=== PATIENT | female | born 1960 | race Caucasian/White ===

== ENCOUNTER → 2018-12-01 14:50 | Outpatient (CLI) | payer OTHER, MEDICAID, SELFPAY ==
--- NOTE | 2018-12-01 | DI.RAD.S_ITS ---
PROCEDURE: XR SHOULDER LT MIN 2V INDICATIONS: L SHOULDER PAIN TECHNIQUE: 3 views of the shoulder were acquired. COMPARISON: None. FINDINGS: Bones: No fractures or dislocations but there is moderately severe a.c. joint osteoarthritis. No suspicious bony lesions. Visualized ribs appear intact. Soft tissues: No suspicious soft tissue calcifications. IMPRESSION: Moderately severe a.c. joint osteoarthritis, no recent trauma found. Dictated by: Prabhu Cochran M.D. on 12/01/2018 at 15:53 Approved by: Prabhu Cochran M.D. on 12/01/2018 at 15:54
== END ==
PROVIDERS: PCP Family Medicine; Visit Provider Nurse Practitioner
DX: M25.512 Pain in left shoulder (principal); M19.012 Primary osteoarthritis, left shoulder; G89.29 Other chronic pain
CPT/HCPCS: 73030

== ENCOUNTER 2018-12-01 15:19 | Emergency (ER) | payer OTHER, MEDICAID, SELFPAY ==
[2018-12-01 15:41] VITALS: BP 147/84; PULSE 92; RESP 18; TEMP 37.2; O2SAT 98
[2018-12-01 17:55] VITALS: BP 138/79; PULSE 90; RESP 17; O2SAT 100
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
[2018-12-01] MEDS: SODIUM CHLORIDE 0.9% 1,000 ML 150 ML IV (18:30)
[2018-12-01] MEDS: PANTOPRAZOLE 40 MG VIAL IV (18:30)
[2018-12-01 18:33] LABS: Add Manual Diff / Slide Review NO; Basophils Absolute Auto 0 /uL (0-100); Basophils Percent Auto 0.5 % (0-2); Eosinophils Absolute Auto 0 /uL (0-450); Eosinophils Percent Auto 0.7 % (2-4); Hematocrit 33.3 % (36-46); Hemoglobin 11.3 g/dL (12.0-16.0); Lymphocytes Absolute Auto 2400 /uL (1100-4500); Lymphocytes Percent Auto 35.8 % (25-40); Mean Corpuscular HGB Conc 33.8 % (30-36); Mean Corpuscular Hemoglobin 36.1 PG (26-34); Mean Corpuscular Volume 106.8 fL (80-100); Monocytes Absolute Auto 700 /uL (0-900); Monocytes Percent Auto 10.4 % (3-14); Neutrophils Absolute Auto 3600 /uL (1500-7000); Neutrophils Percent Auto 52.6 % (50-75); Platelet Count 111 X10^3/uL (150-400); Red Blood Cell Count 3.12 X10^6/uL (4.0-5.2); White Blood Cell Count 6.8 X10^3/uL (4.5-11.0)
--- NOTE | 2018-12-01 18:33 | DI.CT.S_ITS ---
PROCEDURE: CT ABDOMEN PELVIS W CON INDICATIONS: abd bloating, vomiting blood. TECHNIQUE: After the administration of intravenous contrast, 5 mm thick sections acquired from the diaphragm to the symphysis. 5 mm coronal and sagittal reformats were acquired. For radiation dose reduction, the following was used: automated exposure control, adjustment of mA and/or kV according to patient size. COMPARISON: [facility], CT, CT PELVIS W CON, 12/05/2015, 21:42. FINDINGS: Image quality: Excellent. ABDOMEN: Lung bases: Lung bases are clear. Heart size is normal. Solid organs: Liver is enlarged and cirrhotic in appearance. Gallbladder is unremarkable. Biliary system is non dilated. Pancreas enhances normally. Spleen is normal in size and enhancement. No adrenal nodules. Kidneys demonstrate normal size and enhancement, without hydronephrosis. Peritoneum and bowel: Bowel loops are nonobstructed. There is an appearance of thickening and pericolonic inflammation surrounding the right colon extending to the proximal transverse colon. The terminal ileum is mildly prominent. The appendix is not clearly identified. Mild perihepatic fluid is present as well as fluid within the right farhad-abdomen and pelvis. Nodes and vessels: No retroperitoneal or mesenteric adenopathy by size criteria. Aorta and inferior vena cava are normal in size. Miscellaneous: No ventral hernias. Bilateral breast implants are present with appearance of partial contains rupture. PELVIS: Genitourinary: Bladder is markedly distended with a Vo catheter. Miscellaneous: No inguinal hernias or adenopathy. Bones: No suspicious bony lesions. No vertebral body compression fractures. IMPRESSION: 1. Perihepatic fluid extending to the right paracolic gutter and pelvis. There is thickening inflammatory change surrounding significant portions of the right colon extending to the transverse colon as well as terminal ileum. The appendix is not definitively identified. Overall appearance is suggestive of colitis secondary to infection or inflammation. If concern exists for appendicitis, further evaluation with oral contrast may be helpful for delineation of bowel loops amidst the inflammatory change. 2. Hepatomegaly with cirrhotic appearance. 3. Markedly bladder with Vo catheter, similar to prior exam. Dictated by: Donna Camarillo M.D. on 12/01/2018 at 19:54 Approved by: Donna Camarillo M.D. on 12/01/2018 at 20:03
[2018-12-01 18:44] LABS: Bilirubin Urine UA NEGATIVE (NEGATIVE); Color Urine UA YELLOW; Glucose Urine UA NEGATIVE (Negative); Ketones Urine UA NEGATIVE (NEGATIVE); Leukocyte Esterase Urine UA TRACE (NEGATIVE); Nitrite Urine UA POSITIVE (Negative); Occult Blood Urine UA TRACE-LYSED (Negative); Protein Urine UA NEGATIVE (Negative); Specific Gravity Urine UA 1.015 (1.000-1.035)
[2018-12-01 18:47] LABS: Alanine Aminotransferase 46 IU/L (9-52); Albumin 2.9 g/dL (3.5-5.0); Albumin Globulin Ratio 0.7 (1.0-2.8); Alkaline Phosphatase 183 U/L (38-126); Aspartate Aminotransferase 65 IU/L (14-36); Bilirubin Total 1.3 mg/dL (0.2-1.3); Blood Urea Nitrogen 12 mg/dL (7-17); Calcium 8.2 mg/dL (8.4-10.2); Carbon Dioxide 20 mmol/L (22-32); Chloride 119 mmol/L (98-107); Estimated Glomerular Filt Rate > 60.0 mL/min (>60); Globulin 3.9 g/dL (1.7-4.1); Glucose 91 mg/dL (80-110); HEMOLYSIS < 15 (0-50); Lipase 332 U/L (23-300); Potassium 3.9 mmol/L (3.4-5.1); Sodium 144 mmol/L (137-145); Total Protein 6.8 g/dL (6.3-8.2)
[2018-12-01 18:53] LABS: Appearance Urine UA Cloudy; Squamous Epithelial Cell Urine 0-1 /HPF (0-5/HPF)
[2018-12-01 18:54] LABS: Amorphous Sediment Urine 2+; Bacteria Urine Many (>30); Culture Indicated Urine Specimen Cultured; RBC Urine 1-5/HPF (0-5/HPF); WBC Urine 30-100/HPF (0-5/HPF)
[2018-12-01 20:39] VITALS: BP 109/58; PULSE 80; RESP 17; O2SAT 100
[2018-12-01] MEDS: MAG HYDROX/ALUMINUM/SIMETH SUS 20 ML, LIDOCAINE VISCOUS 2% 15 ML PO (21:01)
[2018-12-01 21:29] VITALS: BP 115/78; PULSE 93; RESP 15; O2SAT 98
== END 2018-12-01 21:30 | disposition home or self-care (01) ==
PROVIDERS: Emergency Medicine; Emergency Provider Nurse Practitioner; PCP Family Medicine
DX: N39.0 Urinary tract infection, site not specified (principal); K21.9 Gastro-esophageal reflux disease without esophagitis; M25.512 Pain in left shoulder; M19.012 Primary osteoarthritis, left shoulder; G89.29 Other chronic pain
CPT/HCPCS: 36591; 51701; 73030; 74177; 80053; 81001; 83690; 85025; 87077; 87086; 87186; 96361; 96374; 99283; 99285; C9113; Q9967

== ENCOUNTER 2019-05-25 11:10 | Observation (INO) | payer OTHER, MEDICAID, SELFPAY ==
[2019-05-25] VITALS (8 sets, daily range): BP systolic 131–164; BP diastolic 65–85; PULSE 74–98; RESP 17–20; TEMP 36.6–37.4; O2SAT 98–100; BMI 17.8
--- NOTE | 2019-05-25 11:33 | DI.RAD.S_ITS ---
PROCEDURE: XR CHEST 1V INDICATIONS: confusion TECHNIQUE: One view of the chest was acquired. COMPARISON: [facility], , CHEST 2 VIEW, 02/15/2012, 17:34. FINDINGS: Surgical changes and devices: Partially visualized thoracolumbar junction Mathis rods extend inferiorly.. Lungs and pleura: Lungs are clear. No pleural effusions or pneumothorax. Mediastinum: Mediastinal contours appear normal. Heart size is normal. Bones and chest wall: No suspicious bony lesions. Overlying soft tissues appear unremarkable. IMPRESSION: Source of altered mental status is not seen. Dictated by: Prabhu Cochran M.D. on 05/25/2019 at 12:03 Approved by: Prabhu Cochran M.D. on 05/25/2019 at 12:04
[2019-05-25] MEDS: SODIUM CHLORIDE 0.9% 1,000 ML 1000 ML IV (11:44)
--- NOTE | 2019-05-25 11:47 | ED_ITS ---
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 viewed. There is a open skin pressure ulcer on right sacrum area with slightly brownish drainage without bogginess, warm to touch, significant demarcation of redness. Right colonic to proximal to mid transverse colon and involving sigmoid colon wall thickening and suggestive of infectious or inflammatory colitis. Patient denies having diarrhea or abdominal pain. Lactate and procalcitonin were negative. According to patient's son, patient had not had previous hepatic encephalopathy. Patient's signs and symptoms is most likely due to hepatic encephalopathy as evidenced by increased ammonia level today and she was treated with lactulose [address] Peña consulted for observation admission for this and additional treatment with lactulose and to follow up with ammonia level. He kindly accepted patient care. <Dl Blanton, DO - Last Filed: 05/25/19 19:23> Lab Data Labs: Lab Results 05/25/19 05/25/19 05/25/19 Range/Units 11:30 11:30 11:30 WBC 6.6 (4.5-11.0) X10^3/uL RBC 3.69 L (4.0-5.2) X10^6/uL Hgb 12.8 (12.0-16.0) g/dL Hct 37.6 (36-46) % MCV 101.7 H (80-100) fL MCH 34.6 H (26-34) PG MCHC 34.0 (30-36) % RDW 15.5 H (11.6-14.8) % Plt Count 133 L (150-400) X10^3/uL Neut % (Auto) 66.5 (50-75) % Lymph % (Auto) 24.0 L (25-40) % [place] % (Auto) 8.3 (3-14) % Eos % (Auto) 0.9 L (2-4) % Baso % (Auto) 0.3 (0-2) % Neut # (Auto) 4400 (5961-9737) /uL Lymph # (Auto) 1600 (7752-3508) /uL [place] # (Auto) 500 (0-900) /uL Eos # (Auto) 100 (0-450) /uL Baso # (Auto) 0 (0-100) /uL PT 17.0 H (10.1-12.7) SECONDS INR 1.5 H (0.9-1.3) APTT 42 H (26.4-36.2) SECONDS Sodium 140 (137-145) mmol/L Potassium 3.7 (3.4-5.1) mmol/L Chloride 113 H (98-107) mmol/L Carbon Dioxide 19 L (22-32) mmol/L BUN 12 (7-17) mg/dL Creatinine 0.50 L (0.52-1.04) mg/dL Estimated GFR > 60.0 (>60) mL/min BUN/Creatinine Ratio 24.0 H (6-22) Glucose 126 H (80-110) mg/dL Lactate (0.7-2.1) mmol/L Calcium 8.7 (8.4-10.2) mg/dL Total Bilirubin 1.5 H (0.2-1.3) mg/dL Conjugated Bilirubin 0.0 (0.0-0.3) md/dL Unconjugated Bilirubin 0.9 (0.0-1.1) mg/dL AST 44 H (14-36) IU/L ALT 26 (<35) IU/L Alkaline Phosphatase 224 H (38-126) U/L Ammonia (9-30) umol/L Total Protein 7.2 (6.3-8.2) g/dL Albumin 3.4 L (3.5-5.0) g/dL Globulin 3.8 (1.7-4.1) g/dL Albumin/Globulin Ratio 0.9 L (1.0-2.8) Lipase (23-300) U/L Procalcitonin (<0.5) ng/mL Urine Color Urine Appearance Urine pH (4.5-8.0) Ur Specific [place] (1.000-1.035) Urine Protein (Negative) Urine Glucose (UA) (Negative) g/dL Urine Ketones (NEGATIVE) Urine Occult Blood (Negative) Urine Nitrate (Negative) Urine Bilirubin (NEGATIVE) Urine Urobilinogen (0.2) E.U./dL Ur Leukocyte Esterase (NEGATIVE) Urine RBC (0-5/HPF) Urine WBC (0-5/HPF) Ur Squamous Epith Cells (0-5/HPF) Amorphous Sediment Urine Bacteria (None) Urine Mucus (Negative) Ur Culture Indicated? Salicylates < 1.0 (<20) mg/dL U Opiates 300ng/mL cut (Negative) Ur Oxycodone Screen (Negative) Urine Methadone Screen (Negative) Acetaminophen < 10 L (10-30) ug/mL Ur Barbiturates Screen (Negative) U Tricyclic Antidepress (Negative) Ur Phencyclidine Scrn (Negative) Ur Amphetamines Screen (Negative) U Methamphetamines Scrn (Negative) Ur MDMA Scrn (Ecstasy) (Negative) U Benzodiazepines Scrn (Negative) Urine Cocaine Screen (Negative) U Marijuana (THC) Screen (Negative) Ethyl Alcohol < 10 ( - 10) mg/dL 05/25/19 05/25/19 05/25/19 Range/Units 11:30 11:30 11:30 WBC (4.5-11.0) X10^3/uL RBC (4.0-5.2) X10^6/uL Hgb (12.0-16.0) g/dL Hct (36-46) % MCV (80-100) fL MCH (26-34) PG MCHC (30-36) % RDW (11.6-14.8) % Plt Count (150-400) X10^3/uL Neut % (Auto) (50-75) % Lymph % (Auto) (25-40) % [place] % (Auto) (3-14) % Eos % (Auto) (2-4) % Baso % (Auto) (0-2) % Neut # (Auto) (9910-2738) /uL Lymph # (Auto) (8780-8568) /uL [place] # (Auto) (0-900) /uL Eos # (Auto) (0-450) /uL Baso # (Auto) (0-100) /uL PT (10.1-12.7) SECONDS INR (0.9-1.3) APTT (26.4-36.2) SECONDS Sodium (137-145) mmol/L Potassium (3.4-5.1) mmol/L Chloride (98-107) mmol/L Carbon Dioxide (22-32) mmol/L BUN (7-17) mg/dL Creatinine (0.52-1.04) mg/dL Estimated GFR (>60) mL/min BUN/Creatinine Ratio (6-22) Glucose (80-110) mg/dL Lactate 2.1 (0.7-2.1) mmol/L Calcium (8.4-10.2) mg/dL Total Bilirubin (0.2-1.3) mg/dL Conjugated Bilirubin (0.0-0.3) md/dL Unconjugated Bilirubin (0.0-1.1) mg/dL AST (14-36) IU/L ALT (<35) IU/L Alkaline Phosphatase (38-126) U/L Ammonia 119 H (9-30) umol/L Total Protein (6.3-8.2) g/dL Albumin (3.5-5.0) g/dL Globulin (1.7-4.1) g/dL Albumin/Globulin Ratio (1.0-2.8) Lipase (23-300) U/L Procalcitonin < 0.05 (<0.5) ng/mL Urine Color Urine Appearance Urine pH (4.5-8.0) Ur Specific [place] (1.000-1.035) Urine Protein (Negative) Urine Glucose (UA) (Negative) g/dL Urine Ketones (NEGATIVE) Urine Occult Blood (Negative) Urine Nitrate (Negative) Urine Bilirubin (NEGATIVE) Urine Urobilinogen (0.2) E.U./dL Ur Leukocyte Esterase (NEGATIVE) Urine RBC (0-5/HPF) Urine WBC (0-5/HPF) Ur Squamous Epith Cells (0-5/HPF) Amorphous Sediment Urine Bacteria (None) Urine Mucus (Negative) Ur Culture Indicated? Salicylates (<20) mg/dL U Opiates 300ng/mL cut (Negative) Ur Oxycodone Screen (Negative) Urine Methadone Screen (Negative) Acetaminophen (10-30) ug/mL Ur Barbiturates Screen (Negative) U Tricyclic Antidepress (Negative) Ur Phencyclidine Scrn (Negative) Ur Amphetamines Screen (Negative) U Methamphetamines Scrn (Negative) Ur MDMA Scrn (Ecstasy) (Negative) U Benzodiazepines Scrn (Negative) Urine Cocaine Screen (Negative) U Marijuana (THC) Screen (Negative) Ethyl Alcohol ( - 10) mg/dL 05/25/19 05/25/19 05/25/19 Range/Units 11:30 12:00 12:00 WBC (4.5-11.0) X10^3/uL RBC (4.0-5.2) X10^6/uL Hgb (12.0-16.0) g/dL Hct (36-46) % MCV (80-100) fL MCH (26-34) PG MCHC (30-36) % RDW (11.6-14.8) % Plt Count (150-400) X10^3/uL Neut % (Auto) (50-75) % Lymph % (Auto) (25-40) % [place] % (Auto) (3-14) % Eos % (Auto) (2-4) % Baso % (Auto) (0-2) % Neut # (Auto) (1249-5532) /uL Lymph # (Auto) (8662-3498) /uL [place] # (Auto) (0-900) /uL Eos # (Auto) (0-450) /uL Baso # (Auto) (0-100) /uL PT (10.1-12.7) SECONDS INR (0.9-1.3) APTT (26.4-36.2) SECONDS Sodium (137-145) mmol/L Potassium (3.4-5.1) mmol/L Chloride (98-107) mmol/L Carbon Dioxide (22-32) mmol/L BUN (7-17) mg/dL Creatinine (0.52-1.04) mg/dL Estimated GFR (>60) mL/min BUN/Creatinine Ratio (6-22) Glucose (80-110) mg/dL Lactate (0.7-2.1) mmol/L Calcium (8.4-10.2) mg/dL Total Bilirubin (0.2-1.3) mg/dL Conjugated Bilirubin (0.0-0.3) md/dL Unconjugated Bilirubin (0.0-1.1) mg/dL AST (14-36) IU/L ALT (<35) IU/L Alkaline Phosphatase (38-126) U/L Ammonia (9-30) umol/L Total Protein (6.3-8.2) g/dL Albumin (3.5-5.0) g/dL Globulin (1.7-4.1) g/dL Albumin/Globulin Ratio (1.0-2.8) Lipase 130 (23-300) U/L Procalcitonin (<0.5) ng/mL Urine Color Yellow Urine Appearance Sl cloudy Urine pH 5.5 (4.5-8.0) Ur Specific [place] 1.025 (1.000-1.035) Urine Protein Trace H (Negative) Urine Glucose (UA) Negative (Negative) g/dL Urine Ketones Trace H (NEGATIVE) Urine Occult Blood 1+ H (Negative) Urine Nitrate Positive (Negative) Urine Bilirubin Negative (NEGATIVE) Urine Urobilinogen 0.2 (0.2) E.U./dL Ur Leukocyte Esterase Negative (NEGATIVE) Urine RBC 1-5/hpf (0-5/HPF) Urine WBC 5-10/hpf H (0-5/HPF) Ur Squamous Epith Cells 5-10 /hpf H (0-5/HPF) Amorphous Sediment 1+ Urine Bacteria Many (>30) H (None) Urine Mucus 3+ H (Negative) Ur Culture Indicated? Specimen cultured Salicylates (<20) mg/dL U Opiates 300ng/mL cut Negative (Negative) Ur Oxycodone Screen Positive H (Negative) Urine Methadone Screen Negative (Negative) Acetaminophen (10-30) ug/mL Ur Barbiturates Screen Negative (Negative) U Tricyclic Antidepress Negative (Negative) Ur Phencyclidine Scrn Negative (Negative) Ur Amphetamines Screen Negative (Negative) U Methamphetamines Scrn Negative (Negative) Ur MDMA Scrn (Ecstasy) Negative (Negative) U Benzodiazepines Scrn Negative (Negative) Urine Cocaine Screen Negative (Negative) U Marijuana (THC) Screen Negative (Negative) Ethyl Alcohol ( - 10) mg/dL Point of Care Testing Glucose POC 128 Discharge Plan Departure Patient Disposition: Admitted as Observation Clinical Impression: Acute hepatic encephalopathy, Chronic paraplegia, Pressure injury of sacral reg ion, stage 2 Hepatic cirrhosis Qualifiers: Hepatic cirrhosis type: unspecified hepatic cirrhosis Ascites presence: with ascites Qualified Code(s): K74.60 - Unspecified cirrhosis of liver Hepatitis C, chronic Qualifiers: Hepatic coma status: without hepatic coma Qualified Code(s): B18.2 - Chronic viral hepatitis C Discharge Date/Time: 05/25/19 16:37 Admit Date/Time: 05/25/19 14:47 Admit Provider: Keshawn Peña
[2019-05-25 11:52] LABS: Add Manual Diff / Slide Review NO; Basophils Absolute Auto 0 /uL (0-100); Basophils Percent Auto 0.3 % (0-2); Eosinophils Absolute Auto 100 /uL (0-450); Eosinophils Percent Auto 0.9 % (2-4); Hematocrit 37.6 % (36-46); Hemoglobin 12.8 g/dL (12.0-16.0); Lymphocytes Absolute Auto 1600 /uL (1100-4500); Mean Corpuscular Hemoglobin 34.6 PG (26-34); Mean Corpuscular Volume 101.7 fL (80-100); Monocytes Absolute Auto 500 /uL (0-900); Monocytes Percent Auto 8.3 % (3-14); Neutrophils Absolute Auto 4400 /uL (1500-7000); Neutrophils Percent Auto 66.5 % (50-75); Platelet Count 133 X10^3/uL (150-400); Red Blood Cell Count 3.69 X10^6/uL (4.0-5.2); Red Cell Distribution Width 15.5 % (11.6-14.8); White Blood Cell Count 6.6 X10^3/uL (4.5-11.0)
[2019-05-25 12:01] LABS: INR 1.5 (0.9-1.3)
[2019-05-25 12:04] LABS: PTT Partial Thromboplastin Tim 42 SECONDS (26.4-36.2)
[2019-05-25] MEDS: LIDOCAINE 2% (UROJET) 5 ML GEL TOP (12:04)
[2019-05-25 12:05] LABS: Acetaminophen < 10 ug/mL (10-30); Alanine Aminotransferase 26 IU/L (<35); Albumin 3.4 g/dL (3.5-5.0); Albumin Globulin Ratio 0.9 (1.0-2.8); Alkaline Phosphatase 224 U/L (38-126); Aspartate Aminotransferase 44 IU/L (14-36); Bilirubin Total 1.5 mg/dL (0.2-1.3); Bilirubin Unconjugated 0.9 mg/dL (0.0-1.1); Blood Urea Nitrogen 12 mg/dL (7-17); Calcium 8.7 mg/dL (8.4-10.2); Carbon Dioxide 19 mmol/L (22-32); Chloride 113 mmol/L (98-107); Estimated Glomerular Filt Rate > 60.0 mL/min (>60); Ethanol (ETOH) < 10 mg/dL; Globulin 3.8 g/dL (1.7-4.1); Glucose 126 mg/dL (80-110); HEMOLYSIS < 15 (0-50); Potassium 3.7 mmol/L (3.4-5.1); Salicylate < 1.0 mg/dL (<20); Sodium 140 mmol/L (137-145); Total Protein 7.2 g/dL (6.3-8.2)
[2019-05-25 12:06] LABS: Ammonia (NH3) 119 umol/L (9-30)
[2019-05-25 12:07] LABS: Lactate (Lactic Acid) 2.1 mmol/L (0.7-2.1)
--- NOTE | 2019-05-25 12:13 | PC.NURSE ---
+ bladder prolapse noted.
--- NOTE | 2019-05-25 12:15 | DI.CT.S_ITS ---
PROCEDURE: CT ABDOMEN PELVIS W CON INDICATIONS: abdominal distention, confusion TECHNIQUE: After the administration of intravenous contrast, 5 mm thick sections acquired from the diaphragm to the symphysis. 5 mm coronal and sagittal reformats were acquired. For radiation dose reduction, the following was used: automated exposure control, adjustment of mA and/or kV according to patient size. COMPARISON: [facility], CT, CT ABDOMEN PELVIS W CON, 12/01/2018, 19:07. FINDINGS: Image quality: Excellent. ABDOMEN: Lung bases: Lung bases are clear. Heart size is normal. Bilateral breast implants are intact. Solid organs: Decreased liver parenchymal density with lobulated contour is seen concerning for cirrhosis. No discrete hepatic lesion is identified. Gallbladder is is distended with mild wall enhancement. No calcified stone is seen.. Biliary system is non dilated. Pancreas enhances normally. Spleen is normal in size and enhancement. No adrenal nodules. Kidneys demonstrate normal size and enhancement, without hydronephrosis. Peritoneum and bowel: There is no evidence of bowel obstruction. Mild fecal stasis in the colon is seen. Right-sided clonic wall thickening is again seen extending to involve the proximal to midportion of sigmoid colon. There is also suggestion of terminal ileal wall thickening and narrowing of the lumen. Moderate amount of ascites fluid in abdomen or pelvis is seen. No gross peritoneal free air. Sigmoid colon wall thickening is also seen. Nodes and vessels: No retroperitoneal or mesenteric adenopathy by size criteria. Aorta and inferior vena cava are normal in size. Miscellaneous: No ventral hernias. PELVIS: Genitourinary: Pelvic catheter is seen in a decompressed urinary bladder. Miscellaneous: No inguinal hernias or adenopathy. Large posterior decubitus ulcer is seen communicating with inflammatory changes extending to posterior wall of lower rectum and anus. No definite fistulous connection is identified. Bones: No suspicious bony lesions. No vertebral body compression fractures. Fixation hardware in the thoracolumbar junction is seen. IMPRESSION: 1. Wall thickening involving terminal ileum, the right colon extending to proximal to mid transverse colon as well as wall thickening involving sigmoid colon suggestive of infectious or inflammatory colitis. Moderate amount of abdominal and pelvic ascites fluid. No gross free air. 2. Suggestion of decubitus ulceration involving posterior lower back and significant inflammatory changes surrounding lower rectum and anal region, no definite fistulous connection is seen. Clinical correlation is recommended. 3. Cirrhotic appearing liver. Vo catheter in a decompressed urinary bladder. Dictated by: Mikie Mayer M.D. on 05/25/2019 at 13:09 Approved by: Mikie Mayer M.D. on 05/25/2019 at 13:28
--- NOTE | 2019-05-25 12:15 | DI.CT.S_ITS ---
PROCEDURE: CT HEAD/BRAIN WO CON INDICATIONS: confusion TECHNIQUE: Noncontrast 4.5 mm thick angled axial sections acquired from the foramen magnum to the vertex, with coronal and sagittal reformats. For radiation dose reduction, the following was used: automated exposure control, adjustment of mA and/or kV according to patient size. COMPARISON: None. FINDINGS: Image quality: Excellent. CSF spaces: Basal cisterns are patent. No extra-axial fluid collections. The ventricles are symmetric in size and shape. Brain: No intracranial bleeds or masses. There is mild cerebral volume loss for age, with resultant ventricular and sulcal prominence. There are mild periventricular and deep white matter chronic small vessel ischemic changes. Skull and face: Calvarium and visualized facial bones appear intact, without suspicious lesions. Sinuses: Visualized sinuses and mastoids are clear. IMPRESSION: No acute intracranial disease process. Dictated by: Mariposa Aranda MD, PhD on 05/25/2019 at 12:55 Approved by: Mariposa Aranda MD, PhD on 05/25/2019 at 12:57
[2019-05-25 12:19] LABS: Procalcitonin < 0.05 ng/mL (<0.5)
--- NOTE | 2019-05-25 12:21 | PC.NURSE ---
Son states Dr. Goddard is Pt's GI doctor/ [facility].
[2019-05-25 12:30] LABS: Lipase 130 U/L (23-300)
[2019-05-25 12:32] LABS: Ur Creatinine Normal (Normal); Ur Specific Gravity Normal (Normal); Urine Tetrahydrocannabinol Negative (Negative); Urine pH Normal (Normal)
[2019-05-25 12:33] LABS: UR Morphine/Opiate cutoff 300 Negative (Negative); Urine Amphetamines Negative (Negative); Urine Barbiturates Negative (Negative); Urine Benzodiazepines Negative (Negative); Urine Cocaine Negative (Negative); Urine MDMA Negative (Negative); Urine Methadone Negative (Negative); Urine Methamphetamines Negative (Negative); Urine Oxycodone Positive (Negative); Urine Phencyclidine Negative (Negative); Urine Tricyclic Antidepressant Negative (Negative)
[2019-05-25 12:37] LABS: Appearance Urine UA SL CLOUDY; Bilirubin Urine UA NEGATIVE (NEGATIVE); Color Urine UA YELLOW; Glucose Urine UA NEGATIVE (Negative); Ketones Urine UA TRACE (NEGATIVE); Leukocyte Esterase Urine UA NEGATIVE (NEGATIVE); Nitrite Urine UA POSITIVE (Negative); Occult Blood Urine UA 1+ (Negative); Protein Urine UA TRACE (Negative); Specific Gravity Urine UA 1.025 (1.000-1.035); Urobilinogen Urine UA 0.2 E.U./dL (0.2); pH Urine UA 5.5 (4.5-8.0)
[2019-05-25 12:47] LABS: Amorphous Sediment Urine 1+; Bacteria Urine Many (>30); Culture Indicated Urine Specimen Cultured; Mucus Urine 3+ (Negative); RBC Urine 1-5/HPF (0-5/HPF); Squamous Epithelial Cell Urine 5-10 /HPF (0-5/HPF); WBC Urine 5-10/HPF (0-5/HPF)
[2019-05-25] MEDS: LACTULOSE 20 GM/30 ML SOLUTION PO ×2 (15:07→20:44)
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
[2019-05-25] MEDS: GLECAPREVIR PIBRENTASVIR 3 EACH PO (19:52)
[2019-05-25] MEDS: HEPARIN 5,000 UNIT/ML VIAL 5000 UNIT SUBCUT (20:43)
[2019-05-25] MEDS: ACETAMINOPHEN 325 MG TABLET 650 MG PO (20:44)
[2019-05-26 00:30] VITALS: BP 125/63; PULSE 89; RESP 18; TEMP 37.5; O2SAT 98
[2019-05-26 03:25] VITALS: BP 119/62; PULSE 89; RESP 18; TEMP 37.1; O2SAT 98
[2019-05-26] MEDS: BUTALB/APAP/CAFFEINE 50/325/40 TABLET 1 EACH PO (04:08)
--- NOTE | 2019-05-26 04:25 | PC.NURSE ---
Addendum entered by Marquise Holman R.N. 05/26/19 06:42: Patient pulled IV out at 0500 R hand. Stated I don't know how it came out. Seemed confused about how IV was pulled out. Original Note: Patient is AxO4. VSS. 0100 patient had a brief check, and had small amount of urine in brief, bladder scanned and showed 450-500ml. Tee COTO notified of bladder scan. Straight Cath order as needed >400ml. Patient had straight cath done at 0100 w/425 ml output. 0300: patient c/o headache/migraine. Asked for medication that she typically takes for Migraines. Tee COTO notified, order placed for Fiorcet as a one time dose.
[2019-05-26] MEDS: PANTOPRAZOLE 20 MG TABLET PO (06:45)
[2019-05-26 06:50] LABS: Add Manual Diff / Slide Review NO; Basophils Absolute Auto 0 /uL (0-100); Basophils Percent Auto 0.3 % (0-2); Eosinophils Absolute Auto 100 /uL (0-450); Eosinophils Percent Auto 1.1 % (2-4); Hematocrit 34.2 % (36-46); Hemoglobin 11.8 g/dL (12.0-16.0); Lymphocytes Absolute Auto 1900 /uL (1100-4500); Lymphocytes Percent Auto 38.8 % (25-40); Mean Corpuscular HGB Conc 34.4 % (30-36); Mean Corpuscular Hemoglobin 34.8 PG (26-34); Mean Corpuscular Volume 101.2 fL (80-100); Monocytes Absolute Auto 500 /uL (0-900); Monocytes Percent Auto 10.9 % (3-14); Neutrophils Absolute Auto 2400 /uL (1500-7000); Neutrophils Percent Auto 48.9 % (50-75); Platelet Count 109 X10^3/uL (150-400); Red Blood Cell Count 3.38 X10^6/uL (4.0-5.2); Red Cell Distribution Width 15.5 % (11.6-14.8)
[2019-05-26 06:57] LABS: INR 1.5 (0.9-1.3); Prothrombin Time 17.2 SECONDS (10.1-12.7)
[2019-05-26 07:00] LABS: PTT Partial Thromboplastin Tim 42 SECONDS (26.4-36.2)
[2019-05-26 07:04] LABS: Alanine Aminotransferase 24 IU/L (<35); Albumin 2.9 g/dL (3.5-5.0); Albumin Globulin Ratio 0.8 (1.0-2.8); Alkaline Phosphatase 163 U/L (38-126); Aspartate Aminotransferase 40 IU/L (14-36); Bilirubin Total 1.9 mg/dL (0.2-1.3); Bilirubin Unconjugated 1.2 mg/dL (0.0-1.1); Blood Urea Nitrogen 6 mg/dL (7-17); Calcium 8.3 mg/dL (8.4-10.2); Carbon Dioxide 19 mmol/L (22-32); Chloride 111 mmol/L (98-107); Estimated Glomerular Filt Rate > 60.0 mL/min (>60); Globulin 3.6 g/dL (1.7-4.1); Glucose 106 mg/dL (80-110); HEMOLYSIS < 15 (0-50); Magnesium 1.9 mg/dL (1.6-2.3); Potassium 3.5 mmol/L (3.4-5.1); Sodium 138 mmol/L (137-145); Total Protein 6.5 g/dL (6.3-8.2)
[2019-05-26 07:32] LABS: TSH w/ Reflex to FT4 0.74 uIU/mL (0.47-4.68)
[2019-05-26 08:00] VITALS: BP 136/74; PULSE 72; RESP 16; TEMP 36.5; O2SAT 99
[2019-05-26] MEDS: LACTULOSE 20 GM/30 ML SOLUTION PO (09:45)
[2019-05-26] MEDS: HEPARIN 5,000 UNIT/ML VIAL 5000 UNIT SUBCUT (09:45)
[2019-05-26] MEDS: FUROSEMIDE 20 MG TABLET PO (09:45)
[2019-05-26] MEDS: SPIRONOLACTONE 50 MG TABLET PO (09:45)
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
--- NOTE | 2019-05-26 13:10 | PC.NURSE ---
Pt discharged home in personal wheelchair to POV with son and all belongings. IV removed. Discussed s/sx of stroke (sudden numbness, weakness, difficulty speaking, or severe headache) and to call 911 with any onset. Discussed treatment of UTI with new rx of cefpodoxime for 3 days and to clean [place] area thoroughly when straight catheterizing, and to call physician for any continued or increased UTI symptoms. Discussed new rx for lasix and spironolactone for acites fluid removal and lactulose for ammonia levels. Encouraged pt to follow up with pcp to discuss lactulose and concerns regarding vaginal prolapse. Verified by Hyacinth KING
--- NOTE | 2019-05-26 13:46 | CM.DANOTE ---
Addendum entered by Michela Santo LPN 05/26/19 14:01: Length of stay: < 24 hours. Addendum entered by Michela Santo LPN 05/26/19 13:54: Went to room at 1330 with intent to meet with pt and her son. Noted that she had already left for home with her son after RN went over d/c paperwork with them. She was taken out in her w/c to their private vehicle. Dr. Peña has advised pt and her son to follow up on several issues in the outpt setting. His d/c summary at this time is in draft. Original Note: Discharge Planning/Care Management DCP: assessment: case received, EMR reviewed. Discussed in Team Rounds. Pt is a 59 year old female who admitted yesterday late afternoon to care of hospitalist team. Admission status: OBS: confirmed by UR FERNANDO Schaffer. Payer: [facility]/Medicaid PCP: not listed. Dr. Peña states pt sees a GI specialist. Pt is noted to be disabled, paraplegic with self cath done at home. Dx hep C. She was noted to have + drug screen for oxycodone with apparent home medication of same. Pt is cared for by her son. No formal POA in place. Dr. Peña noted pt was eager to get back home. P: was to see pt and her son as soon as caseload need allowed to continue the assessment process. CM Discharge Assessment Start: 05/26/19 13:38 Freq: Status: Active Protocol: Document 05/26/19 13:44 ITV (Rec: 05/26/19 13:45 ITV [id number]) Discharge Planning Assessment Advance Directives? No Advance Directives on File No History Provided By Patient,Family Member Prior Living Arrangements House Household Members children Document 05/26/19 13:45 ITV (Rec: 05/26/19 13:46 ITV [id number]) Discharge Planning Assessment Advance Directives? No Advance Directives on File No History Provided By Medical Record Prior Living Arrangements House Household Members children Independent with ADL's No Is patient alert and oriented? No Review Status In Process
== END 2019-05-26 13:18 | disposition home or self-care (01) ==
LOC: ED 11:24 → AC 14:49
PROVIDERS: Admitting Provider Internal Medicine; Emergency Provider Nurse Practitioner Family; Referring Provider Nurse Practitioner Family; Visit Provider Internal Medicine
DX: G92 Toxic encephalopathy (principal); R41.0 Disorientation, unspecified; G82.20 Paraplegia, unspecified; Z99.3 Dependence on wheelchair; K74.60 Unspecified cirrhosis of liver; Z86.19 Personal history of other infectious and parasitic diseases; N30.00 Acute cystitis without hematuria; R93.3 Abnormal findings on diagnostic imaging of other parts of digestive tract; R18.8 Other ascites
CPT/HCPCS: 36415; 51701; 70450; 71045; 74177; 80048; 80053; 80076; 80305; 80320; 80329; 81001; 82140; 83605; 83690; 83735; 84145; 84443; 85025; 85610; 85730; 87040; 87077; 87086; 87186; 93005; 96360; 96361; 99285; G0378; G0480; J1644; Q9967

== ENCOUNTER 2019-07-27 17:03 | Observation (INO) | payer OTHER, SELFPAY ==
[2019-05-25 17:02] VITALS: BMI 17.8
[2019-07-27 17:11] VITALS: BMI 16.0
[2019-07-27 18:00] VITALS: BP 113/57; PULSE 91; RESP 18; O2SAT 99
--- NOTE | 2019-07-27 18:16 | ED_ITS ---
HPI - General Adult General Chief complaint: Altered Mental Status Stated complaint: cold,confusion,states ammonia build up Time Seen by Provider: 07/27/19 18:04 Source: patient and family Mode of arrival: Wheelchair Limitations: no limitations History of Present Illness HPI narrative: Patient is a 59-year-old female. Recently diagnosed with cirrhosis of the liver. Has been on lactulose in the past but is not currently taking it now. According to patient's family at bedside she is only taking furosemide and spironolactone. Patient is wheelchair-bound. 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 She does self cath at home at baseline. Patient is here with family. Family states that over the past several days they have noticed that she has become more confused. They believe that potentially her ammonia level is elevated. This is happened to her in the past. Patient also states that she is having lower abdominal pain and cannot urinate. Brought in by family for evaluation. Related Data Home Medications Medication Instructions Recorded Confirmed [id number]-[id number] 1 tab PO DAILY PRN 12/01/18 07/27/19 omeprazole 20 mg PO QAM 12/01/18 05/25/19 Mavyret 3 tab PO QPM 05/25/19 05/25/19 Previous Rx's Medication Instructions Recorded furosemide 20 mg PO DAILY 30 Days #30 tab 05/26/19 lactulose 20 gm PO BID 30 Days #1800 ml 05/26/19 spironolactone 50 mg PO DAILY 30 Days #30 tab 05/26/19 Allergies Allergy/AdvReac Type Severity Reaction Status Date / Time No Known Drug Allergies Allergy Verified 07/27/19 17:13 Review of Systems Constitutional Constitutional: Denies fever(s) and Denies headache(s) ENT Ears, Nose, Mouth, and Throat: Denies dizziness and Denies headache(s) Cardiovascular Cardiovascular: Denies chest pain and Denies dyspnea Respiratory Respiratory: Denies dyspnea Gastrointestinal Gastrointestinal: Reports abdominal pain and Denies vomiting Musculoskeletal Comments: No change in baseline musculoskeletal status per family at bedside Integumentary/Breasts Skin/Breast: Denies rash Neurologic Neurologic: Denies abnormal movements, Denies abnormal speech, Reports confusion, Denies dizziness and Denies headache(s) Psychiatric Psychiatric: Denies anxiety and Reports confusion Patient History Medical History Acute hepatic encephalopathy (Acute) Altered mental status (Acute) Hepatic cirrhosis (Acute) Hepatitis C (Acute) Paraplegia (Acute) Self-catheterizes urinary bladder (Acute) Smoker (Acute) Wheelchair bound (Acute) Family History Brother Age: 63 Blind Grandmother Age: 100 Pancreatic cancer Social History household members: children Smoking Status: Current every day smoker alcohol intake: current Smoking Status: Current every day smoker alcohol intake frequency: 0-2 drinks per day Substance Use Type: marijuana Exam Initial Vital Signs Initial Vital Signs: Vital Signs Pulse Rate 91 H 07/27/19 18:00 Respiratory Rate 18 07/27/19 18:00 Blood Pressure 113/57 L 07/27/19 18:00 Pulse Oximetry 99 07/27/19 18:00 Const General: cooperative Limitations: altered mental status HENMT Head: normal to inspection and normocephalic Resp Effort & Inspection: normal respiratory effort Auscultation: clear to auscultation bilaterally Cardio Rate: regular rate Rhythm: regular rhythm GI Inspection: distended (Lower abdomen) Palpation: soft and tender (Lower abdomen) Skin Lesions: no lesions Rashes: no rashes Neuro General: alert and awake Cognition: abnormal cognition Speech: speech normal Extrem General: capillary refill normal Psych Appearance: grossly normal and well kempt Scores GCS [place] coma scale eye opening: Spontaneous [place] coma scale verbal response: Confused [place] coma scale motor response: Obey commands Herm[place] coma scale total score: 14 Course Orders Ordered: ED Orders 07/27/19 18:02 Urine Culture Stat Urine Microscopic Stat 07/27/19 18:11 Urine Microscopic Stat 07/27/19 18:13 Acetaminophen Stat Ammonia (NH3) Stat Complete Blood Count AUTO DIFF Stat Comprehensive Metabolic Panel Stat Ethanol (ETOH) Stat Lipase Stat Partial Thromboplastin Time Stat Prothrombin Time INR Stat 07/27/19 18:38 Lactate (Lactic Acid) Stat Furosemide (Lasix) 20 mg PO DAILY DON Sodium Chloride (Normal Saline 0.45%) 1,000 mls @ 75 mls/hr IV CONT DON Last Admin: 07/27/19 23:01 Dose: 75 mls/hr Documented by: LEANNE Ceftriaxone Sodium/Dextrose (Rocephin) 1 gm in 50 mls @ 100 mls/hr IV Q24H [facility] Ibuprofen (Advil) 600 mg PO Q6HR PRN PRN Reason: Fever/Mild Pain (1-3) Lactulose (Enulose) 20 gm PO QID [facility] Naloxone HCl (Narcan) 0.2 mg IV Q2MIN PRN PRN Reason: Opiate Reversal Non-Formulary Medication (Glecaprevir-Pibrentasvir [Mavyret]) 3 tab PO QPM [facility] Ondansetron HCl (Zofran) 4 mg IV Q8HR PRN PRN Reason: Nausea And Vomiting Pantoprazole Sodium (Protonix) 20 mg PO 0600 [facility] Spironolactone (Aldactone) 50 mg PO DAILY [facility] Discontinued Medications Ceftriaxone Sodium/Dextrose (Rocephin) 1 gm in 50 mls @ 100 mls/hr IV NOW ONE Stop: 07/27/19 20:36 Last Admin: 07/27/19 21:35 Dose: 100 mls/hr Documented by: KINGA Ceftriaxone Sodium/Dextrose (Rocephin) 1 gm in 50 mls @ 100 mls/hr IV Q24H [facility] Ceftriaxone Sodium/Dextrose (Rocephin) 1 gm in 50 mls @ 100 mls/hr IV Q24H [facility] Lactulose (Enulose) 20 gm PO NOW ONE Stop: 07/27/19 20:07 Last Admin: 07/27/19 20:18 Dose: 20 gm Documented by: PINA Vital Signs Vital signs: Vital Signs - 8 hr 07/27/19 18:00 07/27/19 18:30 07/27/19 18:43 Temperature 98.2 F Pulse Rate 91 H 93 H Respiratory Rate 18 18 Blood Pressure [Right Arm] 113/57 L 156/68 H Pulse Oximetry 99 98 07/27/19 20:18 Temperature Pulse Rate 100 H Respiratory Rate Blood Pressure [Right Arm] 123/60 Pulse Oximetry 98 Medical Decision Making Medical Records Medical records reviewed: Yes I reviewed the patient's medical records. Lab Data Lab results reviewed: Yes I reviewed the patient's lab results. Result diagrams: 07/27/19 18:13 07/27/19 18:13 Labs: Lab Results 07/27/19 07/27/19 07/27/19 Range/Units 18:02 18:13 18:13 WBC 5.4 (4.5-11.0) X10^3/uL RBC 3.94 L (4.0-5.2) X10^6/uL Hgb 13.1 (12.0-16.0) g/dL Hct 38.7 (36-46) % MCV 98.1 (80-100) fL MCH 33.3 (26-34) PG MCHC 33.9 (30-36) % RDW 16.1 H (11.6-14.8) % Plt Count 145 L (150-400) X10^3/uL Neut % (Auto) 51.4 (50-75) % Lymph % (Auto) 36.3 (25-40) % [place] % (Auto) 10.5 (3-14) % Eos % (Auto) 0.9 L (2-4) % Baso % (Auto) 0.9 (0-2) % Neut # (Auto) 2800 (3364-2252) /uL Lymph # (Auto) 2000 (7232-0945) /uL [place] # (Auto) 600 (0-900) /uL Eos # (Auto) 100 (0-450) /uL Baso # (Auto) 0 (0-100) /uL PT (10.1-12.7) SECONDS INR (0.9-1.3) APTT (26.4-36.2) SECONDS Sodium (137-145) mmol/L Potassium (3.4-5.1) mmol/L Chloride (98-107) mmol/L Carbon Dioxide (22-32) mmol/L BUN (7-17) mg/dL Creatinine (0.52-1.04) mg/dL Estimated GFR (>60) mL/min BUN/Creatinine Ratio (6-22) Glucose (80-110) mg/dL Lactate (0.7-2.1) mmol/L Calcium (8.4-10.2) mg/dL Total Bilirubin (0.2-1.3) mg/dL AST (14-36) IU/L ALT (<35) IU/L Alkaline Phosphatase (38-126) U/L Ammonia 56 H (9-30) umol/L Total Protein (6.3-8.2) g/dL Albumin (3.5-5.0) g/dL Globulin (1.7-4.1) g/dL Albumin/Globulin Ratio (1.0-2.8) Lipase (23-300) U/L Urine RBC 1-5/hpf (0-5/HPF) Urine WBC 30-100/hpf H (0-5/HPF) Calcium Oxalate Crystal Moderate H Urine Bacteria Many (>30) H (None) Urine Mucus 3+ H (Negative) Ur Culture Indicated? Specimen cultured Acetaminophen (10-30) ug/mL Ethyl Alcohol ( - 10) mg/dL 07/27/19 07/27/19 07/27/19 Range/Units 18:13 18:13 18:13 WBC (4.5-11.0) X10^3/uL RBC (4.0-5.2) X10^6/uL Hgb (12.0-16.0) g/dL Hct (36-46) % MCV (80-100) fL MCH (26-34) PG MCHC (30-36) % RDW (11.6-14.8) % Plt Count (150-400) X10^3/uL Neut % (Auto) (50-75) % Lymph % (Auto) (25-40) % [place] % (Auto) (3-14) % Eos % (Auto) (2-4) % Baso % (Auto) (0-2) % Neut # (Auto) (1916-7396) /uL Lymph # (Auto) (3608-0912) /uL [place] # (Auto) (0-900) /uL Eos # (Auto) (0-450) /uL Baso # (Auto) (0-100) /uL PT 16.2 H (10.1-12.7) SECONDS INR 1.4 H (0.9-1.3) APTT 43 H (26.4-36.2) SECONDS Sodium 140 (137-145) mmol/L Potassium 4.1 (3.4-5.1) mmol/L Chloride 112 H (98-107) mmol/L Carbon Dioxide 20 L (22-32) mmol/L BUN 13 (7-17) mg/dL Creatinine 0.48 L (0.52-1.04) mg/dL Estimated GFR > 60.0 (>60) mL/min BUN/Creatinine Ratio 27.1 H (6-22) Glucose 95 (80-110) mg/dL Lactate (0.7-2.1) mmol/L Calcium 9.5 (8.4-10.2) mg/dL Total Bilirubin 1.3 (0.2-1.3) mg/dL AST 47 H (14-36) IU/L ALT 29 (<35) IU/L Alkaline Phosphatase 190 H (38-126) U/L Ammonia (9-30) umol/L Total Protein 7.6 (6.3-8.2) g/dL Albumin 3.6 (3.5-5.0) g/dL Globulin 4.0 (1.7-4.1) g/dL Albumin/Globulin Ratio 0.9 L (1.0-2.8) Lipase (23-300) U/L Urine RBC (0-5/HPF) Urine WBC (0-5/HPF) Calcium Oxalate Crystal Urine Bacteria (None) Urine Mucus (Negative) Ur Culture Indicated? Acetaminophen < 10 L (10-30) ug/mL Ethyl Alcohol < 10 ( - 10) mg/dL 07/27/19 07/27/19 Range/Units 18:13 18:38 WBC (4.5-11.0) X10^3/uL RBC (4.0-5.2) X10^6/uL Hgb (12.0-16.0) g/dL Hct (36-46) % MCV (80-100) fL MCH (26-34) PG MCHC (30-36) % RDW (11.6-14.8) % Plt Count (150-400) X10^3/uL Neut % (Auto) (50-75) % Lymph % (Auto) (25-40) % [place] % (Auto) (3-14) % Eos % (Auto) (2-4) % Baso % (Auto) (0-2) % Neut # (Auto) (0693-2615) /uL Lymph # (Auto) (0968-5037) /uL [place] # (Auto) (0-900) /uL Eos # (Auto) (0-450) /uL Baso # (Auto) (0-100) /uL PT (10.1-12.7) SECONDS INR (0.9-1.3) APTT (26.4-36.2) SECONDS Sodium (137-145) mmol/L Potassium (3.4-5.1) mmol/L Chloride (98-107) mmol/L Carbon Dioxide (22-32) mmol/L BUN (7-17) mg/dL Creatinine (0.52-1.04) mg/dL Estimated GFR (>60) mL/min BUN/Creatinine Ratio (6-22) Glucose (80-110) mg/dL Lactate 1.3 (0.7-2.1) mmol/L Calcium (8.4-10.2) mg/dL Total Bilirubin (0.2-1.3) mg/dL AST (14-36) IU/L ALT (<35) IU/L Alkaline Phosphatase (38-126) U/L Ammonia (9-30) umol/L Total Protein (6.3-8.2) g/dL Albumin (3.5-5.0) g/dL Globulin (1.7-4.1) g/dL Albumin/Globulin Ratio (1.0-2.8) Lipase 146 (23-300) U/L Urine RBC (0-5/HPF) Urine WBC (0-5/HPF) Calcium Oxalate Crystal Urine Bacteria (None) Urine Mucus (Negative) Ur Culture Indicated? Acetaminophen (10-30) ug/mL Ethyl Alcohol ( - 10) mg/dL Point of Care Testing Glucose POC 93 Urine Dip Bedside Urine Glucose 100 mg/dl Bedside Urine Bilirubin + 1 Bedside Urine Ketone - Negative Urine Specific [place] 1.025 Bedside Urine Occult Blood - Negative Bedside Urine pH 6.0 Bedside Urine Protein + 30 Bedside Urine Urobilinogen - Negative Bedside Urine Nitrite - Negative Bedside Urine Leukocytes + 70 Esterase Point of care testing: Point of Care Testing Glucose POC 93 Urine Dip Bedside Urine Glucose 100 mg/dl Bedside Urine Bilirubin + 1 Bedside Urine Ketone - Negative Urine Specific [place] 1.025 Bedside Urine Occult Blood - Negative Bedside Urine pH 6.0 Bedside Urine Protein + 30 Bedside Urine Urobilinogen - Negative Bedside Urine Nitrite - Negative Bedside Urine Leukocytes + 70 Esterase MDM Narrative Medical decision making narrative: Patient bladder scan upon arrival which showed greater than 500 cc of urine. A Vo was placed with only minimal return. It was then flushed and subsequently returned approximately 1200 cc of urine. Urinalysis is somewhat concerning for urinary tract infection. Patient states she has had multiple urinary tract infections in the past. Unsure if this is a colonization versus infection however given her confusion today will treated as an infection. Was given Rocephin IV. Patient also has a elevated ammonia level. After discussion with the family member at bedside it does appear that she has been more confused in worsening over the past couple days. This could potentially be related to her elevated ammonia were potentially the urinary tract infection. Patient is tolerating oral intake. Oral lactulose was ordered. Patient was confused about the year and the president however did know that she was in the hospital. Family member states she is normally alert and oriented without having any confusion. Patient did tell me that she self caths for urine at home. She states that she is at out of catheters. Family member at bedside stated that she has plenty of catheters at home. When asked the patient if she is cathing herself multiple times today she did admit that she was unsure if she was doing on a frequent basis. This potentially was the reason for her urinary retention. I do suspect that potentially the elevated ammonia level was leading to her becoming more confused which was leading to hurt not remembering the self catheterization as much as she should which led to the urinary retention could potentially be causing a urinary tract infection. I feel that the patient should be admitted to the hospital for further evaluation and treatment. I did discuss the case with LETI Walters the hospitalist who will accept for further evaluation and treatment. Discharge Plan Departure Patient Disposition: Admitted As Inpatient Clinical Impression: Acute hepatic encephalopathy, Acute urinary retention Hepatic cirrhosis Qualifiers: Hepatic cirrhosis type: unspecified hepatic cirrhosis Ascites presence: without ascites Qualified Code(s): K74.60 - Unspecified cirrhosis of liver Altered mental status Qualifiers: Altered mental status type: unspecified Qualified Code(s): R41.82 - Altered mental status, unspecified Urinary tract infection Qualifiers: Urinary tract infection type: acute cystitis Hematuria presence: without hematuria Qualified Code(s): N30.00 - Acute cystitis without hematuria Discharge Date/Time: 07/27/19 21:15 Admit Date/Time: 07/27/19 20:32 Admit Provider: Hailey Walters
[2019-07-27 18:21] LABS: Add Manual Diff / Slide Review NO; Basophils Absolute Auto 0 /uL (0-100); Basophils Percent Auto 0.9 % (0-2); Eosinophils Absolute Auto 100 /uL (0-450); Eosinophils Percent Auto 0.9 % (2-4); Hematocrit 38.7 % (36-46); Hemoglobin 13.1 g/dL (12.0-16.0); Lymphocytes Absolute Auto 2000 /uL (1100-4500); Lymphocytes Percent Auto 36.3 % (25-40); Mean Corpuscular HGB Conc 33.9 % (30-36); Mean Corpuscular Hemoglobin 33.3 PG (26-34); Mean Corpuscular Volume 98.1 fL (80-100); Monocytes Absolute Auto 600 /uL (0-900); Monocytes Percent Auto 10.5 % (3-14); Neutrophils Absolute Auto 2800 /uL (1500-7000); Neutrophils Percent Auto 51.4 % (50-75); Platelet Count 145 X10^3/uL (150-400); Red Blood Cell Count 3.94 X10^6/uL (4.0-5.2); Red Cell Distribution Width 16.1 % (11.6-14.8); White Blood Cell Count 5.4 X10^3/uL (4.5-11.0)
[2019-07-27 18:30] VITALS: BP 156/68; PULSE 93; RESP 18; O2SAT 98
[2019-07-27 18:30] LABS: INR 1.4 (0.9-1.3); Prothrombin Time 16.2 SECONDS (10.1-12.7)
[2019-07-27 18:32] LABS: Ammonia (NH3) 56 umol/L (9-30)
[2019-07-27 18:33] LABS: Alanine Aminotransferase 29 IU/L (<35); Albumin 3.6 g/dL (3.5-5.0); Albumin Globulin Ratio 0.9 (1.0-2.8); Alkaline Phosphatase 190 U/L (38-126); Aspartate Aminotransferase 47 IU/L (14-36); BUN Creatinine Ratio 27.1 (6-22); Bilirubin Total 1.3 mg/dL (0.2-1.3); Blood Urea Nitrogen 13 mg/dL (7-17); Calcium 9.5 mg/dL (8.4-10.2); Carbon Dioxide 20 mmol/L (22-32); Chloride 112 mmol/L (98-107); Estimated Glomerular Filt Rate > 60.0 mL/min (>60); Glucose 95 mg/dL (80-110); HEMOLYSIS < 15 (0-50); PTT Partial Thromboplastin Tim 43 SECONDS (26.4-36.2); Potassium 4.1 mmol/L (3.4-5.1); Sodium 140 mmol/L (137-145); Total Protein 7.6 g/dL (6.3-8.2)
[2019-07-27 18:35] LABS: Calcium Oxalate Crystals Urine Moderate; RBC Urine 1-5/HPF (0-5/HPF); WBC Urine 30-100/HPF (0-5/HPF)
[2019-07-27 18:36] LABS: Bacteria Urine Many (>30); Culture Indicated Urine Specimen Cultured; Mucus Urine 3+ (Negative)
[2019-07-27 18:41] LABS: Acetaminophen < 10 ug/mL (10-30); Ethanol (ETOH) < 10 mg/dL; Lipase 146 U/L (23-300)
[2019-07-27 18:43] VITALS: TEMP 36.8
[2019-07-27 18:56] LABS: Lactate (Lactic Acid) 1.3 mmol/L (0.7-2.1)
--- NOTE | 2019-07-27 19:07 | PC.NURSE ---
Catheter flushed, now draining freely.
[2019-07-27 20:18] VITALS: BP 123/60; PULSE 100; O2SAT 98
[2019-07-27] MEDS: LACTULOSE 20 GM/30 ML SOLUTION PO (20:18)
[2019-07-27 21:20] VITALS: BP 119/76; PULSE 97; RESP 18; TEMP 36.6; O2SAT 99
[2019-07-27] MEDS: CEFTRIAXONE 1 GM/50 ML FROZ.PIGGY IV (21:35)
[2019-07-27 22:29] VITALS: BMI 16.0
--- NOTE | 2019-07-27 22:38 | P.HP_ITS ---
History of Present Illness History of Present Illness Date Patient Seen: 07/27/19 Time Patient Seen: 21:30 Chief complaint: cold,confusion,states ammonia build up Narrative: Marisol Thompson is a 59-year-old female with a history hepatitis C and hepatic cirrhosis, paraplegia, status self catheterization of her urinary bladder presented today with altered mental state. Son is in the room with her to provide some history. Patient does not really provide history only answers questions. When asked if she had been taking her lactulose she states that she has been however her son states that she forgets to take her lactulose and has enough lactulose at home that was prescribed for her since April. He states that she has been quite weak. Patient also states that she self catheterizes but is unable to tell me how often she does this. Patient denies fevers sweats or chills, shortness of breath, chest pain, abdominal pain, dysuria, diarrhea or constipation. She states she has a bowel movement about 1-2 times a day. She sees a centrifugal separator in [place] and states that they told her she did need to take lactulose. Patient presents is afebrile, elevated transaminases and her ammonia was 56 on admission. She did also have significant bacteria and crystals in her urine with negative acetaminophen or alcohol on board. Patient History Medical History (Updated 07/27/19 @ 22:39 by CHICA Mcwilliams) Acute hepatic encephalopathy (Acute) Altered mental status (Acute) Hepatic cirrhosis (Acute) Hepatitis C (Acute) Paraplegia (Acute) Self-catheterizes urinary bladder (Acute) Smoker (Acute) Wheelchair bound (Acute) Surgical History Status post colonoscopy Status post eye surgery Status post hysterectomy Family & Social History Family History Brother Age: 63 Blind Grandmother Age: 100 Pancreatic cancer Social History: household members children Safety & Behavioral: Feels Safe in Current Yes Environment Been Physically Hurt or No Threatened By a Person Tobacco & Substance use: Smoking Status Current every day smoker alcohol intake frequency 0-2 drinks per day, she denies consumption to me Substance Use Type marijuana Meds Home Medications and Allergies Home Medications Medication Instructions Recorded Confirmed Type [id number]-[id number] 1 tab PO DAILY PRN 12/01/18 07/27/19 History omeprazole 20 mg PO QAM 12/01/18 05/25/19 History Mavyret 3 tab PO QPM 05/25/19 05/25/19 History furosemide 20 mg PO DAILY 30 Days #30 tab 05/26/19 07/27/19 Rx lactulose 20 gm PO BID 30 Days #1800 ml 05/26/19 Rx spironolactone 50 mg PO DAILY 30 Days #30 tab 05/26/19 07/27/19 Rx Allergies Allergy/AdvReac Type Severity Reaction Status Date / Time No Known Drug Allergies Allergy Verified 07/27/19 17:13 Review of Systems Review of Systems ROS: Yes All systems reviewed with the patient and are negative except as otherwise documented Exam Vital Signs (past 8 hours): - 07/27/19 18:00 07/27/19 18:30 07/27/19 18:43 Temperature 98.2 F Pulse Rate 91 H 93 H Respiratory Rate 18 18 Blood Pressure Blood Pressure [Right Arm] 113/57 L 156/68 H Pulse Oximetry 99 98 07/27/19 20:18 07/27/19 21:20 Temperature 98 F Pulse Rate 100 H 97 H Respiratory Rate 18 Blood Pressure 119/76 Blood Pressure [Right Arm] 123/60 Pulse Oximetry 98 99 Oxygen Delivery Method Room Air Oxygen Flow Rate 0 Narrative Exam Narrative: Gen: Alert, oriented, ill-appearing 59 y.o. female, a bit lethargic HEENT: normocephalic, atraumatic, conjunctiva clear, sclera non-icteric, oral mucosa pink and moist Neck: supple, full ROM, no JVD Resp: Lungs CTA, non-labored breathing CV: RRR, no murmur or rubs Abd: soft, non-tender, normoactive BTs Skin: Active wound on lower right lateral leg not draining, indurated approximately 6 cm diameter. 3 bilateral buttock and sacral wounds that appear to be healing. Neuro: Alert and oriented X 2-3, appears to be mildly impaired Extremities: moves upper extremities, legs are contracted at knees, is parape legic Psyche: lethargic Objective Labs Result Diagrams: 07/27/19 18:13 07/27/19 18:13 Labs: Laboratory Results - last 24 hr 07/27/19 07/27/19 07/27/19 18:02 18:13 18:13 WBC 5.4 RBC 3.94 L Hgb 13.1 Hct 38.7 MCV 98.1 MCH 33.3 MCHC 33.9 RDW 16.1 H Plt Count 145 L Neut % (Auto) 51.4 Lymph % (Auto) 36.3 [place] % (Auto) 10.5 Eos % (Auto) 0.9 L Baso % (Auto) 0.9 Neut # (Auto) 2800 Lymph # (Auto) 2000 [place] # (Auto) 600 Eos # (Auto) 100 Baso # (Auto) 0 PT INR APTT Sodium Potassium Chloride Carbon Dioxide BUN Creatinine Estimated GFR BUN/Creatinine Ratio Glucose Lactate Calcium Total Bilirubin AST ALT Alkaline Phosphatase Ammonia 56 H Total Protein Albumin Globulin Albumin/Globulin Ratio Lipase Urine RBC 1-5/hpf Urine WBC 30-100/hpf H Calcium Oxalate Crystal Moderate H Urine Bacteria Many (>30) H Urine Mucus 3+ H Ur Culture Indicated? Specimen cultured Acetaminophen Ethyl Alcohol 07/27/19 07/27/19 07/27/19 18:13 18:13 18:13 WBC RBC Hgb Hct MCV MCH MCHC RDW Plt Count Neut % (Auto) Lymph % (Auto) [place] % (Auto) Eos % (Auto) Baso % (Auto) Neut # (Auto) Lymph # (Auto) [place] # (Auto) Eos # (Auto) Baso # (Auto) PT 16.2 H INR 1.4 H APTT 43 H Sodium 140 Potassium 4.1 Chloride 112 H Carbon Dioxide 20 L BUN 13 Creatinine 0.48 L Estimated GFR > 60.0 BUN/Creatinine Ratio 27.1 H Glucose 95 Lactate Calcium 9.5 Total Bilirubin 1.3 AST 47 H ALT 29 Alkaline Phosphatase 190 H Ammonia Total Protein 7.6 Albumin 3.6 Globulin 4.0 Albumin/Globulin Ratio 0.9 L Lipase Urine RBC Urine WBC Calcium Oxalate Crystal Urine Bacteria Urine Mucus Ur Culture Indicated? Acetaminophen < 10 L Ethyl Alcohol < 10 07/27/19 07/27/19 18:13 18:38 WBC RBC Hgb Hct MCV MCH MCHC RDW Plt Count Neut % (Auto) Lymph % (Auto) [place] % (Auto) Eos % (Auto) Baso % (Auto) Neut # (Auto) Lymph # (Auto) [place] # (Auto) Eos # (Auto) Baso # (Auto) PT INR APTT Sodium Potassium Chloride Carbon Dioxide BUN Creatinine Estimated GFR BUN/Creatinine Ratio Glucose Lactate 1.3 Calcium Total Bilirubin AST ALT Alkaline Phosphatase Ammonia Total Protein Albumin Globulin Albumin/Globulin Ratio Lipase 146 Urine RBC Urine WBC Calcium Oxalate Crystal Urine Bacteria Urine Mucus Ur Culture Indicated? Acetaminophen Ethyl Alcohol Assessment & Plan Assessment & Plan narrative: Marisol Thompson is admitted for hepatic encephalopathy and a catheter associated urinary tract infection. Toxic metabolic encephalopathy, acute, present on admission - likely hepatic encephalopathy based on initial lab findings including elevated ammonia and imaging suggesting cirrhosis. Other possibiilties include medication (urine drug screen + for opiates) -Ammonia was elevated at 56 -she will ordered for lactulose 20 g p.o. q.i.d., titrate so that she has 3-5 bowel movements/day -follow daily liver enzymes and ammonia level Catheter associated urinary tract infection -patient unable to provide a history of how often she self catheterizes. -UA indicated large amounts of bacteria, oxalate crystals, cultures pending -UA culture performed in May of this year grew out E coli and was sensitive to ceftriaxone -she is started on IV ceftriaxone 1 g daily Hep C cirrhosis, chronic, active -continue home Mavyret, this will need to brought from home -CT findings in May indicated with ascites on imaging, will repeat History of recent GI bleeding - s/p endoscopy at [facility] which showed duodenal erosions. -continue home omeprazole History of paraplegia with sacral and right buttock pressure wounds -Wound care consult for right lower leg -buttock and sacral wounds appear to be healing or healed but require daily monitoring. Consults: Wound care consult and involvement is appreciated. Patient is placed into an inpatient bed. Stay is likely to exceed 2 midnights. FEN: NS at 75 ml/hour, regular diet, C/MP in the am. VTE prophylaxis: heparin 5000 units subQ daily Dispo: probable discharge to home Code Status: as discussed with patient
[2019-07-27] MEDS: SODIUM CHLORIDE 0.45% 1,000 ML 75 ML IV (23:01)
--- NOTE | 2019-07-27 23:03 | PC.ADMIT ---
Pt to AC from ER. Transferred via stretcher, slider board to bed. Pt is wheelchair bound. Reports 9/10 headache. Drowsy/intermittently confused. Had difficulty remembering meds. Two Rx bottles in night pharmacy. Belongings placed in safe as well. IV fluids started per order. Pt oriented to room/call light use. Will need reinforcement. [id number] Admission Note: The patient,Marisol Thompson,59 y/o, was given written information regarding hospital policies, unit procedures and contact persons. Patient's smoking status: Current every day smoker. Vital Signs - 8 hr 07/27/19 18:00 07/27/19 18:30 07/27/19 18:43 Temperature 98.2 F Pulse Rate 91 H 93 H Respiratory Rate 18 18 Blood Pressure Blood Pressure [Right Arm] 113/57 L 156/68 H Pulse Oximetry 99 98 07/27/19 20:18 07/27/19 21:20 Temperature 98 F Pulse Rate 100 H 97 H Respiratory Rate 18 Blood Pressure 119/76 Blood Pressure [Right Arm] 123/60 Pulse Oximetry 98 99
[2019-07-28 01:18] VITALS: BP 133/97; PULSE 98; RESP 17; TEMP 37.2; O2SAT 99
[2019-07-28] MEDS: BUTALB/APAP/CAFFEINE 50/325/40 TABLET 1 EACH PO (02:18)
[2019-07-28 05:16] LABS: RBC Urine None Seen (0-5/HPF)
[2019-07-28 05:39] LABS: Bacteria Urine Many (>30); WBC Urine 0-1/HPF (0-5/HPF)
[2019-07-28 05:40] LABS: Calcium Oxalate Crystals Urine Moderate; Culture Indicated Urine Specimen Cultured
[2019-07-28 05:41] LABS: Add Manual Diff / Slide Review NO; Basophils Absolute Auto 0 /uL (0-100); Basophils Percent Auto 0.8 % (0-2); Eosinophils Absolute Auto 100 /uL (0-450); Eosinophils Percent Auto 0.9 % (2-4); Hemoglobin 11.6 g/dL (12.0-16.0); Lymphocytes Absolute Auto 3100 /uL (1100-4500); Lymphocytes Percent Auto 50.5 % (25-40); Mean Corpuscular Hemoglobin 32.6 PG (26-34); Mean Corpuscular Volume 98.7 fL (80-100); Monocytes Absolute Auto 800 /uL (0-900); Monocytes Percent Auto 13.3 % (3-14); Neutrophils Absolute Auto 2100 /uL (1500-7000); Neutrophils Percent Auto 34.5 % (50-75); Platelet Count 142 X10^3/uL (150-400); Red Blood Cell Count 3.55 X10^6/uL (4.0-5.2); Red Cell Distribution Width 15.5 % (11.6-14.8); White Blood Cell Count 6.2 X10^3/uL (4.5-11.0)
[2019-07-28 05:46] LABS: Alanine Aminotransferase 26 IU/L (<35); Albumin 3.1 g/dL (3.5-5.0); Albumin Globulin Ratio 0.9 (1.0-2.8); Alkaline Phosphatase 133 U/L (38-126); Aspartate Aminotransferase 41 IU/L (14-36); Bilirubin Total 1.1 mg/dL (0.2-1.3); Blood Urea Nitrogen 13 mg/dL (7-17); Calcium 8.7 mg/dL (8.4-10.2); Carbon Dioxide 21 mmol/L (22-32); Chloride 111 mmol/L (98-107); Estimated Glomerular Filt Rate > 60.0 mL/min (>60); Globulin 3.5 g/dL (1.7-4.1); Glucose 80 mg/dL (80-110); HEMOLYSIS < 15 (0-50); Potassium 3.7 mmol/L (3.4-5.1); Sodium 138 mmol/L (137-145); Total Protein 6.6 g/dL (6.3-8.2)
[2019-07-28] MEDS: PANTOPRAZOLE 20 MG TABLET PO (06:06)
--- NOTE | 2019-07-28 06:47 | PC.NURSE ---
Patient is still confused on this shift, but was able to answer questions and is AxOx3. Patient has had large ammts. of sediment in urine on this shift and was having low output from colon catheter. Flushed with sterile saline at 0500, and then patient had 365cc out.
--- NOTE | 2019-07-28 08:00 | DI.CT.S_ITS ---
PROCEDURE: CT ABDOMEN PELVIS WO CON INDICATIONS: Liver cirrhosis TECHNIQUE: Noncontrast 5 mm thick sections acquired from the diaphragms to the symphysis. 5 mm coronal and sagittal reformats were then performed. For radiation dose reduction, the following was used: automated exposure control, adjustment of mA and/or kV according to patient size. COMPARISON: [facility], CT, CT ABDOMEN PELVIS W CON, 12/01/2018, 19:07. [facility], CT, CT ABDOMEN PELVIS W CON, 05/25/2019, 12:14. FINDINGS: Image quality: There is streak artifact associated with the metallic hardware. ABDOMEN: Lung bases: Mild emphysematous changes can be seen at the lung bases. Heart size is normal. Mammoplasty implants are incidentally noted. Solid organs: Liver demonstrates a nodular appearance, which is consistent with the given history. To the limits this noncontrast CT, no focal liver masses are seen. Gallbladder demonstrates no significant CT abnormality. Pancreas is normal in contours. Spleen is normal in size. No adrenal nodules. Kidneys are normal in size, without hydronephrosis or nephrolithiasis. Peritoneum and bowel: Unenhanced bowel loops demonstrate normal wall thickness and caliber. No free fluid or air. A colonic anastomotic staple line can be seen. Nodes and vessels: No retroperitoneal or mesenteric adenopathy by size criteria. Aorta and inferior vena cava are normal in caliber. Atherosclerotic calcification is noted. Miscellaneous: No ventral hernias. PELVIS: Genitourinary: A Vo catheter is seen. Miscellaneous: No inguinal hernias or adenopathy. Posterior perineal inflammatory changes are seen. Bones: Lower thoracic spine fixation hardware is seen, with associated streak artifact. No suspicious bony lesions. Mild anterior wedge deformity can be seen involving the T12 level. IMPRESSION: Cirrhotic liver, without focal masses the noncontrast CT. Focal inflammatory change is seen involving the posterior peritoneum. This is similar to the prior examination. A decubitus ulcer is suspected. Incidental note is made of: Mammoplasty implants Emphysematous change Lower thoracic fixation hardware T12 anterior wedge deformity Colonic anastomotic staple line Vo catheter Dictated by: Neptali Sher M.D. on 07/28/2019 at 8:09 Approved by: Neptali Sher M.D. on 07/28/2019 at 8:14
[2019-07-28 09:00] VITALS: BP 130/83; PULSE 96; RESP 18; TEMP 37.2; O2SAT 98
[2019-07-28] MEDS: FUROSEMIDE 20 MG TABLET PO (09:42)
[2019-07-28] MEDS: LACTULOSE 20 GM/30 ML SOLUTION PO (09:43)
[2019-07-28] MEDS: SPIRONOLACTONE 50 MG TABLET PO (09:49)
[2019-07-28 11:33] VITALS: BMI 16.0
--- NOTE | 2019-07-28 11:43 | DIET.PN ---
Addendum entered by July Price 07/28/19 14:45: spoke c pt and pts son before d/c regarding nutrition reccs. Pt reports she has had a lot of diarrhea lately and has been trying not to eat after dinner, both likely contributing to PCM. Supplied pt coupons for Ensure. Original Note: Dietary Progress Note Assessment: 59y paraplegic F admitted for confusion, elevated ammonia secondary to cirrhosis, and UTI referred to nutrition as high risk for malnutrition and skin breakdown. Pt reports no wt loss but [facility] records indicate 12% wt loss in 2 mo (severe) c associated BMI of 16.0 (severe). Pt and son report to physician pt forgets to take medications. Pt was sleeping when this RD visited, will attempt interview this afternoon if pt less confused or son present to get food intake hx. HT: 172.7cm WT: 47.6kg UBW: 54kg (per [facility] records on 05/26/2019) BMI: 16.0 severe for age Labs: alk phos 133 H, ammonia 56 H MNA: 8 malnourished Renato: 13 high risk for skin breakdown Nutrition Diagnosis: Acute on Chronic PCM r/t advancement of liver dz (cirrhosis) and difficulty c self management of dz complicated by paraplegia aeb pt has 12% unintentional wt loss in 2 mo (severe), BMI 16.0 (severe), pt reports forgetting to take lactulose c admit ammonia 56 H. Interventions: 1. Recc low sodium diet 2. Recc considering Tunica 3 and zinc supps per cirrhosis MNT. Tunica 3 may reduce inflammatory processes and cirrhosis associated c high zinc losses and high risk for zinc deficiency which may complicate wound healing and reduce immune fxn. 3. Recc implementing substantial bedtime snack of 700kcal and 25g PRO to reduce nightly catabolism as liver unable to store enough glycogen to support overnight fast. Consider an Ensure Enlive or full-fat yogurt c half sandwich. Diet Order: General EER: 1500kcal, 62g PRO (1.3g/kg per malnutrition), 1.5 L fluids Monitoring/Evaluations:
--- NOTE | 2019-07-28 12:47 | CM.DANOTE ---
Addendum entered by LIBAN Nova 07/28/19 14:49: ADD: No return call from [place], therefore SW called [facility] and confirmed they can accept [employer] insurance and faxed referral along with signed F2F, MD orders, and d/c summary. DG confirmed PCP Dr. Krishan Cali in [place] via bedside with pt and she confirms that she is very agreeable to d/c home today and son is on his way to provide transport. Plan: Patient to d/c home via son POV today and [facility] to open pt to service. LIBAN Nova Addendum entered by LIBAN Nova 07/28/19 13:10: ADD: Per MD, pt medically stable to d/c home later today and agreeable with HH and signed the F2F. BF Original Note: Patient is a 59 year old female who was admitted on 07/27/19 for Confusion, Ammonia build up. Pt has [employer] [place] and [facility] for insurance and her PCP is not listed. EMR was reviewed. Per , pt with a hx of Hep C and is paraplegic and w/c bound at baseline and admitted for Hepatic encephalopathy and UTI. Wound Care Consult ordered for sacral pressure wound. Pt currently on IV-Abx and somewhat confused and MD feels pt likely can d/c home with oral medications tonight or tomorrow pending her progress. DG called pt's son Warren and explained role and he confirms that he lives in [place] with the pt and he is her primary caregiver. Pt is mostly independent with ADL's but he provides transport and accompanies pt to her appointments. He denies any other services in place and does not think pt has any hx of HH or SNF and states she is quite stubborn and needs extra encouragement to follow through with some recommendations that she doesn't want to do. Son states his preference is for pt to return home when stable and he can provide transport at d/c and he is requesting HH RN/PT/[facility] [employer] since pt was below her baseline. Pt has not completed any DPOA pwk at this time but SW encouraged son to talk with pt about this for future needs. DG provided HH Choice List via phone and he has no preference so [facility] Vendor Calendar and faxed clinicals and left ms requesting review and to confirm they are contracted with [facility]. Plan: SW to follow for [facility] review and call back to confirm they are contracted with [facility] towards plan of d/c home with son when stable. LIBAN Nova Discharge Planning/Care Management CM Discharge Assessment Start: 07/28/19 12:45 Freq: Status: Active Protocol: Document 07/28/19 12:45 BF (Rec: 07/28/19 12:47 BF [id number]) Discharge Planning Assessment Assigned Curing Pickling Packer LIBAN Shah DPOA/Assigned Designee Name none Advance Directives? No Advance Directives on File No History Provided By Patient,Family Member,Medical Record Has Patient been admitted in last 30 No days? Prior Living Arrangements House Household Members children Type of transporation used prior to Relies on Others admit Independent with ADL's Yes: mostly Is patient alert and oriented? Yes: currently confused Needs Assistance With Home Chores / Shopping Caregiver for Another No DME Already Rented / Owned Bath Bench,Wheelchair Patient/Family Preference Home with Home Health Barriers to Discharge No Discharge Plan Home with Home Health Community Services Physical Therapy,Home Health Aid,Home Health Nurse Transportation Arrangement Son Warren states he can provide transport at d/c Referrals Initiated Home Health Additional Comment [facility] based on Vendor Calendar Medicare Choice List Provided Yes SNF/HH Preference [facility] based on Vendor Calendar Review Status In Process Please Provide Date Initial DC 07/28/19 Assessment Was Performed Next Review Type Continued Stay Review
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
--- NOTE | 2019-07-28 14:54 | PC.NURSE ---
Discharge: Pt feels ready to d/c home. D/c instructions reviewed. Remains sl confused at times but is less sleepy this afternoon. Discussed importance of taking her lactulose, it is not for constipation but for her liver and she and her son state understanding. Reviewed rest of packet. Questions answered. D/c home via auto w/son.
--- NOTE | 2019-08-08 13:55 | PC.NURSE ---
Late entry: Rocephin stopped 07/27/2019 2205 NS stopped 07/28/2019 1400
== END 2019-07-28 14:45 | disposition home health service (06) | DRG 279 ==
LOC: ED 20:08 → AC 07-28 08:14
PROVIDERS: Emergency Medicine; Admitting Provider Nurse Practitioner Family; Emergency Provider Emergency Medicine; Referring Provider Emergency Medicine; Visit Provider Nurse Practitioner Family
DX: G92 Toxic encephalopathy (principal); R41.82 Altered mental status, unspecified; N30.00 Acute cystitis without hematuria; K74.69 Other cirrhosis of liver; B19.20 Unspecified viral hepatitis C without hepatic coma; E46 Unspecified protein-calorie malnutrition; R33.9 Retention of urine, unspecified; T83.518A Infection and inflammatory reaction due to other urinary catheter, initial encounter; K72.00 Acute and subacute hepatic failure without coma; L89.319 Pressure ulcer of right buttock, unspecified stage; L89.159 Pressure ulcer of sacral region, unspecified stage; L89.329 Pressure ulcer of left buttock, unspecified stage; G82.20 Paraplegia, unspecified; L89.899 Pressure ulcer of other site, unspecified stage; K26.9 Duodenal ulcer, unspecified as acute or chronic, without hemorrhage or perforation; F17.210 Nicotine dependence, cigarettes, uncomplicated; Z68.1 Body mass index [BMI] 19.9 or less, adult
CPT/HCPCS: 36415; 51701; 51798; 74176; 80053; 80320; 80329; 81003; 81015; 82140; 82962; 83605; 83690; 85025; 85610; 85730; 87077; 87086; 87186; 96361; 96365; 99285; G0378; G0480; J7050

== ENCOUNTER 2019-07-29 11:15 | Emergency (ER) | payer OTHER, MEDICAID, SELFPAY ==
[2019-07-29 11:23] VITALS: BP 117/59; PULSE 86; RESP 18; TEMP 36.9; O2SAT 97
--- NOTE | 2019-07-29 12:11 | ED_ITS ---
HPI - Dental/Oral <CHICA Prasad - Last Filed: 07/29/19 12:22> General Chief complaint: Dental/Oral Stated complaint: Bad toothache Time Seen by Provider: 07/29/19 11:28 Source: patient Mode of arrival: Wheelchair Limitations: physical limitation History of Present Illness HPI Narrative: This is a 59-year-old female, smoker, who presents to ED with right lower tooth pain. Patient has history of hepatitis-C, chronic liver disease, GI bleed, paraplegic from spinal cord injury, frequent UTI. Patient was hospitalized last few days and discharged to home yesterday and states she is currently taking cefpodoxime for UTI which she has 2 more doses to complete. Patient had taken Fioricet for headache this morning which is not effective managing her pain. Patient states she is not able to take Vicodin, ibuprofen but is able to take Percocet for pain. Patient denies fever, chills, nausea or vomiting or purulent discharge from her tooth. Patient states she has history of periodontal disease and gingivitis. Patient reports has been having toothaches in the past and is usually from left lower tooth but today she feels pain in the right side. Patient does not have a dentist currently but is working on to set up a dentist. Related Data Home Medications Medication Instructions Recorded Confirmed [id number] 1 tab PO DAILY PRN 12/01/18 07/27/19 omeprazole 20 mg PO QAM 12/01/18 05/25/19 Mavyret 3 tab PO QPM 05/25/19 05/25/19 Previous Rx's Medication Instructions Recorded furosemide 20 mg PO DAILY 30 Days #30 tab 05/26/19 lactulose 20 gm PO BID 30 Days #1800 ml 05/26/19 spironolactone 50 mg PO DAILY 30 Days #30 tab 05/26/19 cefpodoxime 200 mg PO BID 2 Days #4 tab 07/28/19 amoxicillin-pot clavulanate 1 tab PO BID 7 Days #14 tab 07/29/19 [Augmentin] chlorhexidine gluconate [Paroex 15 ml BUCCAL BID #473 ml 07/29/19 Oral Rinse] tramadol 50 - 100 mg PO Q12H PRN #10 tab 07/29/19 Allergies Allergy/AdvReac Type Severity Reaction Status Date / Time No Known Drug Allergies Allergy Verified 07/27/19 17:13 Review of Systems <CHICA Prasad - Last Filed: 07/29/19 12:22> Review of Systems Narrative: General: Denies fever, chills, fatigue, malaise, sweats. HEENT: See HPI Respiratory: Denies dyspnea, cough, wheezing, hemoptysis, sputum. Cardiovascular: Denies chest pain, palpitations, orthopnea, edema. Gastrointestinal: Denies nausea, vomiting, abdominal pain, diarrhea, constipation, melena. : Denies dysuria, frequency, incontinence, hematuria, urinary retention. Neurologic: Denies weakness, headache, numbness, change in speech, confusion, seizures, incoordination. Psychiatric: No concerning psychosocial issues. Patient History <CHICA Prasad - Last Filed: 07/29/19 12:22> Medical History Acute hepatic encephalopathy (Acute) Altered mental status (Acute) Hepatic cirrhosis (Acute) Hepatitis C (Acute) Paraplegia (Acute) Self-catheterizes urinary bladder (Acute) Smoker (Acute) Wheelchair bound (Acute) Surgical History Status post colonoscopy Status post eye surgery Status post hysterectomy Family History Brother Age: 63 Blind Grandmother Age: 100 Pancreatic cancer Social History household members: children Smoking Status: Current every day smoker alcohol intake: current Smoking Status: Current every day smoker alcohol intake frequency: 0-2 drinks per day Substance Use Type: marijuana Exam <CHICA Prasad - Last Filed: 07/29/19 12:22> Narrative Exam Narrative: General appearance: well developed, thin appearing, in no acute distress. Head: normocephalic, atraumatic, no scalp lesions, non-tender. ENT: Hearing grossly intact. Nose without bleeding, purulent discharge. Facial sinuses nontender to palpate. Mucous membrane moist, no mucosal lesion. Throat without erythema, tonsillar hypertrophy or exudate. Uvula in midline, airway patent. Neck/Thyroid: neck supple, full range of motion, no visible masses or meningeal signs. No JVD, non-tender without lymphadenopathy. Skin: no suspicious rashes, lesions over visible areas. Warm and dry and appropriate color for ethnicity. Heart: no clubbing, no cyanosis, no edema. Lungs: Breathing even and unlabored. No stridor. No accessory muscles used. Able to speak in full sentences. Chest: normal shape and expansion. Abdomen: non-obese, non-distended. Neurologic: alert and oriented. Cognitive exam, [employer] and PNS grossly intact on informal exam. Psych: good eye contact, normal affect. Initial Vital Signs Initial Vital Signs: Vital Signs Temperature 98.5 F 07/29/19 11:23 Pulse Rate 86 07/29/19 11:23 Respiratory Rate 18 07/29/19 11:23 Blood Pressure 117/59 L 07/29/19 11:23 Pulse Oximetry 97 07/29/19 11:23 HENMT Teeth and gingiva: abnormal tooth or associated gingiva, caries (47, 46, 45 (right lower three teeth) and 37 (left lower tooth)), gingiva abnormal and poor dentition <Jama Melton MD - Last Filed: 08/01/19 07:46> Initial Vital Signs Initial Vital Signs: Vital Signs Temperature 98.5 F 07/29/19 11:23 Pulse Rate 86 07/29/19 11:23 Respiratory Rate 18 07/29/19 11:23 Blood Pressure 117/59 L 07/29/19 11:23 Pulse Oximetry 97 07/29/19 11:23 Scores <CHICA Prasad - Last Filed: 07/29/19 12:22> GCS [place] coma scale eye opening: Spontaneous Herminia coma scale verbal response: Orientated Herminia coma scale motor response: Obey commands Herminia coma scale total score: 15 Course <CHICA Prasad - Last Filed: 07/29/19 12:22> Vital Signs Vital signs: Vital Signs - 8 hr 07/29/19 11:23 Temperature 98.5 F Pulse Rate 86 Respiratory Rate 18 Blood Pressure 117/59 L Pulse Oximetry 97 <Jama Melton MD - Last Filed: 08/01/19 07:46> Vital Signs Vital signs: Vital Signs - 8 hr 07/29/19 11:23 Temperature 98.5 F Pulse Rate 86 Respiratory Rate 18 Blood Pressure 117/59 L Pulse Oximetry 97 MDM - Dental/Oral <Garrett WhitakerCHICA - Last Filed: 07/29/19 12:22> Differential Diagnosis Differential diagnosis: Likely gingival abscess, dental caries, toothache and dental abscess Medical Records Attestation: I reviewed the patient's medical records. [facility] Narrative Medical decision making narrative: This is a 59-year-old female who presents to ED with dental pain on right lower to without fever, chills, nausea or vomiting. Patient has history of periodontal disease and gingivitis but does not have dentist set up at this time. Patient has history of hepatitis C and hepatic cirrhosis, GI bleed. Patient was discharged to home from [facility] yesterday with altered mental status and urinary tract infection. Patient had taken Fioricet that she has for headache this morning with minimal improvement in discomfort. Given patient's history of chronic liver disease and GI bleed, patient is not suggested to take [id number] Tylenol and or Motrin products. Patient is requesting Percocet but advised to take tramadol which has less interaction with her chronic disease for pain management. Patient has started on Augmentin b.i.d. dose for 7 days for dental infection and chlorhexidine mouth rinses for gingivitis. Patient advised to follow-up with the dentist and return precautions were discussed with patient. Critical Care Time <Garrett ArmstrongNeilCHICA Barba - Last Filed: 07/29/19 12:22> Critical Care Time Critical Care Time: No Discharge Plan Departure Patient Disposition: Home Clinical Impression: Dental caries, Toothache Discharge Date/Time: 07/29/19 12:42 Instructions: DI for Tooth Decay, DI for Dental Pain Activity Restrictions/Additional Instructions: You have been diagnosed with [dental caries and pain. History of gingivitis and periodontal disease.]. What to do: *Take your medications as directed. Please take Augmentin 1 tab every 12 hours for next 7 days for dental infection and rinse her mouth with chlorhexidine gluconate twice a day. Tramadol medication has been ordered for pain management. Please take half tab to 1 tab as needed every 12 hours for severe pain. I believe Tylenol products and Motrin products interferes with your medical conditions such as hepatitis C and chronic liver disease, GI bleed. Tramadol, Augmentin, chlorhexidine gluconate rinses have been transmitted to [facility] in [place]. *Follow up with your primary care provider in 2-3 days and dentist, call for an appointment. You can contact [facility] and dental school as well if you do not have dental insurance. Let them know you were seen in the ED and that we asked you to be seen in follow up. *Return to ED if you have any new, worsening, or concerning symptoms, such as [fever, chills, chest pain, breathing difficulty, unable to tolerate fluids, increasing pain/redness/swelling to face or any acute concerns]. Prescriptions: New amoxicillin-pot clavulanate [Augmentin] 875-125 mg tablet 1 tab PO BID 7 Days Qty: 14 RF: 0 chlorhexidine gluconate [Paroex Oral Rinse] 0.12 % mouthwash 15 ml BUCCAL BID Qty: 473 RF: 0 tramadol 100 mg tablet 50 - 100 mg PO Q12H PRN (Reason: pain) Qty: 10 RF: 0 No Action [id number]-nwzanbvabbifj-[id number] 50-325-40 mg tablet 1 tab PO DAILY PRN (Reason: pain) RF: 0 omeprazole 20 mg capsule,delayed release(DR/EC) 20 mg PO QAM RF: 0 Mavyret 100-40 mg tablet 3 tab PO QPM RF: 0 furosemide 20 mg Tablet 20 mg PO DAILY 30 Days Qty: 30 RF: 0 spironolactone 50 mg Tablet 50 mg PO DAILY 30 Days Qty: 30 RF: 0 lactulose 20 gram/30 mL Solution 20 gm PO BID 30 Days Qty: 1800 RF: 0 cefpodoxime 200 mg tablet 200 mg PO BID 2 Days Qty: 4 RF: 0 Referrals: Frances Savage FNP-C [Non-Staff] -
== END 2019-07-29 12:42 | disposition home or self-care (01) ==
PROVIDERS: Emergency Provider Nurse Practitioner Family
DX: K08.89 Other specified disorders of teeth and supporting structures (principal); K02.9 Dental caries, unspecified
CPT/HCPCS: 99281

== ENCOUNTER → 2019-11-01 14:52 | Outpatient (CLI) | payer OTHER, MEDICAID, SELFPAY | PROVIDERS: PCP Nurse Practitioner; Referring Provider Nurse Practitioner; Visit Provider Family Medicine | DX: L08.9 Local infection of the skin and subcutaneous tissue, unspecified (principal); M16.0 Bilateral primary osteoarthritis of hip; M85.88 Other specified disorders of bone density and structure, other site; L89.154 Pressure ulcer of sacral region, stage 4 | CPT/HCPCS: 11043; 11046; 36415; 72170; 72220; 80053; 84134; 85025; 85651; 86140; 87070; 87075; 87077; 87186; 87205; 99203; 99213 ==

== ENCOUNTER → 2019-11-01 15:42 | Outpatient (CLI) | payer OTHER, MEDICAID, SELFPAY ==
--- NOTE | 2019-11-01 | DI.RAD.S_ITS ---
PROCEDURE: XR SACRUM COCCYX MIN 2V INDICATIONS: PRESSURE INJURY/OSTEOMYELITIS TECHNIQUE: 3 views of the sacrum and coccyx acquired. COMPARISON: [facility], CR, XR PELVIS 1-2V, 11/01/2019, 15:46. FINDINGS: Bones: No fractures or dislocations. No suspicious bony lesions. Diffuse osteopenia . Suboptimal evaluation due to difficulty with patient positioning. Soft tissues: Visualized bowel gas pattern is normal. No suspicious soft tissue densities. IMPRESSION: No focal osseous destruction to suggest advanced osteomyelitis. If there is persistent clinical concern, continued short interval radiographic followup or contrast enhanced MRI could be performed to assess for early infection. Dictated by: Derrek Walters M.D. on 11/01/2019 at 16:35 Approved by: Derrek Walters M.D. on 11/01/2019 at 16:37
--- NOTE | 2019-11-01 | DI.RAD.S_ITS ---
PROCEDURE: XR PELVIS 1-2V INDICATIONS: PRESSURE INJURY/OSTEOMYELITIS TECHNIQUE: Single view(s) of the pelvis acquired. COMPARISON: [facility], CT, CT ABDOMEN PELVIS WO CON, 07/28/2019, 8:14. FINDINGS: Bones: No fracture. Diffuse osteopenia. Mild bilateral hip joint degeneration. Soft tissues: Visualized bowel gas pattern is normal. No suspicious soft tissue calcifications. IMPRESSION: No focal osseous destruction to suggest advanced osteomyelitis. If there is persistent clinical concern, continued short interval radiographic followup or contrast enhanced MRI could be performed to assess for early infection. Diffuse osteopenia. Dictated by: Derrek Walters M.D. on 11/01/2019 at 16:32 Approved by: Derrek Walters M.D. on 11/01/2019 at 16:35
[2019-11-01 16:53] LABS: Add Manual Diff / Slide Review NO; Basophils Absolute Auto 0 /uL (0-100); Basophils Percent Auto 0.6 % (0-2); Eosinophils Absolute Auto 0 /uL (0-450); Eosinophils Percent Auto 0.7 % (2-4); Hematocrit 29.4 % (36-46); Hemoglobin 9.4 g/dL (12.0-16.0); Lymphocytes Absolute Auto 1900 /uL (1100-4500); Mean Corpuscular HGB Conc 32.1 % (30-36); Mean Corpuscular Hemoglobin 28.8 PG (26-34); Mean Corpuscular Volume 89.9 fL (80-100); Monocytes Absolute Auto 800 /uL (0-900); Monocytes Percent Auto 12.2 % (3-14); Neutrophils Absolute Auto 4100 /uL (1500-7000); Neutrophils Percent Auto 59.5 % (50-75); Platelet Count 252 X10^3/uL (150-400); Red Blood Cell Count 3.27 X10^6/uL (4.0-5.2); Red Cell Distribution Width 16.1 % (11.6-14.8); White Blood Cell Count 6.9 X10^3/uL (4.5-11.0)
[2019-11-01 17:14] LABS: Alanine Aminotransferase 18 IU/L (<35); Albumin 3.3 g/dL (3.5-5.0); Alkaline Phosphatase 113 U/L (38-126); Aspartate Aminotransferase 27 IU/L (14-36); BUN Creatinine Ratio 26.5 (6-22); Bilirubin Total 0.9 mg/dL (0.2-1.3); Blood Urea Nitrogen 13 mg/dL (7-17); Calcium 8.9 mg/dL (8.4-10.2); Carbon Dioxide 20 mmol/L (22-32); Chloride 109 mmol/L (98-107); Estimated Glomerular Filt Rate > 60.0 mL/min (>60); Globulin 3.2 g/dL (1.7-4.1); Glucose 81 mg/dL (80-110); HEMOLYSIS < 15 (0-50); Potassium 4.1 mmol/L (3.4-5.1); Sodium 136 mmol/L (137-145); Total Protein 6.5 g/dL (6.3-8.2)
[2019-11-01 17:19] LABS: Prealbumin 9.4 mg/dL (17.6-36.0)
[2019-11-01 17:30] LABS: Erythrocyte Sedimentation Rate 33 MM/HR (0-20)
== END ==
PROVIDERS: PCP Nurse Practitioner; Referring Provider Family Medicine; Visit Provider Family Medicine
DX: L89.154 Pressure ulcer of sacral region, stage 4 (principal); L08.9 Local infection of the skin and subcutaneous tissue, unspecified; M16.0 Bilateral primary osteoarthritis of hip; M85.88 Other specified disorders of bone density and structure, other site
CPT/HCPCS: 36415; 72170; 72220; 80053; 84134; 85025; 85651; 86140

== ENCOUNTER → 2019-11-15 13:53 | Outpatient (CLI) | payer OTHER, MEDICAID, SELFPAY | PROVIDERS: PCP Nurse Practitioner; Referring Provider Nurse Practitioner; Visit Provider Family Medicine | DX: L89.154 Pressure ulcer of sacral region, stage 4 (principal); L08.9 Local infection of the skin and subcutaneous tissue, unspecified; R77.0 Abnormality of albumin | CPT/HCPCS: 99213; 99214 ==

== ENCOUNTER 2019-11-15 14:10 | Inpatient (IN) | payer MEDICAID, SELFPAY ==
[2019-11-15] VITALS (8 sets, daily range): BP systolic 97–156; BP diastolic 40–72; PULSE 78–94; RESP 15–22; TEMP 36.8–37.9; O2SAT 97–99; BMI 16.7
--- NOTE | 2019-11-15 14:50 | DI.CT.S_ITS ---
PROCEDURE: CT PELVIS W CON INDICATIONS: sacral ulcer TECHNIQUE: After the administration of intravenous contrast, 5 mm thick sections acquired from the iliac crests to the symphysis. 5 mm coronal and sagittal reformats were acquired. For radiation dose reduction, the following was used: automated exposure control, adjustment of mA and/or kV according to patient size. COMPARISON:. [facility], CT, CT ABDOMEN PELVIS W CON, 05/25/2019, 12:14. [facility], CT, CT ABDOMEN PELVIS WO CON, 07/28/2019, 8:14Of cystitis . [facility], CR, XR PELVIS 1-2V, 11/01/2019, 15:46. FINDINGS: Image quality: Excellent. Large sacral ulcer is seen in the posterior subcutaneous soft tissues. This extends to the cortex of the sacrum/coccyx however no focal osseous destruction identified. There is associated soft tissue gas, cellulitis and swelling. No discrete rim enhancing abscess identified. Right pelvic free fluid. There is mural thickening of the bladder. Diffuse osteopenia. Lower lumbar spondylosis and bilateral hip joint degeneration. IMPRESSION: Large deep ulcerative wound overlying the sacrum/coccyx. No focal osseous destruction to suggest advanced osteomyelitis. If there is persistent clinical concern, continued short interval radiographic followup or contrast enhanced MRI could be performed to assess for early infection. Prominent mural thickening of the bladder suggestive of cystitis. Please correlate clinically and with urinalysis data. Right pelvic free fluid , non-specific finding. Dictated by: Derrek Walters M.D. on 11/15/2019 at 15:53 Approved by: Derrek Walters M.D. on 11/15/2019 at 15:58
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
[2019-11-15] MEDS: HYDROMORPHONE 1 MG INJ IV (15:08)
[2019-11-15] MEDS: SODIUM CHLORIDE 0.9% 1,000 ML 250 ML IV (15:09)
[2019-11-15 15:13] LABS: Add Manual Diff / Slide Review NO; Basophils Absolute Auto 0 /uL (0-100); Basophils Percent Auto 0.3 % (0-2); Eosinophils Absolute Auto 0 /uL (0-450); Eosinophils Percent Auto 0.5 % (2-4); Hematocrit 28.8 % (36-46); Hemoglobin 9.3 g/dL (12.0-16.0); Lymphocytes Absolute Auto 1500 /uL (1100-4500); Lymphocytes Percent Auto 16.9 % (25-40); Mean Corpuscular HGB Conc 32.2 % (30-36); Monocytes Absolute Auto 1000 /uL (0-900); Monocytes Percent Auto 11.8 % (3-14); Neutrophils Absolute Auto 6300 /uL (1500-7000); Neutrophils Percent Auto 70.5 % (50-75); Platelet Count 371 X10^3/uL (150-400); Red Blood Cell Count 3.42 X10^6/uL (4.0-5.2); Red Cell Distribution Width 17.6 % (11.6-14.8); White Blood Cell Count 8.9 X10^3/uL (4.5-11.0)
[2019-11-15 15:18] LABS: INR 2.3 (0.9-1.3); Prothrombin Time 26.2 SECONDS (10.1-12.7)
[2019-11-15 15:22] LABS: Lactate (Lactic Acid) 1.7 mmol/L (0.7-2.1)
[2019-11-15 15:23] LABS: Alanine Aminotransferase 21 IU/L (<35); Albumin 3.2 g/dL (3.5-5.0); Albumin Globulin Ratio 0.9 (1.0-2.8); Alkaline Phosphatase 123 U/L (38-126); Aspartate Aminotransferase 35 IU/L (14-36); BUN Creatinine Ratio 19.1 (6-22); Bilirubin Total 0.9 mg/dL (0.2-1.3); Blood Urea Nitrogen 9 mg/dL (7-17); Calcium 8.1 mg/dL (8.4-10.2); Carbon Dioxide 20 mmol/L (22-32); Chloride 107 mmol/L (98-107); Estimated Glomerular Filt Rate > 60.0 mL/min (>60); Globulin 3.5 g/dL (1.7-4.1); Glucose 100 mg/dL (80-110); HEMOLYSIS < 15 (0-50); Potassium 3.7 mmol/L (3.4-5.1); Sodium 134 mmol/L (137-145); Total Protein 6.7 g/dL (6.3-8.2)
[2019-11-15 15:26] LABS: C-Reactive Protein Quant 2.9 mg/dL (<1.0)
[2019-11-15 15:37] LABS: Procalcitonin 0.06 ng/mL (<0.5)
[2019-11-15 16:31] LABS: Ammonia (NH3) < 9 umol/L (9-30)
[2019-11-15] MEDS: KETOROLAC 60 MG/2 ML VIAL 15 MG IV (17:31)
[2019-11-15 18:11] LABS: Bacteria Urine None Seen; RBC Urine None Seen (0-5/HPF)
[2019-11-15 18:13] LABS: Appearance Urine UA CLEAR; Bilirubin Urine UA NEGATIVE (NEGATIVE); Color Urine UA YELLOW; Glucose Urine UA NEGATIVE (Negative); Ketones Urine UA NEGATIVE (NEGATIVE); Leukocyte Esterase Urine UA NEGATIVE (NEGATIVE); Nitrite Urine UA NEGATIVE (Negative); Occult Blood Urine UA TRACE-LYSED (Negative); Protein Urine UA NEGATIVE (Negative); Specific Gravity Urine UA <=1.005 (1.000-1.035); Urobilinogen Urine UA 0.2 E.U./dL (0.2)
[2019-11-15 18:19] LABS: Culture Indicated Urine Specimen Cultured; WBC Urine 5-10/HPF (0-5/HPF)
[2019-11-15 18:48] LABS: COVID19 -Nasal RAPID Negative (Negative)
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
[2019-11-15] MEDS: SODIUM CHLORIDE 0.9% 1,000 ML 100 ML IV (21:04)
--- NOTE | 2019-11-15 23:22 | PC.NURSE ---
Evening Shift Note No output this shift, bladder scan with 250cc in bladder. Vo flushed with 20cc NS and immediate return if 400cc. Vo continues to drain. July urine with mucus.
[2019-11-15] MEDS: TRAMADOL 50 MG TABLET PO (23:49)
[2019-11-16] VITALS (8 sets, daily range): BP systolic 95–110; BP diastolic 53–71; PULSE 71–82; RESP 16–18; TEMP 36.4–38.1; O2SAT 94–98
[2019-11-16 05:52] LABS: Add Manual Diff / Slide Review NO; Basophils Absolute Auto 0 /uL (0-100); Basophils Percent Auto 0.4 % (0-2); Eosinophils Absolute Auto 100 /uL (0-450); Eosinophils Percent Auto 1.1 % (2-4); Hematocrit 23.3 % (36-46); Hemoglobin 7.4 g/dL (12.0-16.0); Lymphocytes Absolute Auto 2000 /uL (1100-4500); Mean Corpuscular HGB Conc 31.7 % (30-36); Mean Corpuscular Hemoglobin 26.8 PG (26-34); Mean Corpuscular Volume 84.3 fL (80-100); Monocytes Absolute Auto 600 /uL (0-900); Monocytes Percent Auto 10.1 % (3-14); Neutrophils Absolute Auto 3300 /uL (1500-7000); Neutrophils Percent Auto 55.4 % (50-75); Platelet Count 290 X10^3/uL (150-400); Red Blood Cell Count 2.76 X10^6/uL (4.0-5.2); Red Cell Distribution Width 17.7 % (11.6-14.8)
[2019-11-16 06:01] LABS: Alanine Aminotransferase 16 IU/L (<35); Albumin 2.2 g/dL (3.5-5.0); Albumin Globulin Ratio 0.8 (1.0-2.8); Alkaline Phosphatase 77 U/L (38-126); Aspartate Aminotransferase 27 IU/L (14-36); Bilirubin Total 0.8 mg/dL (0.2-1.3); Blood Urea Nitrogen 8 mg/dL (7-17); Calcium 7.2 mg/dL (8.4-10.2); Carbon Dioxide 17 mmol/L (22-32); Chloride 112 mmol/L (98-107); Estimated Glomerular Filt Rate > 60.0 mL/min (>60); Globulin 2.9 g/dL (1.7-4.1); Glucose 88 mg/dL (80-110); HEMOLYSIS < 15 (0-50); Magnesium 1.8 mg/dL (1.6-2.3); Sodium 133 mmol/L (137-145); Total Protein 5.1 g/dL (6.3-8.2)
[2019-11-16] MEDS: SODIUM CHLORIDE 0.9% 1,000 ML 100 ML IV (06:50)
[2019-11-16] MEDS: PANTOPRAZOLE 40 MG TABLET PO (06:50)
--- NOTE | 2019-11-16 07:23 | PM.CN ---
History of Present Illness Consult details Date Patient Seen: 11/16/19 Time Patient Seen: 07:23 Chief complaint: wound on her back, sent by wound care Narrative: 59-year-old female seen in consultation for a sacral decubitus ulcer. She is wheelchair-bound secondary to paralysis has a sacral decubitus ulcer for the past 1-[address] Alex Paul of wound care. He sent her to the emergency room yesterday for progression of the ulcer and associated infection that was not responding to local debridement and oral antibiotics. Meds Home Medications and Allergies Home Medications Medication Instructions Recorded Confirmed Type efyayugfdh-auglfasycmezz-[id number] 1 tab PO DAILY PRN 12/01/18 11/15/19 History omeprazole 20 mg PO QAM 12/01/18 11/15/19 History Mavyret 3 tab PO QPM 05/25/19 05/25/19 History chlorhexidine gluconate [Paroex 15 ml BUCCAL BID #473 ml 07/29/19 11/15/19 Rx Oral Rinse] tramadol 50 - 100 mg PO Q12H PRN #10 tab 07/29/19 11/15/19 Rx furosemide 20 mg PO DAILY 11/15/19 11/15/19 History levofloxacin 500 mg PO DAILY 11/15/19 11/15/19 History spironolactone 50 mg PO DAILY 11/15/19 11/15/19 History Allergies Allergy/AdvReac Type Severity Reaction Status Date / Time No Known Drug Allergies Allergy Verified 11/15/19 14:17 Review of Systems Review of Systems Narrative: A 10 point review of systems is negative except as noted in the HPI Exam Vital Signs (past 8 hours): - 11/15/19 23:51 11/15/19 23:55 11/16/19 06:02 Temperature 100.3 F H 97.9 F Pulse Rate 79 71 Respiratory Rate 16 16 Blood Pressure 97/46 L 108/56 L Pulse Oximetry 97 97 96 Oxygen Delivery Method Room Air Oxygen Flow Rate 0 Narrative Exam Narrative: General-no acute distress, thin woman HEENT-moist mucous membranes, no scleral icterus Chest- non labored respirations, clear to auscultation bilaterally Cardiac-regular rate no peripheral edema Abdomen-soft, nontender, non distended Back-sacral decubitus ulcer. Approximately 4 cm in maximal diameter, sacrum is exposed. Necrotic tissue at the base of the wound and associated purulence. Malodordous. Extremities-warm, well perfused Neurological-alert and oriented Objective Labs Result Diagrams: 11/16/19 05:30 11/16/19 05:30 Labs: Laboratory Results - last 24 hr 11/15/19 11/15/19 11/15/19 14:55 14:55 14:55 WBC 8.9 RBC 3.42 L Hgb 9.3 L Hct 28.8 L MCV 84.0 MCH 27.0 MCHC 32.2 RDW 17.6 H Plt Count 371 Neut % (Auto) 70.5 Lymph % (Auto) 16.9 L [place] % (Auto) 11.8 Eos % (Auto) 0.5 L Baso % (Auto) 0.3 Neut # (Auto) 6300 Lymph # (Auto) 1500 [place] # (Auto) 1000 H Eos # (Auto) 0 Baso # (Auto) 0 PT 26.2 H INR 2.3 H Sodium Potassium Chloride Carbon Dioxide BUN Creatinine Estimated GFR BUN/Creatinine Ratio Glucose Lactate Calcium Magnesium Total Bilirubin AST ALT Alkaline Phosphatase Ammonia C-Reactive Protein Total Protein Albumin Globulin Albumin/Globulin Ratio Procalcitonin 0.06 Urine Color Urine Appearance Urine pH Ur Specific [place] Urine Protein Urine Glucose (UA) Urine Ketones Urine Occult Blood Urine Nitrate Urine Bilirubin Urine Urobilinogen Ur Leukocyte Esterase Urine RBC Urine WBC Urine Bacteria Ur Culture Indicated? COVID-19 PCR 11/15/19 11/15/19 11/15/19 14:55 14:55 14:55 WBC RBC Hgb Hct MCV MCH MCHC RDW Plt Count Neut % (Auto) Lymph % (Auto) [place] % (Auto) Eos % (Auto) Baso % (Auto) Neut # (Auto) Lymph # (Auto) [place] # (Auto) Eos # (Auto) Baso # (Auto) PT INR Sodium 134 L Potassium 3.7 Chloride 107 Carbon Dioxide 20 L BUN 9 Creatinine 0.47 L Estimated GFR > 60.0 BUN/Creatinine Ratio 19.1 Glucose 100 Lactate 1.7 Calcium 8.1 L Magnesium Total Bilirubin 0.9 AST 35 ALT 21 Alkaline Phosphatase 123 Ammonia C-Reactive Protein 2.9 H Total Protein 6.7 Albumin 3.2 L Globulin 3.5 Albumin/Globulin Ratio 0.9 L Procalcitonin Urine Color Urine Appearance Urine pH Ur Specific [place] Urine Protein Urine Glucose (UA) Urine Ketones Urine Occult Blood Urine Nitrate Urine Bilirubin Urine Urobilinogen Ur Leukocyte Esterase Urine RBC Urine WBC Urine Bacteria Ur Culture Indicated? COVID-19 PCR 11/15/19 11/15/19 11/15/19 16:09 17:15 17:32 WBC RBC Hgb Hct MCV MCH MCHC RDW Plt Count Neut % (Auto) Lymph % (Auto) [place] % (Auto) Eos % (Auto) Baso % (Auto) Neut # (Auto) Lymph # (Auto) [place] # (Auto) Eos # (Auto) Baso # (Auto) PT INR Sodium Potassium Chloride Carbon Dioxide BUN Creatinine Estimated GFR BUN/Creatinine Ratio Glucose Lactate Calcium Magnesium Total Bilirubin AST ALT Alkaline Phosphatase Ammonia < 9 L C-Reactive Protein Total Protein Albumin Globulin Albumin/Globulin Ratio Procalcitonin Urine Color Yellow Urine Appearance Clear Urine pH 6.0 Ur Specific [place] <=1.005 Urine Protein Negative Urine Glucose (UA) Negative Urine Ketones Negative Urine Occult Blood Trace-lysed Urine Nitrate Negative Urine Bilirubin Negative Urine Urobilinogen 0.2 Ur Leukocyte Esterase Negative Urine RBC None seen Urine WBC 5-10/hpf H Urine Bacteria None seen Ur Culture Indicated? Specimen cultured COVID-19 PCR Negative 11/16/19 11/16/19 05:30 05:30 WBC 6.0 RBC 2.76 L Hgb 7.4 L Hct 23.3 L MCV 84.3 MCH 26.8 MCHC 31.7 RDW 17.7 H Plt Count 290 Neut % (Auto) 55.4 Lymph % (Auto) 33.0 [place] % (Auto) 10.1 Eos % (Auto) 1.1 L Baso % (Auto) 0.4 Neut # (Auto) 3300 Lymph # (Auto) 2000 [place] # (Auto) 600 Eos # (Auto) 100 Baso # (Auto) 0 PT INR Sodium 133 L Potassium 4.0 Chloride 112 H Carbon Dioxide 17 L BUN 8 Creatinine 0.47 L Estimated GFR > 60.0 BUN/Creatinine Ratio 17.0 Glucose 88 Lactate Calcium 7.2 L Magnesium 1.8 Total Bilirubin 0.8 AST 27 ALT 16 Alkaline Phosphatase 77 Ammonia C-Reactive Protein Total Protein 5.1 L Albumin 2.2 L Globulin 2.9 Albumin/Globulin Ratio 0.8 L Procalcitonin Urine Color Urine Appearance Urine pH Ur Specific [place] Urine Protein Urine Glucose (UA) Urine Ketones Urine Occult Blood Urine Nitrate Urine Bilirubin Urine Urobilinogen Ur Leukocyte Esterase Urine RBC Urine WBC Urine Bacteria Ur Culture Indicated? 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 The ulcer would benefit from surgical debridement but given that she has exposed bone she has osteomyelitis by definitiom and this is extremely unlikely to heal with local measures. Consideration should be given to transfer of the patient to a tertiary care center for further care as she may benefit from more invasive measures such as a tissue flap procedure. She has been tentively placed on OR schedule for today for sacral debridement.
--- NOTE | 2019-11-16 10:57 | PC.NURSE ---
Addendum entered by Margie Estrada R.N. 11/16/19 14:42: Pt did not end up having 1314 documented dose of Chlorhexidine Gluconate. Unable to undo documentation as was given by another RN. Pt stated she will take her night time dose. Addendum entered by Margie Estrada R.N. 11/16/19 13:13: Pt now may eat, no procedure at this time. Pt aware of possible pending transfer to another facility. Pt now having water and eating lunch. IVF stopped per order. Pt was previously talking with her son Warren prior to this RN entering room. No further voiced concerns. Addendum entered by Margie Estrada R.N. 11/16/19 12:27: Pt reports 9/10 pain all over and more so to sacral area. PRN IV Dilaudid 1mg given at 1215 with good effect. sacral dressing saturated with serous, purulent drainage. Dressing removed, area cleansed with NS. Wound packed with 1 4X4 moist gauze and allevyn dressing applied. Mouth swabs X2 givne to pt for comfort. Original Note: Day Shift- Pt's is sleeping most of morning intermittently. NPO for procedure around 1300. IVF infusing well to right AC PIV. Bed alarm on, phone and call light within reach. Calf SCD's on BLE as ordered. Urinary catheter in place draining yellow urine with small amount of mucous present in tubing and bag. Pt's son and caregiver Warren called at 1055 for status update. Warren's phone number is [phone]. Pt sleeping at this time, this RN will let pt know Warren has called.
[2019-11-16] MEDS: HYDROMORPHONE 1 MG INJ IV ×3 (12:14→21:25)
[2019-11-16] MEDS: DOCUSATE 100 MG CAPSULE PO ×2 (13:14→20:19)
[2019-11-16] MEDS: CHLORHEXIDINE GLUCONATE 473 ML MOUTHWASH 15 ML PO ×2 (13:14→21:25)
--- NOTE | 2019-11-16 14:43 | PM.PN.1 ---
Subjective Subjective Date Patient Seen: 11/16/19 Time Patient Seen: 14:43 Interval history: Pt admitted during the night for nonhealing sacra decub. C/o pain and tenderness. Says she is incontinent of urine and stool and usually takes a bath after she has a BM or urinates. Exam Vital Signs (past 8 hours): - 11/16/19 08:25 11/16/19 08:30 11/16/19 11:57 Temperature 97.7 F 97.5 F L Pulse Rate 79 79 Respiratory Rate 18 16 Blood Pressure 96/56 L 95/53 L Pulse Oximetry 96 96 94 Oxygen Delivery Method Room Air Oxygen Flow Rate 0 Narrative Exam Narrative: GENERAL: Alert, oriented, tearful. Appears stated age. Answers questions promptly and appropriately. Vital signs noted. HENT: Normocephalic, atraumatic. Hearing intact. EYES: Conjunctiva pink, sclera white, no periorbital swelling. CARDIOVASCULAR: Regular rate. No pedal edema. RESPIRATORY: Non-tachypneic, breathing comfortably on room air. GASTROINTESTINAL: Abdomen soft and non-distended Sacral area: Deep chronic wound approximately 4 cm x 4 cm with exposed sacrum with fibrinous exudate and slough overlying the bone SKIN: Warm, dry, soft, appropriate color for ethnicity. No other lesions, rashes, or wounds. NEURO: Alert and Oriented X 3. Bilateral lower extremity paralysis, no other obvious neurologic deficit PSYCH: Tearful affect and depressed mood Objective Imaging CT scan - abdomen: Radiologist's impression: [address] [address] [address] Scan Report Signed Patient: Marisol Thompson [facility]#: [id number] : 9Acct:[id number] Age/Sex: 59 / FDate of Service: 11/15/19 Loc: ED Accession Number: [id number] Procedure: CT pelvis w con Ordering Provider: Ken Rasmussen MD PROCEDURE: CT PELVIS W CON INDICATIONS: sacral ulcer TECHNIQUE: After the administration of intravenous contrast, 5 mm thick sections acquired from the iliac crests to the symphysis. 5 mm coronal and sagittal reformats were acquired. For radiation dose reduction, the following was used: automated exposure control, adjustment of mA and/or kV according to patient size. COMPARISON:. [facility], CT, CT ABDOMEN PELVIS W CON, 05/25/2019, 12:14. [facility], CT, CT ABDOMEN PELVIS WO CON, 07/28/2019, 8:14Of cystitis . [facility], CR, XR PELVIS 1-2V, 11/01/2019, 15:46. FINDINGS: Image quality: Excellent. Large sacral ulcer is seen in the posterior subcutaneous soft tissues. This extends to the cortex of the sacrum/coccyx however no focal osseous destruction identified. There is associated soft tissue gas, cellulitis and swelling. No discrete rim enhancing abscess identified. Right pelvic free fluid. There is mural thickening of the bladder. Diffuse osteopenia. Lower lumbar spondylosis and bilateral hip joint degeneration. IMPRESSION: Large deep ulcerative wound overlying the sacrum/coccyx. No focal osseous destruction to suggest advanced osteomyelitis. If there is persistent clinical concern, continued short interval radiographic followup or contrast enhanced MRI could be performed to assess for early infection. Prominent mural thickening of the bladder suggestive of cystitis. Please correlate clinically and with urinalysis data. Right pelvic free fluid , non-specific finding. Dictated by: Derrek Walters M.D. on 11/15/2019 at 15:53 Approved by: Derrek Walters M.D. on 11/15/2019 at 15:58 Labs Result Diagrams: 11/16/19 05:30 11/16/19 05:30 Labs: Laboratory Results - last 24 hr 11/15/19 11/15/19 11/15/19 14:55 14:55 14:55 WBC 8.9 RBC 3.42 L Hgb 9.3 L Hct 28.8 L MCV 84.0 MCH 27.0 MCHC 32.2 RDW 17.6 H Plt Count 371 Neut % (Auto) 70.5 Lymph % (Auto) 16.9 L [place] % (Auto) 11.8 Eos % (Auto) 0.5 L Baso % (Auto) 0.3 Neut # (Auto) 6300 Lymph # (Auto) 1500 [place] # (Auto) 1000 H Eos # (Auto) 0 Baso # (Auto) 0 PT 26.2 H INR 2.3 H Sodium Potassium Chloride Carbon Dioxide BUN Creatinine Estimated GFR BUN/Creatinine Ratio Glucose Lactate Calcium Magnesium Total Bilirubin AST ALT Alkaline Phosphatase Ammonia C-Reactive Protein Total Protein Albumin Globulin Albumin/Globulin Ratio Procalcitonin 0.06 Urine Color Urine Appearance Urine pH Ur Specific [place] Urine Protein Urine Glucose (UA) Urine Ketones Urine Occult Blood Urine Nitrate Urine Bilirubin Urine Urobilinogen Ur Leukocyte Esterase Urine RBC Urine WBC Urine Bacteria Ur Culture Indicated? COVID-19 PCR 11/15/19 11/15/19 11/15/19 14:55 14:55 14:55 WBC RBC Hgb Hct MCV MCH MCHC RDW Plt Count Neut % (Auto) Lymph % (Auto) [place] % (Auto) Eos % (Auto) Baso % (Auto) Neut # (Auto) Lymph # (Auto) [place] # (Auto) Eos # (Auto) Baso # (Auto) PT INR Sodium 134 L Potassium 3.7 Chloride 107 Carbon Dioxide 20 L BUN 9 Creatinine 0.47 L Estimated GFR > 60.0 BUN/Creatinine Ratio 19.1 Glucose 100 Lactate 1.7 Calcium 8.1 L Magnesium Total Bilirubin 0.9 AST 35 ALT 21 Alkaline Phosphatase 123 Ammonia C-Reactive Protein 2.9 H Total Protein 6.7 Albumin 3.2 L Globulin 3.5 Albumin/Globulin Ratio 0.9 L Procalcitonin Urine Color Urine Appearance Urine pH Ur Specific [place] Urine Protein Urine Glucose (UA) Urine Ketones Urine Occult Blood Urine Nitrate Urine Bilirubin Urine Urobilinogen Ur Leukocyte Esterase Urine RBC Urine WBC Urine Bacteria Ur Culture Indicated? COVID-19 PCR 11/15/19 11/15/19 11/15/19 16:09 17:15 17:32 WBC RBC Hgb Hct MCV MCH MCHC RDW Plt Count Neut % (Auto) Lymph % (Auto) [place] % (Auto) Eos % (Auto) Baso % (Auto) Neut # (Auto) Lymph # (Auto) [place] # (Auto) Eos # (Auto) Baso # (Auto) PT INR Sodium Potassium Chloride Carbon Dioxide BUN Creatinine Estimated GFR BUN/Creatinine Ratio Glucose Lactate Calcium Magnesium Total Bilirubin AST ALT Alkaline Phosphatase Ammonia < 9 L C-Reactive Protein Total Protein Albumin Globulin Albumin/Globulin Ratio Procalcitonin Urine Color Yellow Urine Appearance Clear Urine pH 6.0 Ur Specific [place] <=1.005 Urine Protein Negative Urine Glucose (UA) Negative Urine Ketones Negative Urine Occult Blood Trace-lysed Urine Nitrate Negative Urine Bilirubin Negative Urine Urobilinogen 0.2 Ur Leukocyte Esterase Negative Urine RBC None seen Urine WBC 5-10/hpf H Urine Bacteria None seen Ur Culture Indicated? Specimen cultured COVID-19 PCR Negative 11/16/19 11/16/19 05:30 05:30 WBC 6.0 RBC 2.76 L Hgb 7.4 L Hct 23.3 L MCV 84.3 MCH 26.8 MCHC 31.7 RDW 17.7 H Plt Count 290 Neut % (Auto) 55.4 Lymph % (Auto) 33.0 [place] % (Auto) 10.1 Eos % (Auto) 1.1 L Baso % (Auto) 0.4 Neut # (Auto) 3300 Lymph # (Auto) 2000 [place] # (Auto) 600 Eos # (Auto) 100 Baso # (Auto) 0 PT INR Sodium 133 L Potassium 4.0 Chloride 112 H Carbon Dioxide 17 L BUN 8 Creatinine 0.47 L Estimated GFR > 60.0 BUN/Creatinine Ratio 17.0 Glucose 88 Lactate Calcium 7.2 L Magnesium 1.8 Total Bilirubin 0.8 AST 27 ALT 16 Alkaline Phosphatase 77 Ammonia C-Reactive Protein Total Protein 5.1 L Albumin 2.2 L Globulin 2.9 Albumin/Globulin Ratio 0.8 L Procalcitonin Urine Color Urine Appearance Urine pH Ur Specific [place] Urine Protein Urine Glucose (UA) Urine Ketones Urine Occult Blood Urine Nitrate Urine Bilirubin Urine Urobilinogen Ur Leukocyte Esterase Urine RBC Urine WBC Urine Bacteria Ur Culture Indicated? COVID-19 PCR Assessment & Plan Assessment and plan (1) Sacral decubitus ulcer, stage IV: Status: Acute (2) S/P fusion of thoracic spine: Problem details: Mathis rods and thoracic fixation following T12 fracture Status: Acute (3) Chronic paraplegia: Status: Acute (4) Incontinence of feces: Status: Acute (5) Incontinence of urine: Status: Acute Assessment & Plan narrative: This is a 59-year-old woman who is a paraplegic with chronic incontinence of urine and stool, and a chronic sacral decubitus ulcer which is now stage IV. There are notes from about 6 months ago that it was a stage II at that point. She has exposed sacrum, and due to the fact that she has failed outpatient management with good wound care, there is a high likelihood that she has osteomyelitis, poor nutrition, or other factors at play that must be optimized. The wound is not foul smelling and she is not septic. I do not see any surrounding cellulitis, necrotizing soft tissue infection, or abscess. A would consider a full evaluation for osteomyelitis including an MRI or possibly a bone biopsy. She was scheduled for the OR today to clean up the wound, but after discussing her case with Dr. Miranda, we decided to postpone that. I do not think that cleaning out the wound is going to ultimately make a difference in her ability to heal from this. She needs to have nutritional optimization, full evaluation to rule out osteomyelitis, and referral to a tertiary center where she can receive consultation and treatment from Plastic surgery and Orthopedic surgery (ease if indicated) in order to do a rotation flap or skin graft on the wound. If if needed to rule out infection or osteomyelitis I can take her to the operating room and do biopsy the wound tissue for culture or bone biopsy. Plan: Recommend transfer to a tertiary center for evaluation and treatment by plastic surgery/orthopedic surgery of deep sacral wound which has failed outpatient management If unable to transfer, I am happy to continue to follow the patient. If she does stay I would recommend we get an MRI to rule out osteomyelitis. I am available for wound debridement and biopsy as needed. Optimize nutrition COVID-19 COVID-19 status: Negative Result date/Date tested (Pos, Neg/Pending): 11/15/19 Time Spent With Patient Time with patient: 25 - 35 minutes Quality VTE Deep Vein Thrombosis/Pulmonary Embolism Present on Admission: No
--- NOTE | 2019-11-16 15:23 | PM.PN.1 ---
Subjective Subjective Date Patient Seen: 11/16/19 Interval history: Patient is 59-year-old female with paraplegia, chronic hep C with undetectable viral load post treatment, chronic sacral wound, who was sent over from wound care due to non healing sacral wound. Appreciate surgical consult by Dr. Mays who feels patient would benefit from transfer to tertiary care center where she can have plastic surgery consult as she will likely need a bigger intervention with skin flap in order for this to heal properly. There is no indication of significant cellulitis and patient otherwise stable. On CT there is no evidence of osteomyelitis although would probably need MRI and bone biopsy to definitively rule out. She does have elevated INR with coagulopathy presumably due to cirrhosis. We are working on transfer to tertiary care hospital. Exam Vital Signs (past 8 hours): - 11/16/19 08:25 11/16/19 08:30 11/16/19 11:57 Temperature 97.7 F 97.5 F L Pulse Rate 79 79 Respiratory Rate 18 16 Blood Pressure 96/56 L 95/53 L Pulse Oximetry 96 96 94 Oxygen Delivery Method Room Air Oxygen Flow Rate 0 Objective Labs Result Diagrams: 11/16/19 05:30 11/16/19 05:30 Labs: Laboratory Results - last 24 hr 11/15/19 11/15/19 11/15/19 14:55 14:55 14:55 WBC RBC Hgb Hct MCV MCH MCHC RDW Plt Count Neut % (Auto) Lymph % (Auto) [place] % (Auto) Eos % (Auto) Baso % (Auto) Neut # (Auto) Lymph # (Auto) [place] # (Auto) Eos # (Auto) Baso # (Auto) Sodium 134 L Potassium 3.7 Chloride 107 Carbon Dioxide 20 L BUN 9 Creatinine 0.47 L Estimated GFR > 60.0 BUN/Creatinine Ratio 19.1 Glucose 100 Calcium 8.1 L Magnesium Total Bilirubin 0.9 AST 35 ALT 21 Alkaline Phosphatase 123 Ammonia C-Reactive Protein 2.9 H Total Protein 6.7 Albumin 3.2 L Globulin 3.5 Albumin/Globulin Ratio 0.9 L Procalcitonin 0.06 Urine Color Urine Appearance Urine pH Ur Specific [place] Urine Protein Urine Glucose (UA) Urine Ketones Urine Occult Blood Urine Nitrate Urine Bilirubin Urine Urobilinogen Ur Leukocyte Esterase Urine RBC Urine WBC Urine Bacteria Ur Culture Indicated? COVID-19 PCR 11/15/19 11/15/19 11/15/19 16:09 17:15 17:32 WBC RBC Hgb Hct MCV MCH MCHC RDW Plt Count Neut % (Auto) Lymph % (Auto) [place] % (Auto) Eos % (Auto) Baso % (Auto) Neut # (Auto) Lymph # (Auto) [place] # (Auto) Eos # (Auto) Baso # (Auto) Sodium Potassium Chloride Carbon Dioxide BUN Creatinine Estimated GFR BUN/Creatinine Ratio Glucose Calcium Magnesium Total Bilirubin AST ALT Alkaline Phosphatase Ammonia < 9 L C-Reactive Protein Total Protein Albumin Globulin Albumin/Globulin Ratio Procalcitonin Urine Color Yellow Urine Appearance Clear Urine pH 6.0 Ur Specific [place] <=1.005 Urine Protein Negative Urine Glucose (UA) Negative Urine Ketones Negative Urine Occult Blood Trace-lysed Urine Nitrate Negative Urine Bilirubin Negative Urine Urobilinogen 0.2 Ur Leukocyte Esterase Negative Urine RBC None seen Urine WBC 5-10/hpf H Urine Bacteria None seen Ur Culture Indicated? Specimen cultured COVID-19 PCR Negative 11/16/19 11/16/19 05:30 05:30 WBC 6.0 RBC 2.76 L Hgb 7.4 L Hct 23.3 L MCV 84.3 MCH 26.8 MCHC 31.7 RDW 17.7 H Plt Count 290 Neut % (Auto) 55.4 Lymph % (Auto) 33.0 [place] % (Auto) 10.1 Eos % (Auto) 1.1 L Baso % (Auto) 0.4 Neut # (Auto) 3300 Lymph # (Auto) 2000 [place] # (Auto) 600 Eos # (Auto) 100 Baso # (Auto) 0 Sodium 133 L Potassium 4.0 Chloride 112 H Carbon Dioxide 17 L BUN 8 Creatinine 0.47 L Estimated GFR > 60.0 BUN/Creatinine Ratio 17.0 Glucose 88 Calcium 7.2 L Magnesium 1.8 Total Bilirubin 0.8 AST 27 ALT 16 Alkaline Phosphatase 77 Ammonia C-Reactive Protein Total Protein 5.1 L Albumin 2.2 L Globulin 2.9 Albumin/Globulin Ratio 0.8 L Procalcitonin Urine Color Urine Appearance Urine pH Ur Specific [place] Urine Protein Urine Glucose (UA) Urine Ketones Urine Occult Blood Urine Nitrate Urine Bilirubin Urine Urobilinogen Ur Leukocyte Esterase Urine RBC Urine WBC Urine Bacteria Ur Culture Indicated? COVID-19 PCR Quality VTE Deep Vein Thrombosis/Pulmonary Embolism Present on Admission: No
--- NOTE | 2019-11-16 15:57 | CM.DPNOTE ---
Addendum entered by LIBAN Mar 11/17/19 13:36: Tuesday11.17.19- According to Dr Bellamy, still anticipating transfer Original Note: DCP Note Patient discussed in multidisciplinary rounds. Patient is a 59 yo female, resident of [place]. Patient is paraplegic, presents w/ non healing sacral wound likely will require extensive surgery to include skin flap. According to chart review, patient assessed when she was admitted in July 2019; lives w/ son who is primary cg. Patient mostly indp w/ ADLs. son provides transportation. h/o felipa Miranda attempting trsnf to higher level of care for further consultation on non healing wound, likely will require skin flap JW
[2019-11-16] MEDS: SODIUM CHLORIDE 0.9% FLUSH 10 ML IV (20:19)
[2019-11-17] VITALS (15 sets, daily range): BP systolic 90–132; BP diastolic 47–70; PULSE 73–94; RESP 16–18; TEMP 36.3–38.7; O2SAT 94–98
[2019-11-17] MEDS: SODIUM CHLORIDE 0.9% FLUSH 10 ML IV ×3 (01:48→14:48)
[2019-11-17] MEDS: HYDROMORPHONE 1 MG INJ IV ×6 (01:48→21:43)
--- NOTE | 2019-11-17 03:07 | PC.NURSE ---
Pt. C/O bladder distention, states I think my bladder is full, it's very uncomfortable. Irrigated catheter with 30 cc of normal saline, noted 900 cc of avery urine with mucus sediment. Patient reported that's feel a lot better & it help my pain better. Will cont. POC & monitor.
[2019-11-17] MEDS: ACETAMINOPHEN 325 MG TABLET 650 MG PO ×2 (03:57→23:42)
--- NOTE | 2019-11-17 04:09 | PC.NURSE ---
CHICA Walters notified with the elevated temp. of 101.6. Blood cultures, labs & urine culture ordered. Vo cath. clamped & urine was collected sent to the lab. 650 mg. PO Tylenol admin. after BC & lab was drawn. Will cont. POC & monitor.
[2019-11-17 04:13] LABS: Add Manual Diff / Slide Review NO; Basophils Absolute Auto 100 /uL (0-100); Basophils Percent Auto 1.6 % (0-2); Eosinophils Absolute Auto 100 /uL (0-450); Eosinophils Percent Auto 0.8 % (2-4); Hematocrit 23.4 % (36-46); Hemoglobin 7.4 g/dL (12.0-16.0); Lymphocytes Absolute Auto 2100 /uL (1100-4500); Lymphocytes Percent Auto 31.1 % (25-40); Mean Corpuscular HGB Conc 31.7 % (30-36); Mean Corpuscular Hemoglobin 26.4 PG (26-34); Mean Corpuscular Volume 83.2 fL (80-100); Monocytes Absolute Auto 700 /uL (0-900); Monocytes Percent Auto 10.4 % (3-14); Neutrophils Absolute Auto 3900 /uL (1500-7000); Neutrophils Percent Auto 56.1 % (50-75); Platelet Count 295 X10^3/uL (150-400); Red Blood Cell Count 2.82 X10^6/uL (4.0-5.2); Red Cell Distribution Width 18.2 % (11.6-14.8); White Blood Cell Count 6.9 X10^3/uL (4.5-11.0)
[2019-11-17 04:19] LABS: Lactate (Lactic Acid) 1.4 mmol/L (0.7-2.1)
[2019-11-17 04:33] LABS: BUN Creatinine Ratio 15.6 (6-22); Blood Urea Nitrogen 7 mg/dL (7-17); Calcium 7.3 mg/dL (8.4-10.2); Carbon Dioxide 16 mmol/L (22-32); Chloride 107 mmol/L (98-107); Estimated Glomerular Filt Rate > 60.0 mL/min (>60); Glucose 93 mg/dL (80-110); HEMOLYSIS < 15 (0-50); Potassium 3.9 mmol/L (3.4-5.1); Sodium 129 mmol/L (137-145)
[2019-11-17 04:38] LABS: Procalcitonin < 0.05 ng/mL (<0.5)
[2019-11-17] MEDS: SODIUM CHLORIDE 0.9% 1,000 ML 84 ML IV ×2 (05:44→16:32)
[2019-11-17] MEDS: PANTOPRAZOLE 40 MG TABLET PO (06:18)
[2019-11-17 07:34] LABS: Adenovirus Not Detected (Not Detect); Bordetella pertussis Not Detected (Not Detect); Chlamydophila pneumoniae Not Detected (Not Detect); Coronavirus 229E Not Detected (Not Detect); Coronavirus HKU1 Not Detected (Not Detect); Coronavirus NL 63 Not Detected (Not Detect); Coronavirus OC43 Not Detected (Not Detect); Human Metapneumovirus Not Detected (Not Detect); Human Rhinovirus/Enterovirus Not Detected (Not Detect); Influenza A Not Detected (Not Detect); Influenza B Not Detected (Not Detect); Mycoplasma pneumoniae Not Detected (Not Detect); Parainfluenza Virus 1 Not Detected (Not Detect); Parainfluenza Virus 2 Not Detected (Not Detect); Parainfluenza Virus 3 Not Detected (Not Detect); Parainfluenza Virus 4 Not Detected (Not Detect); Respiratory Syncytial Virus Not Detected (Not Detect)
[2019-11-17 07:50] LABS: COVID19 -Nasal RAPID Negative (Negative)
--- NOTE | 2019-11-17 11:47 | P.PN_ITS ---
Subjective Subjective Date Patient Seen: 11/17/19 Time Patient Seen: 11:48 Interval history: No acute events overnight. Temp of 101.6 over night. Pt denies feeling ill or feverish. C/o severe pain in her sacral area. Exam Vital Signs (past 8 hours): - 11/17/19 03:57 11/17/19 04:34 11/17/19 04:55 Temperature 101.6 F H 101.5 F H 100.8 F H Pulse Rate Respiratory Rate Blood Pressure Pulse Oximetry 11/17/19 05:38 11/17/19 05:55 11/17/19 08:00 Temperature 100.8 F H 99.7 F H 97.9 F Pulse Rate 73 Respiratory Rate 18 Blood Pressure 90/47 L Pulse Oximetry 96 Oxygen Delivery Method Room Air Oxygen Flow Rate 0 Narrative Exam Narrative: GENERAL: Alert, oriented, tearful. Appears stated age. Answers questions promptly and appropriately. Vital signs noted. HENT: Normocephalic, atraumatic. Hearing intact. EYES: Conjunctiva pink, sclera white, no periorbital swelling. CARDIOVASCULAR: Regular rate. No pedal edema. RESPIRATORY: Non-tachypneic, breathing comfortably on room air. GASTROINTESTINAL: Abdomen soft and non-distended Sacral area: Deep chronic wound approximately 4 cm x 4 cm with exposed sacrum with fibrinous exudate and slough overlying the bone SKIN: Warm, dry, soft, appropriate color for ethnicity. No other lesions, rashes, or wounds. NEURO: Alert and Oriented X 3. Bilateral lower extremity paralysis, no other obvious neurologic deficit PSYCH: Tearful affect and depressed mood Objective Labs Result Diagrams: 11/17/19 03:50 11/17/19 03:50 Labs: Laboratory Results - last 24 hr 11/17/19 11/17/19 11/17/19 03:50 03:50 03:50 WBC 6.9 RBC 2.82 L Hgb 7.4 L Hct 23.4 L MCV 83.2 MCH 26.4 MCHC 31.7 RDW 18.2 H Plt Count 295 Neut % (Auto) 56.1 Lymph % (Auto) 31.1 [place] % (Auto) 10.4 Eos % (Auto) 0.8 L Baso % (Auto) 1.6 Neut # (Auto) 3900 Lymph # (Auto) 2100 [place] # (Auto) 700 Eos # (Auto) 100 Baso # (Auto) 100 Sodium Potassium Chloride Carbon Dioxide BUN Creatinine Estimated GFR BUN/Creatinine Ratio Glucose Lactate 1.4 Calcium Procalcitonin < 0.05 Chlamy pneumoniae PCR Adenovirus (PCR) B.parapertussis DNA PCR Coronavirus OC43 (PCR) Coronavirus HKU1 (PCR) Coronavirus 229E (PCR) COVID-19 PCR Coronavirus NL63 (PCR) Human Metapneumovir PCR Influenza A (RT-PCR) Influenza Type A (PCR) Influenza B (RT-PCR) Influenza Type B (PCR) M. pneumoniae (PCR) Parainfluenza 1 (PCR) Parainfluenza 2 (PCR) Parainfluenza 3 (PCR) Parainfluenza 4 (PCR) RSV (PCR) Entero/Rhino (PCR) 11/17/19 11/17/19 11/17/19 03:50 06:00 06:00 WBC RBC Hgb Hct MCV MCH MCHC RDW Plt Count Neut % (Auto) Lymph % (Auto) [place] % (Auto) Eos % (Auto) Baso % (Auto) Neut # (Auto) Lymph # (Auto) [place] # (Auto) Eos # (Auto) Baso # (Auto) Sodium 129 L Potassium 3.9 Chloride 107 Carbon Dioxide 16 L BUN 7 Creatinine 0.45 L Estimated GFR > 60.0 BUN/Creatinine Ratio 15.6 Glucose 93 Lactate Calcium 7.3 L Procalcitonin Chlamy pneumoniae PCR Adenovirus (PCR) B.parapertussis DNA PCR Coronavirus OC43 (PCR) Coronavirus HKU1 (PCR) Coronavirus 229E (PCR) COVID-19 PCR Negative Coronavirus NL63 (PCR) Human Metapneumovir PCR Influenza A (RT-PCR) Cancelled Influenza Type A (PCR) Influenza B (RT-PCR) Cancelled Influenza Type B (PCR) M. pneumoniae (PCR) Parainfluenza 1 (PCR) Parainfluenza 2 (PCR) Parainfluenza 3 (PCR) Parainfluenza 4 (PCR) RSV (PCR) Entero/Rhino (PCR) 11/17/19 06:00 WBC RBC Hgb Hct MCV MCH MCHC RDW Plt Count Neut % (Auto) Lymph % (Auto) [place] % (Auto) Eos % (Auto) Baso % (Auto) Neut # (Auto) Lymph # (Auto) [place] # (Auto) Eos # (Auto) Baso # (Auto) Sodium Potassium Chloride Carbon Dioxide BUN Creatinine Estimated GFR BUN/Creatinine Ratio Glucose Lactate Calcium Procalcitonin Chlamy pneumoniae PCR Not detected Adenovirus (PCR) Not detected B.parapertussis DNA PCR Not detected Coronavirus OC43 (PCR) Not detected Coronavirus HKU1 (PCR) Not detected Coronavirus 229E (PCR) Not detected COVID-19 PCR Coronavirus NL63 (PCR) Not detected Human Metapneumovir PCR Not detected Influenza A (RT-PCR) Influenza Type A (PCR) Not detected Influenza B (RT-PCR) Influenza Type B (PCR) Not detected M. pneumoniae (PCR) Not detected Parainfluenza 1 (PCR) Not detected Parainfluenza 2 (PCR) Not detected Parainfluenza 3 (PCR) Not detected Parainfluenza 4 (PCR) Not detected RSV (PCR) Not detected Entero/Rhino (PCR) Not detected Assessment & Plan Assessment and plan (1) Sacral decubitus ulcer, stage IV: Status: Acute (2) S/P fusion of thoracic spine: Problem details: Mathis rods and thoracic fixation following T12 fracture Status: Acute (3) Chronic paraplegia: Status: Acute (4) Incontinence of feces: Status: Acute (5) Incontinence of urine: Status: Acute Assessment & Plan narrative: This is a 59-year-old woman who is a paraplegic with chronic incontinence of urine and stool, and a chronic sacral decubitus ulcer which is now stage IV. There are notes from about 6 months ago that it was a stage II at that point. She has exposed sacrum, and due to the fact that she has failed outpatient management with good wound care, there is a high likelihood that she has osteomyelitis, poor nutrition, or other factors at play that must be optimized. The wound is not foul smelling and she is not septic. I do not see any surrounding cellulitis, necrotizing soft tissue infection, or abscess. I would consider a full evaluation for osteomyelitis including an MRI or possibly a bone biopsy. She needs to have nutritional optimization, full evaluation to rule out osteomyelitis, and referral to a tertiary center where she can receive consultation and treatment from a multidisciplinary team including Plastic surgery and Orthopedic surgery (if indicated due to finding of osteo), rehab, and PT. This wound is unlikely to heel in the setting of osteo or without a rotation flap or skin graft on the wound. Plan: Recommend transfer to a tertiary center for evaluation and treatment by multidisciplinary team with plastic surgery/orthopedic surgery of deep sacral wound which has failed outpatient management If unable to transfer, I am happy to continue to follow the patient. If she does stay I would recommend we get an MRI to rule out osteomyelitis. I am available for wound debridement and biopsy as needed. Optimize nutrition COVID-19 COVID-19 status: Negative Result date/Date tested (Pos, Neg/Pending): 11/15/19 Time Spent With Patient Time with patient: 25 - 35 minutes Quality VTE Deep Vein Thrombosis/Pulmonary Embolism Present on Admission: No
--- NOTE | 2019-11-17 16:09 | DI.MRI.S_ITS ---
PROCEDURE: MR PELIS WO/W CON INDICATIONS: Sacral soft tissue wound, clinical concern for sacral osteomyelitis TECHNIQUE: Noncontrast coronal T1 spin echo and STIR, sagittal T1 spin echo with fat saturation and STIR, axial T1 spin echo and T2 fast spin echo with fat saturation. After the administration of contrast, axial/sagittal/coronal T1 spin echo with fat saturation through the pelvis. COMPARISON: [facility], CR, XR SACRUM COCCYX MIN 2V, 11/01/2019, 15:46. [facility], CR, XR PELVIS 1-2V, 11/01/2019, 15:46. [facility], CT, CT PELVIS W CON, 11/15/2019, 15:17. FINDINGS: Image quality: This examination is limited by involuntary motion artifact. Bones: There is abnormal signal and abnormal enhancement seen involving the distal sacrum beginning at the S4 level through the coccyx. This is best seen on series 14, image 28. Chronic deformities are seen of the femoral necks and hips. Soft tissues: A deep wound is again seen overlying the distal sacrum/coccyx posteriorly. Generalized inflammatory changes are seen throughout the pelvis posteriorly, including the proximal thighs, yet most prominently posterior and anterior to the sacrum. Generalized enhancement can be seen involving the soft tissues overlying the sacrum. No drainable abscess is seen. There is free fluid seen within the pelvis. A Vo catheter is seen. However, the urinary bladder is moderately distended. IMPRESSION: Abnormal signal and enhancement can be seen involving the distal sacrum and the coccyx. These imaging findings are highly concerning for osteomyelitis. Overlying the distal sacrum, there is a deep soft tissue wound, with surrounding edema and enhancement, as previously demonstrated. No loculated, drainable abscess can be seen. Free fluid is again seen within the pelvis. A Vo catheter is seen, yet the urinary bladder is moderately distended. Please correlate with function of this catheter. Dictated by: Neptali Sher M.D. on 11/18/2019 at 10:06 Approved by: Neptali Sher M.D. on 11/18/2019 at 10:14
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
[2019-11-17] MEDS: OXYCODONE 5 MG/5 ML ORAL SOLUTION PO ×2 (16:32→20:21)
[2019-11-17] MEDS: PIPERACILLIN-TAZO 3.375 GM/50 ML FROZ.PIGGY IV ×2 (16:32→22:55)
[2019-11-17] MEDS: MORPHINE ER 15 MG TABLET PO (20:22)
[2019-11-17] MEDS: DOCUSATE 100 MG CAPSULE PO (20:22)
[2019-11-17] MEDS: CHLORHEXIDINE GLUCONATE 473 ML MOUTHWASH 15 ML PO (20:22)
--- NOTE | 2019-11-17 23:51 | PC.NURSE ---
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
[2019-11-18] VITALS (7 sets, daily range): BP systolic 103–105; BP diastolic 52–64; PULSE 69–78; RESP 16–17; TEMP 36.5–37.2; O2SAT 93–95
[2019-11-18] MEDS: HYDROMORPHONE 1 MG INJ IV ×4 (02:12→17:13)
--- NOTE | 2019-11-18 02:23 | PC.NURSE ---
Noted colon catheter only put out 75 cc since 2329. Irrigated her colon catheter with 30 cc of normal saline. Flushed easily & it drained approximately 300 cc after irrigated. Will monitor.
[2019-11-18] MEDS: PIPERACILLIN-TAZO 3.375 GM/50 ML FROZ.PIGGY IV ×4 (05:17→22:13)
[2019-11-18] MEDS: OXYCODONE 5 MG/5 ML ORAL SOLUTION PO ×3 (05:25→18:37)
[2019-11-18] MEDS: PANTOPRAZOLE 40 MG TABLET PO (06:49)
[2019-11-18] MEDS: SODIUM CHLORIDE 0.9% 1,000 ML 84 ML IV (07:00)
[2019-11-18] MEDS: MORPHINE ER 15 MG TABLET PO ×2 (08:44→21:38)
[2019-11-18] MEDS: SPIRONOLACTONE 25 MG TABLET 50 MG PO (11:08)
[2019-11-18] MEDS: SODIUM CHLORIDE 0.9% FLUSH 10 ML IV ×2 (17:13→21:38)
--- NOTE | 2019-11-18 18:11 | P.PN_ITS ---
Subjective Subjective Date Patient Seen: 11/18/19 Interval history: Patient is a 59-year-old female with a previous stage II sacral decubitus ulcer treated with levofloxacin for infection who failed outpatient treatment. Patient presented to the hospital with a huge stage for sacral decubitus ulcer. Since admission she has developed fever. She was started on IV antibiotics today. MRI study today suggested osteomyelitis of the sacrum. Patient continues to have significant pain. Pain medications have been adjusted accordingly. Exam Vital Signs (past 8 hours): - 11/18/19 15:54 11/18/19 17:32 Temperature 99.0 F Pulse Rate 78 Respiratory Rate 17 Blood Pressure 103/52 L Pulse Oximetry 95 93 Oxygen Delivery Method Room Air Oxygen Flow Rate 0 Narrative Exam Narrative: Ill-appearing female lying in bed uncomfortable Lungs: Clear to auscultation Cardiac exam: Regular rate and rhythm normal S1-S2 Abdomen: Soft and nontender Sacrum: Large 5 x 5 cm decubitus ulcer which goes to the bone. There is serous drainage, denuded tissue noted as well. Objective Labs Result Diagrams: 11/17/19 03:50 11/17/19 03:50 Assessment & Plan Assessment & Plan narrative: 59 y/o female admitted with a stage 4 decubitus ulcer likely infected that failed outpatient treatment -developed fever and now on IV Zosyn -significant pain noted, patient started on MS Contin 15 b.i.d. plus oxycodone plus Dilaudid for breakthrough pain -MRI suggests osteomyelitis of the sacral - MRI findings as follows: Abnormal signal and enhancement can be seen involving the distal sacrum and the coccyx. These imaging findings are highly concerning for osteomyelitis. Overlying the distal sacrum, there is a deep soft tissue wound, with surrounding edema and enhancement, as previously demonstrated. No loculated, drainable abscess can be seen.Free fluid is again seen within the pelvis. Hyponatremia -serum sodium 129 -continue IV hydration -will continue to monitor -spironolactone and lasix on hold Anemia -suspect anemia of chronic disease -IV iron -transfuse for hemoglobin less than 8 History of GI bleed -continue PPI -no evidence of bleeding now Hep C -resolved after Harvoni treatment Anticipate transfer to [facility] on Tuesday Discussed with probable revert on Tuesday. They anticipate plastic surgery available on Tuesday. They will review the case in the patient to determine whether she is appropriate for transfer. Will continue IV antibiotics and dressing changes until arrangements can be made to transfer for definitive surgical treated of her sacral decubitus ulcer and osteomyelitis. Quality VTE Deep Vein Thrombosis/Pulmonary Embolism Present on Admission: No
--- NOTE | 2019-11-18 19:00 | PC.NURSE ---
Addendum entered by Vicenta Chapman R.N. 11/18/19 22:08: Wet-to-dry drsg change done, as old drsg was saturated & leaking yellow serous drainage onto linen. Site cleaned with NS, allowed to air dry, one 4x4 soaked in NS was packed into wound bed, covered with dry gauze & allevyn gentle border. Pt repositioned for comfort. Colon with 240 ml total output, which is only slightly more than what was in the bag post-irrigation earlier this evening. I irrigated colon with 50 ml NS at cath hub, flushes easily, when urine started flowing into tubing I saw one moderately-sized mucous clump go through tubing. Urine output 700 ml cloudy yellow urine, 940 ml total since 1500. Original Note: Evening notes: Marisol reported increased pain to coccyx and wound site, oxycodone oral solution given. Little to nothing in colon catheter, scant amt of urine observed in tubing close to Y port. Colon irrigated with 40 ml sterile saline, after repositioning tubing & irrigating colon at hub, urine is now flowing into tubing and collection bag w/approx 200 ml output including the 40 ml flush. Will continue to assess need for further irrigation. Pt denies feeling like her bladder is full. VS are stable, IV now SL'd as IV antibiotic is complete. Pt repositioned to her left side, now repositioned on her right side for comfort.
[2019-11-18 19:30] LABS: HEMOLYSIS < 15 (0-50); Iron 14 ug/dL (37-170)
[2019-11-18 19:41] LABS: Percent Iron Saturation 5 % (15-50); Total Iron Binding Capacity 301 ug/dL (265-497); Transferrin 233 mg/dL (206-381)
[2019-11-18] MEDS: DOCUSATE 100 MG CAPSULE PO (21:38)
[2019-11-19] VITALS (7 sets, daily range): BP systolic 92–101; BP diastolic 43–56; PULSE 72–78; RESP 16–18; TEMP 36.7–37.4; O2SAT 90–96
--- NOTE | 2019-11-19 00:08 | PC.NURSE ---
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
[2019-11-19] MEDS: HYDROMORPHONE 1 MG INJ IV ×5 (00:28→16:53)
--- NOTE | 2019-11-19 02:38 | PC.NURSE ---
Addendum entered by Dennys Wallace R.N. 11/19/19 06:31: Again attempted to flush Vo. Tubing flushes easily, draw-back of syringe shows small amount of mucous, UOP of light yellow urine into Vo bag. Pt states she is not uncomfortable. Addendum entered by Dennys Wallace R.N. 11/19/19 05:39: Recheck of Vo shows increase in UOP. Recheck again at 0500, scant increase in UOP. Flushed w/60mL sterile saline, urine observed to be flowing into bag - bladder scan shows 140mL in bladder. Pt states that she does not feel she's distended, but, sometimes I can't tell. Original Note: Pt's urinary catheter draining light yellow urine. Flushed w/30mL sterile saline, no output. Will reevaluate in 1 hour after checking output. Pt is able to change positions somewhat independently. Requested pt ask for help to change from side to side. Bed tilt is being used to aid position changes.
[2019-11-19] MEDS: PIPERACILLIN-TAZO 3.375 GM/50 ML FROZ.PIGGY IV ×3 (04:42→16:34)
[2019-11-19] MEDS: PANTOPRAZOLE 40 MG TABLET PO (05:48)
[2019-11-19 06:05] LABS: Add Manual Diff / Slide Review NO; Basophils Absolute Auto 0 /uL (0-100); Basophils Percent Auto 0.5 % (0-2); Eosinophils Absolute Auto 100 /uL (0-450); Eosinophils Percent Auto 2.2 % (2-4); Hematocrit 23.7 % (36-46); Hemoglobin 7.5 g/dL (12.0-16.0); Lymphocytes Absolute Auto 1800 /uL (1100-4500); Lymphocytes Percent Auto 29.4 % (25-40); Mean Corpuscular HGB Conc 31.5 % (30-36); Mean Corpuscular Hemoglobin 26.1 PG (26-34); Mean Corpuscular Volume 82.9 fL (80-100); Monocytes Absolute Auto 700 /uL (0-900); Monocytes Percent Auto 10.7 % (3-14); Neutrophils Absolute Auto 3600 /uL (1500-7000); Neutrophils Percent Auto 57.2 % (50-75); Platelet Count 292 X10^3/uL (150-400); Red Blood Cell Count 2.86 X10^6/uL (4.0-5.2); Red Cell Distribution Width 17.6 % (11.6-14.8); White Blood Cell Count 6.3 X10^3/uL (4.5-11.0)
[2019-11-19 06:11] LABS: BUN Creatinine Ratio 12.8 (6-22); Blood Urea Nitrogen 6 mg/dL (7-17); Calcium 7.2 mg/dL (8.4-10.2); Carbon Dioxide 20 mmol/L (22-32); Chloride 105 mmol/L (98-107); Estimated Glomerular Filt Rate > 60.0 mL/min (>60); Glucose 90 mg/dL (80-110); HEMOLYSIS < 15 (0-50); Potassium 3.6 mmol/L (3.4-5.1); Sodium 130 mmol/L (137-145)
[2019-11-19] MEDS: OXYCODONE 5 MG/5 ML ORAL SOLUTION PO ×2 (07:08→11:58)
[2019-11-19] MEDS: SPIRONOLACTONE 25 MG TABLET 50 MG PO (09:11)
[2019-11-19] MEDS: MORPHINE ER 15 MG TABLET PO (09:11)
[2019-11-19] MEDS: SODIUM CHLORIDE 0.9% FLUSH 10 ML IV ×2 (09:11→14:14)
[2019-11-19] MEDS: DOCUSATE 100 MG CAPSULE PO (09:11)
[2019-11-19] MEDS: ENOXAPARIN 40 MG/0.4 ML SYRINGE SUBCUT (11:44)
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
--- NOTE | 2019-11-19 12:36 | PC.NURSE ---
SPOKE WITH BOJORQUEZ RN IN WOUND CARE TO CLARIFY CORRECT DRESSING RECOMMENDED FOR USE OF SACRAL ULCER UNTIL TRANSFERRED. PER RECOMMENDATIONS CLEANSED WOUND WITH NORMAL SALINE, PACKED WITH AQUACELAG, AND COVERED IN MIRAPLEX ABSORBANT DRESSING SECURED WITH HYPOFIX TAPE. PATIENT TOLERATED WELL.
[2019-11-19] MEDS: IRON SUCROSE 200 MG in SODIUM CHLORIDE 0.9% 100 ML 220 ML IV (12:46)
--- NOTE | 2019-11-19 16:23 | PC.NURSE ---
Addendum entered by Theresa Dorman R.N. 11/19/19 18:16: Report called [facility] here @ 1710 Pt transferred as per orders w/o incidence. Pt D/C in stable condition. Original Note: Pt resting at this time. Denies discomfort at this time. Lungs clear/diminished bases SpO2 96% RA HL LFA intact/patent. Vo cath patent clear yellow urine. Awaiting bed at [facility] for bed. Call light w/in reach, bed alarm on for pt safety.
[2019-11-19 22:42] LABS: Magnesium 1.8 mg/dL (1.6-2.3)
== END 2019-11-19 17:15 | disposition short-term general hospital (02) | DRG 539 ==
LOC: ED 14:37 → AC 17:39
PROVIDERS: Internal Medicine; Nurse Practitioner Family; Admitting Provider Internal Medicine; Emergency Provider Emergency Medicine; PCP Nurse Practitioner; Referring Provider Emergency Medicine; Visit Provider Internal Medicine
DX: M46.28 Osteomyelitis of vertebra, sacral and sacrococcygeal region (principal); L89.154 Pressure ulcer of sacral region, stage 4; G82.20 Paraplegia, unspecified; E46 Unspecified protein-calorie malnutrition; E87.1 Hypo-osmolality and hyponatremia; Z68.1 Body mass index [BMI] 19.9 or less, adult; K74.69 Other cirrhosis of liver; Z99.3 Dependence on wheelchair; D63.8 Anemia in other chronic diseases classified elsewhere; B18.2 Chronic viral hepatitis C; F17.210 Nicotine dependence, cigarettes, uncomplicated; Z11.59 Encounter for screening for other viral diseases; N39.498 Other specified urinary incontinence; R77.0 Abnormality of albumin
CPT/HCPCS: 36415; 51701; 72193; 72197; 80048; 80053; 81001; 82140; 83540; 83550; 83605; 83735; 84145; 85025; 85610; 86140; 87040; 87070; 87075; 87086; 87205; 87633; 87635; 96361; 96375; 99213; 99284; 99291; A9579; J1170; J1650; J1756; J1885; J2543; Q9967

== ENCOUNTER → 2020-01-10 14:53 | Outpatient (CLI) | payer MEDICAID, SELFPAY ==
[2019-11-15 18:43] VITALS: BMI 16.7
[2020-01-10 16:30] LABS: Add Manual Diff / Slide Review NO; Alanine Aminotransferase 24 IU/L (<35); Albumin 3.7 g/dL (3.5-5.0); Alkaline Phosphatase 123 U/L (38-126); Aspartate Aminotransferase 37 IU/L (14-36); BUN Creatinine Ratio 23.4 (6-22); Basophils Absolute Auto 0 /uL (0-100); Basophils Percent Auto 0.5 % (0-2); Bilirubin Total 0.6 mg/dL (0.2-1.3); Blood Urea Nitrogen 11 mg/dL (7-17); C-Reactive Protein Quant 1.3 mg/dL (<1.0); Calcium 8.8 mg/dL (8.4-10.2); Carbon Dioxide 23 mmol/L (22-32); Chloride 105 mmol/L (98-107); Eosinophils Absolute Auto 0 /uL (0-450); Eosinophils Percent Auto 0.6 % (2-4); Estimated Glomerular Filt Rate > 60.0 mL/min (>60); Globulin 3.6 g/dL (1.7-4.1); Glucose 93 mg/dL (80-110); HEMOLYSIS < 15 (0-50); Hematocrit 38.2 % (36-46); Hemoglobin 12.7 g/dL (12.0-16.0); Lymphocytes Absolute Auto 1600 /uL (1100-4500); Mean Corpuscular HGB Conc 33.2 % (30-36); Mean Corpuscular Volume 87.4 fL (80-100); Monocytes Absolute Auto 500 /uL (0-900); Monocytes Percent Auto 6.8 % (3-14); Neutrophils Absolute Auto 5100 /uL (1500-7000); Neutrophils Percent Auto 70.1 % (50-75); Platelet Count 247 X10^3/uL (150-400); Potassium 4.4 mmol/L (3.4-5.1); Red Blood Cell Count 4.37 X10^6/uL (4.0-5.2); Red Cell Distribution Width 20.6 % (11.6-14.8); Sodium 135 mmol/L (137-145); Total Protein 7.3 g/dL (6.3-8.2); White Blood Cell Count 7.3 X10^3/uL (4.5-11.0)
[2020-01-10 16:35] LABS: Prealbumin 10.5 mg/dL (17.6-36.0)
[2020-01-10 16:40] LABS: Erythrocyte Sedimentation Rate 14 MM/HR (0-20)
[2020-01-10 17:23] LABS: Anisocytosis 1+; Poikilocytosis 1+
== END ==
PROVIDERS: PCP Nurse Practitioner; Referring Provider Family Medicine; Visit Provider Family Medicine
DX: E43 Unspecified severe protein-calorie malnutrition (principal); L89.154 Pressure ulcer of sacral region, stage 4
CPT/HCPCS: 36415; 80053; 84134; 85025; 85651; 86140

== ENCOUNTER → 2020-01-10 15:42 | Outpatient (CLI) | payer OTHER, MEDICAID, SELFPAY ==
[2019-11-15 18:43] VITALS: BMI 16.7
== END ==
PROVIDERS: PCP Nurse Practitioner; Referring Provider Nurse Practitioner; Visit Provider Family Medicine
DX: L89.154 Pressure ulcer of sacral region, stage 4 (principal); E43 Unspecified severe protein-calorie malnutrition
CPT/HCPCS: 36415; 80053; 84134; 85025; 85651; 86140; 99213; 99214

== ENCOUNTER 2020-01-18 15:10 | Emergency (ER) | payer OTHER, MEDICAID, SELFPAY ==
[2019-11-15 18:43] VITALS: BMI 16.7
[2020-01-18] VITALS (28 sets, daily range): BP systolic 89–137; BP diastolic 50–76; PULSE 91–121; RESP 11–50; TEMP 36.1–36.5; O2SAT 89–100
--- NOTE | 2020-01-18 15:37 | ED_ITS ---
HPI - Weakness <Niki Wong DO - Last Filed: 01/20/20 07:14> General Chief complaint: Weakness Stated complaint: Weakness Time Seen by Provider: 01/18/20 15:29 Source: EMS Mode of arrival: EMS Limitations: altered mental status History of Present Illness HPI Narrative: Patient is 59-year-old paraplegic with chronic she was admitted in November for acute infection. She presents today with 3 days of declining mentation decreased oral intake abdominal pain and nausea without vomiting she seems confused and pale. She overall is a poor historian unable to give much if any history. Patient was admitted back in November for infected sacral wound. She was actually transferred to [facility] for plastic surgery evaluation. It was thought that she may need a diverting colostomy and a wound flap for her osteomyelitis of her sacrum. However I spoke with the son who states that no surgery was done and she was only treated with IV antibiotics. Son states that yesterday she had progressive decline. She has a chronic indwelling Vo catheter he says it frequently has mucus and needs to be flushed. Related Data Home Medications Medication Instructions Recorded Confirmed [id number] 1 tab PO DAILY PRN 12/01/18 11/15/19 omeprazole 20 mg PO QAM 12/01/18 11/15/19 Mavyret 3 tab PO QPM 05/25/19 11/16/19 furosemide 20 mg PO DAILY 11/15/19 11/15/19 levofloxacin 500 mg PO DAILY 11/15/19 11/15/19 spironolactone 50 mg PO DAILY 11/15/19 11/15/19 Previous Rx's Medication Instructions Recorded chlorhexidine gluconate [Paroex 15 ml BUCCAL BID #473 ml 07/29/19 Oral Rinse] tramadol 50 - 100 mg PO Q12H PRN #10 tab 07/29/19 Allergies Allergy/AdvReac Type Severity Reaction Status Date / Time No Known Drug Allergies Allergy Verified 01/18/20 15:22 <Serenity Smalls MD - Last Filed: 01/19/20 02:06> History of Present Illness HPI Narrative: Additional records are obtained from [facility]. 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 She eventually grew out E coli and Klebsiella resistant to ampicillin. She was seen by infectious disease and started on broad-spectrum antibiotics that were then consolidated to ceftriaxone 2 g IV daily and was discharged with no systemic signs of infection. She did have wound care andTACS consulted. She underwent bedside debridement by Wound Care those chances to heal wound are unlikely per TACS pharmacy consultant and no surgical interventions were felt to be warranted. Because of poor healing potential palliative care was consulted and had several discussions with the patient. 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 HCV has been treated. Diuretics were held due to hypotension and increased ascites. Review of Systems <Niki Wong DO - Last Filed: 01/20/20 07:14> Review of Systems ROS Unobtainable: Unobtainable due to mental condition Patient History <Niki Wong DO - Last Filed: 01/20/20 07:14> Medical History Acute hepatic encephalopathy (Acute) Altered mental status (Acute) Hepatic cirrhosis (Acute) Hepatitis C (Acute) Paraplegia (Acute) Self-catheterizes urinary bladder (Acute) Smoker (Acute) Wheelchair bound (Acute) Surgical History S/P fusion of thoracic spine (Acute) Status post colonoscopy Status post eye surgery Status post hysterectomy Family History Brother Age: 64 Blind Grandmother Age: 101 Pancreatic cancer Social History household members: children Smoking Status: Current every day smoker alcohol intake: current Smoking Status: Current every day smoker alcohol intake frequency: holidays/special occasions only Substance Use Type: marijuana Exam <DO Neil Willams Last Filed: 01/20/20 07:14> Initial Vital Signs Initial Vital Signs: Vital Signs Temperature 97.7 F 01/18/20 15:18 Pulse Rate 121 H 01/18/20 15:18 Respiratory Rate 20 01/18/20 15:18 Blood Pressure 108/54 L 10/16/20 15:18 Pulse Oximetry 100 01/18/20 15:18 Gen.: Week chronically ill female HEENT: Head is atraumatic alert Neck: Neck is supple Lungs: Clear bilaterally no wheezes rales or rhonchi Cardiac: Tachycardic regular Abdomen: Soft nontender nondistended RCTAL: Black loose stool guaiac positive Extremities: No gross bony deformities peripheral pulses intact Neurologic: Alert responsive voice can follow some commands SKIN: Large sacral ulcer which actually appears well. The tissue itself is pink there is no surrounding erythema no foul smell no gross drainage appears chronic. <STACIA CaceresBC - Last Filed: 01/18/20 19:28> Initial Vital Signs Initial Vital Signs: Vital Signs Temperature 97.7 F 01/18/20 15:18 Pulse Rate 121 H 01/18/20 15:18 Respiratory Rate 20 01/18/20 15:18 Blood Pressure 108/54 L 01/18/20 15:18 Pulse Oximetry 100 01/18/20 15:18 <Serenity Smalls MD - Last Filed: 01/19/20 02:06> Initial Vital Signs Initial Vital Signs: Vital Signs Temperature 97.7 F 01/18/20 15:18 Pulse Rate 121 H 01/18/20 15:18 Respiratory Rate 20 01/18/20 15:18 Blood Pressure 108/54 L 01/18/20 15:18 Pulse Oximetry 100 01/18/20 15:18 Course <Niki Wong DO - Last Filed: 01/20/20 07:14> Orders Ordered: Discontinued Medications Sodium Chloride (Normal Saline 0.9%) 1,000 mls @ 1,000 mls/hr IV BOLUS ONE Stop: 01/18/20 16:37 Last Infusion: 01/18/20 17:34 Dose: 0 mls/hr Documented by: Admin: 01/18/20 15:54 Dose: 1,000 mls/hr Documented by: JAD Lactated Ringer's (Lactated Ringers) 1,496.85 mls @ 498.95 mls/hr 30 ml/kg infuse over 3 hr (1496.85 ml) IV NOW ONE Stop: 01/18/20 19:22 Last Infusion: 01/18/20 20:11 Dose: 0 mls/hr Documented by: Infusion: 01/18/20 20:10 Dose: 498.95 mls/hr Documented by: Admin: 01/18/20 17:25 Dose: 498.95 mls/hr Documented by: KIANNA Piperacillin/Tazobactam/Dextrose (Zosyn) 3.375 gm in 50 mls @ 100 mls/hr IV NOW ONE Stop: 01/18/20 16:54 Last Infusion: 01/18/20 20:48 Dose: 0 mls/hr Documented by: Admin: 01/18/20 20:06 Dose: 100 mls/hr Documented by: KIANNA Vancomycin HCl/Dextrose (Vancomycin) 750 mg in 150 mls @ 150 mls/hr IV NOW ONE Stop: 01/18/20 17:25 Last Infusion: 01/18/20 19:05 Dose: 0 mls/hr Documented by: Admin: 01/18/20 17:27 Dose: 150 mls/hr Documented by: KIANNA Pantoprazole Sodium 80 mg/ (Sodium Chloride) 100 mls @ 10 mls/hr IV CONT DON Last Infusion: 01/19/20 01:31 Dose: 0 mg/hr, 0 mls/hr Documented by: Admin: 01/18/20 21:18 Dose: 8 mg/hr, 10 mls/hr Documented by: KIANNA Lactated Ringer's (Lactated Ringers) 500 mls @ 1,000 mls/hr IV BOLUS ONE Stop: 01/18/20 22:21 Last Infusion: 01/18/20 22:30 Dose: 0 mls/hr Documented by: Admin: 01/18/20 22:00 Dose: 1,000 mls/hr Documented by: KGMANPREET Lactated Ringer's (Lactated Ringers) 1,000 mls @ 150 mls/hr IV CONT DON Last Infusion: 01/19/20 01:32 Dose: 0 mls/hr Documented by: Admin: 01/18/20 23:27 Dose: 150 mls/hr Documented by: BEAR Piperacillin/Tazobactam/Dextrose (Zosyn) 3.375 gm in 50 mls @ 100 mls/hr IV Q6H DON Octreotide Acetate 500 mcg/ (Sodium Chloride) 101 mls @ 5.05 mls/hr IV CONT DON; Protocol Last Infusion: 01/19/20 01:32 Dose: 0 mcg/hr, 0 mls/hr Documented by: Admin: 01/18/20 23:24 Dose: 25 mcg/hr, 5.05 mls/hr Documented by: BEAR Octreotide Acetate (Sandostatin) 50 mcg IV NOW ONE Stop: 01/18/20 22:30 Last Admin: 01/18/20 23:32 Dose: 50 mcg Documented by: BEAR Pantoprazole Sodium (Protonix) 40 mg IV NOW ONE Stop: 01/18/20 16:31 Last Admin: 01/18/20 17:23 Dose: 40 mg Documented by: KIANNA Pantoprazole Sodium (Protonix) 40 mg IV NOW ONE Stop: 01/18/20 21:00 Last Admin: 01/18/20 21:52 Dose: 40 mg Documented by: BEAR Vital Signs Vital signs: Vital Signs - 8 hr 01/18/20 18:00 01/18/20 18:30 01/18/20 19:00 Temperature Pulse Rate 105 H 105 H 103 H Respiratory Rate 25 H 26 H 26 H Blood Pressure 134/76 117/63 103/66 Pulse Oximetry 100 100 89 L 01/18/20 19:30 01/18/20 20:00 01/18/20 20:30 Temperature Pulse Rate 109 H 106 H 104 H Respiratory Rate 31 H 29 H Blood Pressure 105/58 L 107/59 L 89/52 L Pulse Oximetry 100 100 98 01/18/20 20:34 01/18/20 21:00 01/18/20 21:30 Temperature Pulse Rate 111 H 110 H 117 H Respiratory Rate 31 H Blood Pressure 93/50 L 104/62 107/57 L Pulse Oximetry 100 100 100 01/18/20 22:00 01/18/20 22:22 01/18/20 22:24 Temperature 97.5 F L Pulse Rate 119 H 118 H 115 H Respiratory Rate 32 H 34 H 18 Blood Pressure 97/52 L 97/52 L Pulse Oximetry 100 91 01/18/20 22:30 01/18/20 22:40 01/18/20 23:00 Temperature 97.7 F 97 F L Pulse Rate 115 H 115 H 108 H Respiratory Rate 33 H 25 H 27 H Blood Pressure 96/56 L 96/56 L 100/61 Pulse Oximetry 99 100 01/18/20 23:01 01/18/20 23:15 01/18/20 23:45 Temperature Pulse Rate 110 H 102 H 91 H Respiratory Rate 19 27 H 36 H Blood Pressure 100/61 102/62 114/72 Pulse Oximetry 100 100 100 01/19/20 00:00 01/19/20 00:15 01/19/20 00:17 Temperature Pulse Rate 85 81 81 Respiratory Rate 27 H 25 H 22 Blood Pressure 103/58 L 84/53 L 85/52 L Pulse Oximetry 100 99 100 01/19/20 00:30 01/19/20 00:35 01/19/20 00:46 Temperature 97.7 F Pulse Rate 91 H 93 H Respiratory Rate 22 55 H Blood Pressure 92/52 L 106/57 L Pulse Oximetry 100 100 01/19/20 01:00 01/19/20 01:07 01/19/20 01:17 Temperature 98 F Pulse Rate 92 H 88 85 Respiratory Rate 48 H 29 H 25 H Blood Pressure 121/101 H 108/51 L Pulse Oximetry 100 100 01/19/20 01:19 Temperature Pulse Rate 87 Respiratory Rate 33 H Blood Pressure 108/51 L Pulse Oximetry 100 <SLY Caceres-BC - Last Filed: 01/18/20 19:28> Orders Ordered: Discontinued Medications Sodium Chloride (Normal Saline 0.9%) 1,000 mls @ 1,000 mls/hr IV BOLUS ONE Stop: 01/18/20 16:37 Last Infusion: 01/18/20 17:34 Dose: 0 mls/hr Documented by: Admin: 01/18/20 15:54 Dose: 1,000 mls/hr Documented by: JAD Lactated Ringer's (Lactated Ringers) 1,496.85 mls @ 498.95 mls/hr 30 ml/kg infuse over 3 hr (1496.85 ml) IV NOW ONE Stop: 01/18/20 19:22 Last Infusion: 01/18/20 20:11 Dose: 0 mls/hr Documented by: Infusion: 01/18/20 20:10 Dose: 498.95 mls/hr Documented by: Admin: 01/18/20 17:25 Dose: 498.95 mls/hr Documented by: KIANNA Piperacillin/Tazobactam/Dextrose (Zosyn) 3.375 gm in 50 mls @ 100 mls/hr IV NOW ONE Stop: 01/18/20 16:54 Last Infusion: 01/18/20 20:48 Dose: 0 mls/hr Documented by: Admin: 01/18/20 20:06 Dose: 100 mls/hr Documented by: KIANNA Vancomycin HCl/Dextrose (Vancomycin) 750 mg in 150 mls @ 150 mls/hr IV NOW ONE Stop: 01/18/20 17:25 Last Infusion: 01/18/20 19:05 Dose: 0 mls/hr Documented by: Admin: 01/18/20 17:27 Dose: 150 mls/hr Documented by: KIANNA Pantoprazole Sodium 80 mg/ (Sodium Chloride) 100 mls @ 10 mls/hr IV CONT DON Last Infusion: 01/19/20 01:31 Dose: 0 mg/hr, 0 mls/hr Documented by: Admin: 01/18/20 21:18 Dose: 8 mg/hr, 10 mls/hr Documented by: KIANNA Lactated Ringer's (Lactated Ringers) 500 mls @ 1,000 mls/hr IV BOLUS ONE Stop: 01/18/20 22:21 Last Infusion: 01/18/20 22:30 Dose: 0 mls/hr Documented by: Admin: 01/18/20 22:00 Dose: 1,000 mls/hr Documented by: KGMANPREET Lactated Ringer's (Lactated Ringers) 1,000 mls @ 150 mls/hr IV CONT DON Last Infusion: 01/19/20 01:32 Dose: 0 mls/hr Documented by: Admin: 01/18/20 23:27 Dose: 150 mls/hr Documented by: KGMANPREET Piperacillin/Tazobactam/Dextrose (Zosyn) 3.375 gm in 50 mls @ 100 mls/hr IV Q6H DON Octreotide Acetate 500 mcg/ (Sodium Chloride) 101 mls @ 5.05 mls/hr IV CONT DON; Protocol Last Infusion: 10/17/20 01:32 Dose: 0 mcg/hr, 0 mls/hr Documented by: Admin: 01/18/20 23:24 Dose: 25 mcg/hr, 5.05 mls/hr Documented by: BEAR Octreotide Acetate (Sandostatin) 50 mcg IV NOW ONE Stop: 01/18/20 22:30 Last Admin: 01/18/20 23:32 Dose: 50 mcg Documented by: BEAR Pantoprazole Sodium (Protonix) 40 mg IV NOW ONE Stop: 01/18/20 16:31 Last Admin: 01/18/20 17:23 Dose: 40 mg Documented by: KIANNA Pantoprazole Sodium (Protonix) 40 mg IV NOW ONE Stop: 01/18/20 21:00 Last Admin: 01/18/20 21:52 Dose: 40 mg Documented by: BEAR Vital Signs Vital signs: Vital Signs - 8 hr 01/18/20 18:00 01/18/20 18:30 01/18/20 19:00 Temperature Pulse Rate 105 H 105 H 103 H Respiratory Rate 25 H 26 H 26 H Blood Pressure 134/76 117/63 103/66 Pulse Oximetry 100 100 89 L 01/18/20 19:30 01/18/20 20:00 01/18/20 20:30 Temperature Pulse Rate 109 H 106 H 104 H Respiratory Rate 31 H 29 H Blood Pressure 105/58 L 107/59 L 89/52 L Pulse Oximetry 100 100 98 01/18/20 20:34 01/18/20 21:00 01/18/20 21:30 Temperature Pulse Rate 111 H 110 H 117 H Respiratory Rate 31 H Blood Pressure 93/50 L 104/62 107/57 L Pulse Oximetry 100 100 100 01/18/20 22:00 01/18/20 22:22 01/18/20 22:24 Temperature 97.5 F L Pulse Rate 119 H 118 H 115 H Respiratory Rate 32 H 34 H 18 Blood Pressure 97/52 L 97/52 L Pulse Oximetry 100 91 01/18/20 22:30 01/18/20 22:40 01/18/20 23:00 Temperature 97.7 F 97 F L Pulse Rate 115 H 115 H 108 H Respiratory Rate 33 H 25 H 27 H Blood Pressure 96/56 L 96/56 L 100/61 Pulse Oximetry 99 100 01/18/20 23:01 01/18/20 23:15 01/18/20 23:45 Temperature Pulse Rate 110 H 102 H 91 H Respiratory Rate 19 27 H 36 H Blood Pressure 100/61 102/62 114/72 Pulse Oximetry 100 100 100 01/19/20 00:00 01/19/20 00:15 01/19/20 00:17 Temperature Pulse Rate 85 81 81 Respiratory Rate 27 H 25 H 22 Blood Pressure 103/58 L 84/53 L 85/52 L Pulse Oximetry 100 99 100 01/19/20 00:30 01/19/20 00:35 01/19/20 00:46 Temperature 97.7 F Pulse Rate 91 H 93 H Respiratory Rate 22 55 H Blood Pressure 92/52 L 106/57 L Pulse Oximetry 100 100 01/19/20 01:00 01/19/20 01:07 01/19/20 01:17 Temperature 98 F Pulse Rate 92 H 88 85 Respiratory Rate 48 H 29 H 25 H Blood Pressure 121/101 H 108/51 L Pulse Oximetry 100 100 01/19/20 01:19 Temperature Pulse Rate 87 Respiratory Rate 33 H Blood Pressure 108/51 L Pulse Oximetry 100 <Serenity Smalls MD - Last Filed: 01/19/20 02:06> Course Course Narrative: Care is accepted from Dr. Wong Patient presents with altered mental status, criteria for sepsis, black stool is guaiac positive (no prior history of GI bleeding), and a chronic sacral decubitus ulcer. Initial concerning labs included a lactate at 6 and H&H is 9.1 and 28. She was given Zosyn and vancomycin as well as a 30 per kilos fluid bolus and lactic acid was beginning to trend down. Source for sepsis is unclear and this time however it does not appear to be pulmonary morning urinary and is presumed to be single wound again. The CT scan of the pelvis suggests is no significant progression of that wound and it is complicated findings. At 9:00 p.m. she is re-evaluated with blood pressure dropping to 93/50. She is independently examined. She has had another episode of large guaiac-positive stool and continues to be altered. Pulses 111 she remains afebrile and oxygen saturations on room air are in the 100% range. Current IV access is a single antecubital line on the left side. Have spoken with our admitting hospitalist service who believes that she needs to be at a larger facility where plastics and surgery can be involved for the sacral wound care. [facility] apparently does not have plastics and does not feel that a transfer to their facility is appropriate. Have spoken with the [facility] will need a hospitalist admission with GI consulting and surgery/plastics consulting. At this time she does need expanded IV access central line will be placed and she will be transfused 1 unit of packed red cells and FFP as she is bleeding and her protime is elevated (not anticoagulated) and now becoming hypotensive. Lactic acid was repeated and pending. May need pressors and central line access will be appropriate if that is required as well. Will continue LR fluid resuscitation In trying to find an accepting bed, [facility] has declined as they do not have surgical/plastics capacity to care for her. [facility] has had the same. Have been speaking with the transfer center at the [facility] and right now the [facility] and [facility] have no bed capacity. Other transfer center is checking with [facility] but it to has been quite full. Phone call to [facility] and they indicate that they do not have surgical/plastics capacity to help. Call to [facility] is made [facility] doesn't haVe capacity and doesn't have a bed avialable. May need to consider admit here for management of her GI bleed with treatment for sepsis with IV antibiotics with anticipation of transfer to larger facility with capacity when beds are available. Still waiting for [facility] transfer to return call, will discuss this option Central line is placed, continue fluid resuscitation, antibiotics, will talk with surgery regarding holding her here given no other bed availablity/capacity. BP up to 107/57 currently. 1027pm discharge notes from [facility] are reviewed. Certainly better understanding of why she was discharged home why they have declined taking her back. Given the history of hepatitis C with cirrhosis and ascites noted on that discharge summary will add octreotide to her current drips for her presumed upper GI bleed. 1107 discussed discharge summary from [facility] and recommendation to consider hospice care with the patient's son. He does very much agree with a DNR status however feels that she has not been fully evaluated and does not trust the care provided at [facility] Apparently they had a consultation with wound care clinic here at [facility] and there were plans to have a wound VAC placed on Tuesday and very optimistic about overall goal improvement and truly healing. 1150 case is reviewed with ASTON Veliz who says she will help with management of the GI bleed if admitted to [facility]. Then talked with Dr. Richardson, reviewed findings and concerns and she excepted care to their ICU. At this point waiting for a bed to arrange for transport. 1155pm [facility] transfer [place] calls back [place] could possibly have a bed but with [facility] excepting will not pursue at this time. 1153pm patient remains altered, blood pressure is up slightly and heart rate down slightly after the 1st unit of blood and FFP given additional lactates and H&H currently pending. Will update her son on findings, care and plan. 1214 most recent lactate is 4.2. This is drawn prior to the packed red cells, 500 cc of LR bolus and fresh frozen plasma. At this point her heart rate is from the 110 range down to 85 and blood pressure is 114/72. 1218 again dropping pressure (85/52). Will transfuse another L of packed cells, recheck h/h prior to starting pressors. 0100 transport here to take her to [facility] ICU for continued care Orders Ordered: Discontinued Medications Sodium Chloride (Normal Saline 0.9%) 1,000 mls @ 1,000 mls/hr IV BOLUS ONE Stop: 01/18/20 16:37 Last Infusion: 01/18/20 17:34 Dose: 0 mls/hr Documented by: Admin: 01/18/20 15:54 Dose: 1,000 mls/hr Documented by: JAD Lactated Ringer's (Lactated Ringers) 1,496.85 mls @ 498.95 mls/hr 30 ml/kg infuse over 3 hr (1496.85 ml) IV NOW ONE Stop: 01/18/20 19:22 Last Infusion: 01/18/20 20:11 Dose: 0 mls/hr Documented by: Infusion: 01/18/20 20:10 Dose: 498.95 mls/hr Documented by: Admin: 01/18/20 17:25 Dose: 498.95 mls/hr Documented by: KIANNA Piperacillin/Tazobactam/Dextrose (Zosyn) 3.375 gm in 50 mls @ 100 mls/hr IV NOW ONE Stop: 01/18/20 16:54 Last Infusion: 01/18/20 20:48 Dose: 0 mls/hr Documented by: Admin: 01/18/20 20:06 Dose: 100 mls/hr Documented by: KIANNA Vancomycin HCl/Dextrose (Vancomycin) 750 mg in 150 mls @ 150 mls/hr IV NOW ONE Stop: 01/18/20 17:25 Last Infusion: 01/18/20 19:05 Dose: 0 mls/hr Documented by: Admin: 01/18/20 17:27 Dose: 150 mls/hr Documented by: KIANNA Pantoprazole Sodium 80 mg/ (Sodium Chloride) 100 mls @ 10 mls/hr IV CONT DON Last Infusion: 01/19/20 01:31 Dose: 0 mg/hr, 0 mls/hr Documented by: Admin: 01/18/20 21:18 Dose: 8 mg/hr, 10 mls/hr Documented by: KIANNA Lactated Ringer's (Lactated Ringers) 500 mls @ 1,000 mls/hr IV BOLUS ONE Stop: 01/18/20 22:21 Last Infusion: 01/18/20 22:30 Dose: 0 mls/hr Documented by: Admin: 01/18/20 22:00 Dose: 1,000 mls/hr Documented by: BEAR Lactated Ringer's (Lactated Ringers) 1,000 mls @ 150 mls/hr IV CONT DON Last Infusion: 01/19/20 01:32 Dose: 0 mls/hr Documented by: Admin: 01/18/20 23:27 Dose: 150 mls/hr Documented by: KGMANPREET Piperacillin/Tazobactam/Dextrose (Zosyn) 3.375 gm in 50 mls @ 100 mls/hr IV Q6H DON Octreotide Acetate 500 mcg/ (Sodium Chloride) 101 mls @ 5.05 mls/hr IV CONT DON; Protocol Last Infusion: 01/19/20 01:32 Dose: 0 mcg/hr, 0 mls/hr Documented by: Admin: 01/18/20 23:24 Dose: 25 mcg/hr, 5.05 mls/hr Documented by: BEAR Octreotide Acetate (Sandostatin) 50 mcg IV NOW ONE Stop: 01/18/20 22:30 Last Admin: 01/18/20 23:32 Dose: 50 mcg Documented by: BEAR Pantoprazole Sodium (Protonix) 40 mg IV NOW ONE Stop: 01/18/20 16:31 Last Admin: 01/18/20 17:23 Dose: 40 mg Documented by: KIANNA Pantoprazole Sodium (Protonix) 40 mg IV NOW ONE Stop: 01/18/20 21:00 Last Admin: 01/18/20 21:52 Dose: 40 mg Documented by: BEAR Vital Signs Vital signs: Vital Signs - 8 hr 01/18/20 18:00 01/18/20 18:30 01/18/20 19:00 Temperature Pulse Rate 105 H 105 H 103 H Respiratory Rate 25 H 26 H 26 H Blood Pressure 134/76 117/63 103/66 Pulse Oximetry 100 100 89 L 01/18/20 19:30 01/18/20 20:00 01/18/20 20:30 Temperature Pulse Rate 109 H 106 H 104 H Respiratory Rate 31 H 29 H Blood Pressure 105/58 L 107/59 L 89/52 L Pulse Oximetry 100 100 98 01/18/20 20:34 01/18/20 21:00 01/18/20 21:30 Temperature Pulse Rate 111 H 110 H 117 H Respiratory Rate 31 H Blood Pressure 93/50 L 104/62 107/57 L Pulse Oximetry 100 100 100 01/18/20 22:00 01/18/20 22:22 01/18/20 22:24 Temperature 97.5 F L Pulse Rate 119 H 118 H 115 H Respiratory Rate 32 H 34 H 18 Blood Pressure 97/52 L 97/52 L Pulse Oximetry 100 91 01/18/20 22:30 01/18/20 22:40 01/18/20 23:00 Temperature 97.7 F 97 F L Pulse Rate 115 H 115 H 108 H Respiratory Rate 33 H 25 H 27 H Blood Pressure 96/56 L 96/56 L 100/61 Pulse Oximetry 99 100 01/18/20 23:01 01/18/20 23:15 01/18/20 23:45 Temperature Pulse Rate 110 H 102 H 91 H Respiratory Rate 19 27 H 36 H Blood Pressure 100/61 102/62 114/72 Pulse Oximetry 100 100 100 10/17/20 00:00 01/19/20 00:15 01/19/20 00:17 Temperature Pulse Rate 85 81 81 Respiratory Rate 27 H 25 H 22 Blood Pressure 103/58 L 84/53 L 85/52 L Pulse Oximetry 100 99 100 01/19/20 00:30 01/19/20 00:35 01/19/20 00:46 Temperature 97.7 F Pulse Rate 91 H 93 H Respiratory Rate 22 55 H Blood Pressure 92/52 L 106/57 L Pulse Oximetry 100 100 01/19/20 01:00 01/19/20 01:07 01/19/20 01:17 Temperature 98 F Pulse Rate 92 H 88 85 Respiratory Rate 48 H 29 H 25 H Blood Pressure 121/101 H 108/51 L Pulse Oximetry 100 100 01/19/20 01:19 Temperature Pulse Rate 87 Respiratory Rate 33 H Blood Pressure 108/51 L Pulse Oximetry 100 MDM - Weakness <Niki Wong DO - Last Filed: 01/20/20 07:14> Lab Data Attestation: I reviewed the patient's lab results. Result diagrams: 01/19/20 01:25 01/18/20 15:20 Labs: Lab Results 01/18/20 01/18/20 01/18/20 Range/Units 15:20 15:20 15:20 WBC 14.9 H (4.5-11.0) X10^3/uL RBC 3.10 L (4.0-5.2) X10^6/uL Hgb 9.1 L (12.0-16.0) g/dL Hct 28.2 L (36-46) % MCV 90.9 D (80-100) fL MCH 29.3 (26-34) PG MCHC 32.2 (30-36) % RDW 20.0 H (11.6-14.8) % Plt Count 368 (150-400) X10^3/uL Neut % (Auto) 57.4 (50-75) % Lymph % (Auto) 33.6 (25-40) % Cata[place]oula % (Auto) 8.4 (3-14) % Eos % (Auto) 0.1 L (2-4) % Baso % (Auto) 0.5 (0-2) % Neut # (Auto) 8600 H (7624-4259) /uL Lymph # (Auto) 5000 H (8455-7491) /uL [place]oula # (Auto) 1300 H (0-900) /uL Eos # (Auto) 0 (0-450) /uL Baso # (Auto) 100 (0-100) /uL PT 20.0 H (10.1-12.7) SECONDS INR 1.8 H (0.9-1.3) APTT 30 D (26.4-36.2) SECONDS Sodium (137-145) mmol/L Potassium (3.4-5.1) mmol/L Chloride (98-107) mmol/L Carbon Dioxide (22-32) mmol/L BUN (7-17) mg/dL Creatinine (0.52-1.04) mg/dL Estimated GFR (>60) mL/min BUN/Creatinine Ratio (6-22) Glucose (80-110) mg/dL Lactate (0.7-2.1) mmol/L Calcium (8.4-10.2) mg/dL Total Bilirubin (0.2-1.3) mg/dL AST (14-36) IU/L ALT (<35) IU/L Alkaline Phosphatase (38-126) U/L Ammonia (9-30) umol/L Total Protein (6.3-8.2) g/dL Albumin (3.5-5.0) g/dL Globulin (1.7-4.1) g/dL Albumin/Globulin Ratio (1.0-2.8) Lipase (23-300) U/L Procalcitonin 0.06 (<0.5) ng/mL COVID-19 PCR (Negative) Blood Type Antibody Screen Crossmatch 01/18/20 01/18/20 01/18/20 Range/Units 15:20 15:20 15:20 WBC (4.5-11.0) X10^3/uL RBC (4.0-5.2) X10^6/uL Hgb (12.0-16.0) g/dL Hct (36-46) % MCV (80-100) fL MCH (26-34) PG MCHC (30-36) % RDW (11.6-14.8) % Plt Count (150-400) X10^3/uL Neut % (Auto) (50-75) % Lymph % (Auto) (25-40) % [place] % (Auto) (3-14) % Eos % (Auto) (2-4) % Baso % (Auto) (0-2) % Neut # (Auto) (1020-3562) /uL Lymph # (Auto) (1824-4964) /uL [place] # (Auto) (0-900) /uL Eos # (Auto) (0-450) /uL Baso # (Auto) (0-100) /uL PT (10.1-12.7) SECONDS INR (0.9-1.3) APTT (26.4-36.2) SECONDS Sodium 138 (137-145) mmol/L Potassium 4.5 (3.4-5.1) mmol/L Chloride 109 H (98-107) mmol/L Carbon Dioxide 19 L (22-32) mmol/L BUN 53 H (7-17) mg/dL Creatinine 0.54 (0.52-1.04) mg/dL Estimated GFR > 60.0 (>60) mL/min BUN/Creatinine Ratio 98.1 H (6-22) Glucose 101 (80-110) mg/dL Lactate 6.1 H* (0.7-2.1) mmol/L Calcium 9.0 (8.4-10.2) mg/dL Total Bilirubin 0.5 (0.2-1.3) mg/dL AST 41 H (14-36) IU/L ALT 26 (<35) IU/L Alkaline Phosphatase 74 (38-126) U/L Ammonia (9-30) umol/L Total Protein 6.6 (6.3-8.2) g/dL Albumin 3.3 L (3.5-5.0) g/dL Globulin 3.3 (1.7-4.1) g/dL Albumin/Globulin Ratio 1.0 (1.0-2.8) Lipase 83 86 (23-300) U/L Procalcitonin (<0.5) ng/mL COVID-19 PCR (Negative) Blood Type Antibody Screen Crossmatch 01/18/20 01/18/20 01/18/20 Range/Units 16:50 18:35 19:12 WBC (4.5-11.0) X10^3/uL RBC (4.0-5.2) X10^6/uL Hgb 7.4 L (12.0-16.0) g/dL Hct 22.8 L (36-46) % MCV (80-100) fL MCH (26-34) PG MCHC (30-36) % RDW (11.6-14.8) % Plt Count (150-400) X10^3/uL Neut % (Auto) (50-75) % Lymph % (Auto) (25-40) % [place] % (Auto) (3-14) % Eos % (Auto) (2-4) % Baso % (Auto) (0-2) % Neut # (Auto) (2873-6601) /uL Lymph # (Auto) (5185-6107) /uL [place] # (Auto) (0-900) /uL Eos # (Auto) (0-450) /uL Baso # (Auto) (0-100) /uL PT (10.1-12.7) SECONDS INR (0.9-1.3) APTT (26.4-36.2) SECONDS Sodium (137-145) mmol/L Potassium (3.4-5.1) mmol/L Chloride (98-107) mmol/L Carbon Dioxide (22-32) mmol/L BUN (7-17) mg/dL Creatinine (0.52-1.04) mg/dL Estimated GFR (>60) mL/min BUN/Creatinine Ratio (6-22) Glucose (80-110) mg/dL Lactate 6.2 H* 4.0 H (0.7-2.1) mmol/L Calcium (8.4-10.2) mg/dL Total Bilirubin (0.2-1.3) mg/dL AST (14-36) IU/L ALT (<35) IU/L Alkaline Phosphatase (38-126) U/L Ammonia (9-30) umol/L Total Protein (6.3-8.2) g/dL Albumin (3.5-5.0) g/dL Globulin (1.7-4.1) g/dL Albumin/Globulin Ratio (1.0-2.8) Lipase (23-300) U/L Procalcitonin (<0.5) ng/mL COVID-19 PCR (Negative) Blood Type Antibody Screen Crossmatch 01/18/20 01/18/20 01/18/20 Range/Units 19:21 19:57 20:43 WBC (4.5-11.0) X10^3/uL RBC (4.0-5.2) X10^6/uL Hgb (12.0-16.0) g/dL Hct (36-46) % MCV (80-100) fL MCH (26-34) PG MCHC (30-36) % RDW (11.6-14.8) % Plt Count (150-400) X10^3/uL Neut % (Auto) (50-75) % Lymph % (Auto) (25-40) % [place] % (Auto) (3-14) % Eos % (Auto) (2-4) % Baso % (Auto) (0-2) % Neut # (Auto) (4425-6382) /uL Lymph # (Auto) (6149-7192) /uL [place] # (Auto) (0-900) /uL Eos # (Auto) (0-450) /uL Baso # (Auto) (0-100) /uL PT (10.1-12.7) SECONDS INR (0.9-1.3) APTT (26.4-36.2) SECONDS Sodium (137-145) mmol/L Potassium (3.4-5.1) mmol/L Chloride (98-107) mmol/L Carbon Dioxide (22-32) mmol/L BUN (7-17) mg/dL Creatinine (0.52-1.04) mg/dL Estimated GFR (>60) mL/min BUN/Creatinine Ratio (6-22) Glucose (80-110) mg/dL Lactate 3.6 H (0.7-2.1) mmol/L Calcium (8.4-10.2) mg/dL Total Bilirubin (0.2-1.3) mg/dL AST (14-36) IU/L ALT (<35) IU/L Alkaline Phosphatase (38-126) U/L Ammonia 10 (9-30) umol/L Total Protein (6.3-8.2) g/dL Albumin (3.5-5.0) g/dL Globulin (1.7-4.1) g/dL Albumin/Globulin Ratio (1.0-2.8) Lipase (23-300) U/L Procalcitonin (<0.5) ng/mL COVID-19 PCR Negative (Negative) Blood Type Antibody Screen Crossmatch 01/18/20 01/18/20 01/19/20 Range/Units 21:20 23:20 01:25 WBC (4.5-11.0) X10^3/uL RBC (4.0-5.2) X10^6/uL Hgb 9.4 L (12.0-16.0) g/dL Hct 27.9 L (36-46) % MCV (80-100) fL MCH (26-34) PG MCHC (30-36) % RDW (11.6-14.8) % Plt Count (150-400) X10^3/uL Neut % (Auto) (50-75) % Lymph % (Auto) (25-40) % [place] % (Auto) (3-14) % Eos % (Auto) (2-4) % Baso % (Auto) (0-2) % Neut # (Auto) (0802-7496) /uL Lymph # (Auto) (5622-2796) /uL [place] # (Auto) (0-900) /uL Eos # (Auto) (0-450) /uL Baso # (Auto) (0-100) /uL PT (10.1-12.7) SECONDS INR (0.9-1.3) APTT (26.4-36.2) SECONDS Sodium (137-145) mmol/L Potassium (3.4-5.1) mmol/L Chloride (98-107) mmol/L Carbon Dioxide (22-32) mmol/L BUN (7-17) mg/dL Creatinine (0.52-1.04) mg/dL Estimated GFR (>60) mL/min BUN/Creatinine Ratio (6-22) Glucose (80-110) mg/dL Lactate 4.2 H* (0.7-2.1) mmol/L Calcium (8.4-10.2) mg/dL Total Bilirubin (0.2-1.3) mg/dL AST (14-36) IU/L ALT (<35) IU/L Alkaline Phosphatase (38-126) U/L Ammonia (9-30) umol/L Total Protein (6.3-8.2) g/dL Albumin (3.5-5.0) g/dL Globulin (1.7-4.1) g/dL Albumin/Globulin Ratio (1.0-2.8) Lipase (23-300) U/L Procalcitonin (<0.5) ng/mL COVID-19 PCR (Negative) Blood Type O Positive Antibody Screen Negative Crossmatch See Detail Point of Care Testing Test Results Negative Glucose POC 129 Urine Dip Bedside Urine Glucose Negative Bedside Urine Bilirubin - Negative Bedside Urine Ketone - Negative Urine Specific Vanderbilt 1.010 Bedside Urine Occult Blood + Bedside Urine pH 6 Bedside Urine Protein - Negative Bedside Urine Urobilinogen +/- 1mg Bedside Urine Nitrite - Negative Bedside Urine Leukocytes - Negative Esterase Imaging Data CT scan - abdomen/pelvis: Radiologist Impression: PROCEDURE: CT ABDOMEN PELVIS W CON INDICATIONS: ab pain nausea TECHNIQUE: After the administration of intravenous contrast, 5 mm thick sections acquired from the diaphragm to the symphysis. 5 mm coronal and sagittal reformats were acquired. For radiation dose reduction, the following was used: automated exposure control, adjustment of mA and/or kV according to patient size. COMPARISON: [facility], CT, CT ABDOMEN PELVIS W CON, 05/25/2019, 12:14. FINDINGS: Image quality: Excellent. ABDOMEN: Lung bases: Lung bases are clear. Heart size is normal. Bilateral mammoplasties. Solid organs: Cirrhotic liver. No focal liver mass identified. Gallbladder is contracted. Biliary system is non dilated. Pancreas enhances normally. Spleen is normal in size and enhancement. No adrenal nodules. Kidneys demonstrate normal size and enhancement, without hydronephrosis. Peritoneum and bowel: Bowel loops demonstrate normal wall thickness and caliber. No free fluid or air. Again noted is a posterior decubitus ulcer which may communicate with the rectum, improved since the previous study. Nodes and vessels: No retroperitoneal or mesenteric adenopathy by size criter ia. Aorta and inferior vena cava are normal in size. Miscellaneous: No ventral hernias. PELVIS: Genitourinary: A Vo catheter is present in the bladder. There is a small amount of air present within the bladder. There is bladder wall thickening. The bladder is partially decompressed. Miscellaneous: No inguinal hernias or adenopathy. A large sacral decubitus ulcer has developed which extends to the sacrococcygeal region, with suspected osteomyelitis of the tip of the sacrum. There is development of a sacrococcygeal fracture since the prior study. Uterus is surgically absent. Bones: No suspicious bony lesions. No vertebral body compression fractures. Previous T10 through T12 posterior laminectomy and posterolateral fusion. IMPRESSION: 1. Previously identified posterior ulcer with possible communication to the rectum, improved. 2. Interval development of large presacral decubitus ulcer with probable osteomyelitis involving the distal sacrum. There is also a sacrococcygeal fracture which may be relatively chronic. 3. Cirrhosis. 4. Chronic bladder wall thickening. Dictated by: Kael Colvin M.D. on 01/18/2020 at 17:19 Chest x-ray: Radiologist Impression: PROCEDURE: XR CHEST 1V INDICATIONS: suspected sepsis TECHNIQUE: One view of the chest was acquired. COMPARISON: [facility], , XR CHEST 1V, 05/25/2019, 11:44. FINDINGS: Surgical changes and devices: Mathis rods within the lower thoracic spine are present which are incompletely visualized. Lungs and pleura: Lungs are clear. No pleural effusions or pneumothorax. Mediastinum: Mediastinal contours appear normal. Heart size is normal. Bones and chest wall: No suspicious bony lesions. Overlying soft tissues appear unremarkable. IMPRESSION: No acute process. Dictated by: Wicho Wkaefield M.D. on 01/18/2020 at 16:09 Approved by: Wicho Wakefield M.D. on 01/18/2020 at 16:10 ECG Data Attestation: I personally reviewed and interpreted this ECG as follows: Prior ECG tracings: available for review Interpretation: Sinus tachycardia rate 118 p.r. interval 142 QRS [address] changes MDM Narrative Medical decision making narrative: Patient does have decreasing mental status but is alert. I did speak with off hospitalist who cared for her last time she was transferred to every it concern for need for plastic surgery. Hospitalist does not want to accept her at here at this hospital for that reason. Patient is tachycardic with decreasing mental status mild elevation of leukocytosis and significantly elevated lactic acid of 6.6. No obvious source of infection is identified. However she is started on Zosyn and vancomycin. Her wound does not appear infected at this time. She is guaiac positive with decreasing hemoglobin and hematocrit. January 09 she had 12.7/38.2 and today is 9.1/28.2. Previously in November she had hemoglobin 7.5/23.7. Protonix given. Signed out to Dr. Smalls, <Mary Teran, [facility] - Last Filed: 01/18/20 19:28> Lab Data Labs: Lab Results 01/18/20 01/18/20 01/18/20 Range/Units 15:20 15:20 15:20 WBC 14.9 H (4.5-11.0) X10^3/uL RBC 3.10 L (4.0-5.2) X10^6/uL Hgb 9.1 L (12.0-16.0) g/dL Hct 28.2 L (36-46) % MCV 90.9 D (80-100) fL MCH 29.3 (26-34) PG MCHC 32.2 (30-36) % RDW 20.0 H (11.6-14.8) % Plt Count 368 (150-400) X10^3/uL Neut % (Auto) 57.4 (50-75) % Lymph % (Auto) 33.6 (25-40) % [place] % (Auto) 8.4 (3-14) % Eos % (Auto) 0.1 L (2-4) % Baso % (Auto) 0.5 (0-2) % Neut # (Auto) 8600 H (4819-5258) /uL Lymph # (Auto) 5000 H (4394-7552) /uL [place] # (Auto) 1300 H (0-900) /uL Eos # (Auto) 0 (0-450) /uL Baso # (Auto) 100 (0-100) /uL PT 20.0 H (10.1-12.7) SECONDS INR 1.8 H (0.9-1.3) APTT 30 D (26.4-36.2) SECONDS Sodium (137-145) mmol/L Potassium (3.4-5.1) mmol/L Chloride (98-107) mmol/L Carbon Dioxide (22-32) mmol/L BUN (7-17) mg/dL Creatinine (0.52-1.04) mg/dL Estimated GFR (>60) mL/min BUN/Creatinine Ratio (6-22) Glucose (80-110) mg/dL Lactate (0.7-2.1) mmol/L Calcium (8.4-10.2) mg/dL Total Bilirubin (0.2-1.3) mg/dL AST (14-36) IU/L ALT (<35) IU/L Alkaline Phosphatase (38-126) U/L Ammonia (9-30) umol/L Total Protein (6.3-8.2) g/dL Albumin (3.5-5.0) g/dL Globulin (1.7-4.1) g/dL Albumin/Globulin Ratio (1.0-2.8) Lipase (23-300) U/L Procalcitonin 0.06 (<0.5) ng/mL COVID-19 PCR (Negative) Blood Type Antibody Screen Crossmatch 01/18/20 01/18/20 01/18/20 Range/Units 15:20 15:20 15:20 WBC (4.5-11.0) X10^3/uL RBC (4.0-5.2) X10^6/uL Hgb (12.0-16.0) g/dL Hct (36-46) % MCV (80-100) fL MCH (26-34) PG MCHC (30-36) % RDW (11.6-14.8) % Plt Count (150-400) X10^3/uL Neut % (Auto) (50-75) % Lymph % (Auto) (25-40) % [place] % (Auto) (3-14) % Eos % (Auto) (2-4) % Baso % (Auto) (0-2) % Neut # (Auto) (6616-9422) /uL Lymph # (Auto) (5646-3019) /uL [place] # (Auto) (0-900) /uL Eos # (Auto) (0-450) /uL Baso # (Auto) (0-100) /uL PT (10.1-12.7) SECONDS INR (0.9-1.3) APTT (26.4-36.2) SECONDS Sodium 138 (137-145) mmol/L Potassium 4.5 (3.4-5.1) mmol/L Chloride 109 H (98-107) mmol/L Carbon Dioxide 19 L (22-32) mmol/L BUN 53 H (7-17) mg/dL Creatinine 0.54 (0.52-1.04) mg/dL Estimated GFR > 60.0 (>60) mL/min BUN/Creatinine Ratio 98.1 H (6-22) Glucose 101 (80-110) mg/dL Lactate 6.1 H* (0.7-2.1) mmol/L Calcium 9.0 (8.4-10.2) mg/dL Total Bilirubin 0.5 (0.2-1.3) mg/dL AST 41 H (14-36) IU/L ALT 26 (<35) IU/L Alkaline Phosphatase 74 (38-126) U/L Ammonia (9-30) umol/L Total Protein 6.6 (6.3-8.2) g/dL Albumin 3.3 L (3.5-5.0) g/dL Globulin 3.3 (1.7-4.1) g/dL Albumin/Globulin Ratio 1.0 (1.0-2.8) Lipase 83 86 (23-300) U/L Procalcitonin (<0.5) ng/mL COVID-19 PCR (Negative) Blood Type Antibody Screen Crossmatch 01/18/20 01/18/20 01/18/20 Range/Units 16:50 18:35 19:12 WBC (4.5-11.0) X10^3/uL RBC (4.0-5.2) X10^6/uL Hgb 7.4 L (12.0-16.0) g/dL Hct 22.8 L (36-46) % MCV (80-100) fL MCH (26-34) PG MCHC (30-36) % RDW (11.6-14.8) % Plt Count (150-400) X10^3/uL Neut % (Auto) (50-75) % Lymph % (Auto) (25-40) % [place] % (Auto) (3-14) % Eos % (Auto) (2-4) % Baso % (Auto) (0-2) % Neut # (Auto) (1065-4683) /uL Lymph # (Auto) (5539-4520) /uL [place] # (Auto) (0-900) /uL Eos # (Auto) (0-450) /uL Baso # (Auto) (0-100) /uL PT (10.1-12.7) SECONDS INR (0.9-1.3) APTT (26.4-36.2) SECONDS Sodium (137-145) mmol/L Potassium (3.4-5.1) mmol/L Chloride (98-107) mmol/L Carbon Dioxide (22-32) mmol/L BUN (7-17) mg/dL Creatinine (0.52-1.04) mg/dL Estimated GFR (>60) mL/min BUN/Creatinine Ratio (6-22) Glucose (80-110) mg/dL Lactate 6.2 H* 4.0 H (0.7-2.1) mmol/L Calcium (8.4-10.2) mg/dL Total Bilirubin (0.2-1.3) mg/dL AST (14-36) IU/L ALT (<35) IU/L Alkaline Phosphatase (38-126) U/L Ammonia (9-30) umol/L Total Protein (6.3-8.2) g/dL Albumin (3.5-5.0) g/dL Globulin (1.7-4.1) g/dL Albumin/Globulin Ratio (1.0-2.8) Lipase (23-300) U/L Procalcitonin (<0.5) ng/mL COVID-19 PCR (Negative) Blood Type Antibody Screen Crossmatch 01/18/20 01/18/20 01/18/20 Range/Units 19:21 19:57 20:43 WBC (4.5-11.0) X10^3/uL RBC (4.0-5.2) X10^6/uL Hgb (12.0-16.0) g/dL Hct (36-46) % MCV (80-100) fL MCH (26-34) PG MCHC (30-36) % RDW (11.6-14.8) % Plt Count (150-400) X10^3/uL Neut % (Auto) (50-75) % Lymph % (Auto) (25-40) % [place] % (Auto) (3-14) % Eos % (Auto) (2-4) % Baso % (Auto) (0-2) % Neut # (Auto) (6497-7778) /uL Lymph # (Auto) (0840-1312) /uL [place] # (Auto) (0-900) /uL Eos # (Auto) (0-450) /uL Baso # (Auto) (0-100) /uL PT (10.1-12.7) SECONDS INR (0.9-1.3) APTT (26.4-36.2) SECONDS Sodium (137-145) mmol/L Potassium (3.4-5.1) mmol/L Chloride (98-107) mmol/L Carbon Dioxide (22-32) mmol/L BUN (7-17) mg/dL Creatinine (0.52-1.04) mg/dL Estimated GFR (>60) mL/min BUN/Creatinine Ratio (6-22) Glucose (80-110) mg/dL Lactate 3.6 H (0.7-2.1) mmol/L Calcium (8.4-10.2) mg/dL Total Bilirubin (0.2-1.3) mg/dL AST (14-36) IU/L ALT (<35) IU/L Alkaline Phosphatase (38-126) U/L Ammonia 10 (9-30) umol/L Total Protein (6.3-8.2) g/dL Albumin (3.5-5.0) g/dL Globulin (1.7-4.1) g/dL Albumin/Globulin Ratio (1.0-2.8) Lipase (23-300) U/L Procalcitonin (<0.5) ng/mL COVID-19 PCR Negative (Negative) Blood Type Antibody Screen Crossmatch 01/18/20 01/18/20 01/19/20 Range/Units 21:20 23:20 01:25 WBC (4.5-11.0) X10^3/uL RBC (4.0-5.2) X10^6/uL Hgb 9.4 L (12.0-16.0) g/dL Hct 27.9 L (36-46) % MCV (80-100) fL MCH (26-34) PG MCHC (30-36) % RDW (11.6-14.8) % Plt Count (150-400) X10^3/uL Neut % (Auto) (50-75) % Lymph % (Auto) (25-40) % [place] % (Auto) (3-14) % Eos % (Auto) (2-4) % Baso % (Auto) (0-2) % Neut # (Auto) (2580-0329) /uL Lymph # (Auto) (3556-4805) /uL [place] # (Auto) (0-900) /uL Eos # (Auto) (0-450) /uL Baso # (Auto) (0-100) /uL PT (10.1-12.7) SECONDS INR (0.9-1.3) APTT (26.4-36.2) SECONDS Sodium (137-145) mmol/L Potassium (3.4-5.1) mmol/L Chloride (98-107) mmol/L Carbon Dioxide (22-32) mmol/L BUN (7-17) mg/dL Creatinine (0.52-1.04) mg/dL Estimated GFR (>60) mL/min BUN/Creatinine Ratio (6-22) Glucose (80-110) mg/dL Lactate 4.2 H* (0.7-2.1) mmol/L Calcium (8.4-10.2) mg/dL Total Bilirubin (0.2-1.3) mg/dL AST (14-36) IU/L ALT (<35) IU/L Alkaline Phosphatase (38-126) U/L Ammonia (9-30) umol/L Total Protein (6.3-8.2) g/dL Albumin (3.5-5.0) g/dL Globulin (1.7-4.1) g/dL Albumin/Globulin Ratio (1.0-2.8) Lipase (23-300) U/L Procalcitonin (<0.5) ng/mL COVID-19 PCR (Negative) Blood Type O Positive Antibody Screen Negative Crossmatch See Detail Point of Care Testing Test Results Negative Glucose POC 129 Urine Dip Bedside Urine Glucose Negative Bedside Urine Bilirubin - Negative Bedside Urine Ketone - Negative Urine Specific [place]bilt 1.010 Bedside Urine Occult Blood + Bedside Urine pH 6 Bedside Urine Protein - Negative Bedside Urine Urobilinogen +/- 1mg Bedside Urine Nitrite - Negative Bedside Urine Leukocytes - Negative Esterase <Serenity Smalls MD - Last Filed: 01/19/20 02:06> Medical Records Attestation: I reviewed the patient's medical records. Lab Data Attestation: I reviewed the patient's lab results. Labs: Lab Results 01/18/20 01/18/20 01/18/20 Range/Units 15:20 15:20 15:20 WBC 14.9 H (4.5-11.0) X10^3/uL RBC 3.10 L (4.0-5.2) X10^6/uL Hgb 9.1 L (12.0-16.0) g/dL Hct 28.2 L (36-46) % MCV 90.9 D (80-100) fL MCH 29.3 (26-34) PG MCHC 32.2 (30-36) % RDW 20.0 H (11.6-14.8) % Plt Count 368 (150-400) X10^3/uL Neut % (Auto) 57.4 (50-75) % Lymph % (Auto) 33.6 (25-40) % [place] % (Auto) 8.4 (3-14) % Eos % (Auto) 0.1 L (2-4) % Baso % (Auto) 0.5 (0-2) % Neut # (Auto) 8600 H (1383-8555) /uL Lymph # (Auto) 5000 H (7679-1299) /uL [place] # (Auto) 1300 H (0-900) /uL Eos # (Auto) 0 (0-450) /uL Baso # (Auto) 100 (0-100) /uL PT 20.0 H (10.1-12.7) SECONDS INR 1.8 H (0.9-1.3) APTT 30 D (26.4-36.2) SECONDS Sodium (137-145) mmol/L Potassium (3.4-5.1) mmol/L Chloride (98-107) mmol/L Carbon Dioxide (22-32) mmol/L BUN (7-17) mg/dL Creatinine (0.52-1.04) mg/dL Estimated GFR (>60) mL/min BUN/Creatinine Ratio (6-22) Glucose (80-110) mg/dL Lactate (0.7-2.1) mmol/L Calcium (8.4-10.2) mg/dL Total Bilirubin (0.2-1.3) mg/dL AST (14-36) IU/L ALT (<35) IU/L Alkaline Phosphatase (38-126) U/L Ammonia (9-30) umol/L Total Protein (6.3-8.2) g/dL Albumin (3.5-5.0) g/dL Globulin (1.7-4.1) g/dL Albumin/Globulin Ratio (1.0-2.8) Lipase (23-300) U/L Procalcitonin 0.06 (<0.5) ng/mL COVID-19 PCR (Negative) Blood Type Antibody Screen Crossmatch 01/18/20 01/18/20 01/18/20 Range/Units 15:20 15:20 15:20 WBC (4.5-11.0) X10^3/uL RBC (4.0-5.2) X10^6/uL Hgb (12.0-16.0) g/dL Hct (36-46) % MCV (80-100) fL MCH (26-34) PG MCHC (30-36) % RDW (11.6-14.8) % Plt Count (150-400) X10^3/uL Neut % (Auto) (50-75) % Lymph % (Auto) (25-40) % [place] % (Auto) (3-14) % Eos % (Auto) (2-4) % Baso % (Auto) (0-2) % Neut # (Auto) (0557-4248) /uL Lymph # (Auto) (3852-4210) /uL [place] # (Auto) (0-900) /uL Eos # (Auto) (0-450) /uL Baso # (Auto) (0-100) /uL PT (10.1-12.7) SECONDS INR (0.9-1.3) APTT (26.4-36.2) SECONDS Sodium 138 (137-145) mmol/L Potassium 4.5 (3.4-5.1) mmol/L Chloride 109 H (98-107) mmol/L Carbon Dioxide 19 L (22-32) mmol/L BUN 53 H (7-17) mg/dL Creatinine 0.54 (0.52-1.04) mg/dL Estimated GFR > 60.0 (>60) mL/min BUN/Creatinine Ratio 98.1 H (6-22) Glucose 101 (80-110) mg/dL Lactate 6.1 H* (0.7-2.1) mmol/L Calcium 9.0 (8.4-10.2) mg/dL Total Bilirubin 0.5 (0.2-1.3) mg/dL AST 41 H (14-36) IU/L ALT 26 (<35) IU/L Alkaline Phosphatase 74 (38-126) U/L Ammonia (9-30) umol/L Total Protein 6.6 (6.3-8.2) g/dL Albumin 3.3 L (3.5-5.0) g/dL Globulin 3.3 (1.7-4.1) g/dL Albumin/Globulin Ratio 1.0 (1.0-2.8) Lipase 83 86 (23-300) U/L Procalcitonin (<0.5) ng/mL COVID-19 PCR (Negative) Blood Type Antibody Screen Crossmatch 01/18/20 01/18/20 01/18/20 Range/Units 16:50 18:35 19:12 WBC (4.5-11.0) X10^3/uL RBC (4.0-5.2) X10^6/uL Hgb 7.4 L (12.0-16.0) g/dL Hct 22.8 L (36-46) % MCV (80-100) fL MCH (26-34) PG MCHC (30-36) % RDW (11.6-14.8) % Plt Count (150-400) X10^3/uL Neut % (Auto) (50-75) % Lymph % (Auto) (25-40) % [place] % (Auto) (3-14) % Eos % (Auto) (2-4) % Baso % (Auto) (0-2) % Neut # (Auto) (2836-7542) /uL Lymph # (Auto) (7402-7143) /uL [place] # (Auto) (0-900) /uL Eos # (Auto) (0-450) /uL Baso # (Auto) (0-100) /uL PT (10.1-12.7) SECONDS INR (0.9-1.3) APTT (26.4-36.2) SECONDS Sodium (137-145) mmol/L Potassium (3.4-5.1) mmol/L Chloride (98-107) mmol/L Carbon Dioxide (22-32) mmol/L BUN (7-17) mg/dL Creatinine (0.52-1.04) mg/dL Estimated GFR (>60) mL/min BUN/Creatinine Ratio (6-22) Glucose (80-110) mg/dL Lactate 6.2 H* 4.0 H (0.7-2.1) mmol/L Calcium (8.4-10.2) mg/dL Total Bilirubin (0.2-1.3) mg/dL AST (14-36) IU/L ALT (<35) IU/L Alkaline Phosphatase (38-126) U/L Ammonia (9-30) umol/L Total Protein (6.3-8.2) g/dL Albumin (3.5-5.0) g/dL Globulin (1.7-4.1) g/dL Albumin/Globulin Ratio (1.0-2.8) Lipase (23-300) U/L Procalcitonin (<0.5) ng/mL COVID-19 PCR (Negative) Blood Type Antibody Screen Crossmatch 01/18/20 01/18/20 01/18/20 Range/Units 19:21 19:57 20:43 WBC (4.5-11.0) X10^3/uL RBC (4.0-5.2) X10^6/uL Hgb (12.0-16.0) g/dL Hct (36-46) % MCV (80-100) fL MCH (26-34) PG MCHC (30-36) % RDW (11.6-14.8) % Plt Count (150-400) X10^3/uL Neut % (Auto) (50-75) % Lymph % (Auto) (25-40) % [place] % (Auto) (3-14) % Eos % (Auto) (2-4) % Baso % (Auto) (0-2) % Neut # (Auto) (1192-8646) /uL Lymph # (Auto) (1489-8517) /uL [place] # (Auto) (0-900) /uL Eos # (Auto) (0-450) /uL Baso # (Auto) (0-100) /uL PT (10.1-12.7) SECONDS INR (0.9-1.3) APTT (26.4-36.2) SECONDS Sodium (137-145) mmol/L Potassium (3.4-5.1) mmol/L Chloride (98-107) mmol/L Carbon Dioxide (22-32) mmol/L BUN (7-17) mg/dL Creatinine (0.52-1.04) mg/dL Estimated GFR (>60) mL/min BUN/Creatinine Ratio (6-22) Glucose (80-110) mg/dL Lactate 3.6 H (0.7-2.1) mmol/L Calcium (8.4-10.2) mg/dL Total Bilirubin (0.2-1.3) mg/dL AST (14-36) IU/L ALT (<35) IU/L Alkaline Phosphatase (38-126) U/L Ammonia 10 (9-30) umol/L Total Protein (6.3-8.2) g/dL Albumin (3.5-5.0) g/dL Globulin (1.7-4.1) g/dL Albumin/Globulin Ratio (1.0-2.8) Lipase (23-300) U/L Procalcitonin (<0.5) ng/mL COVID-19 PCR Negative (Negative) Blood Type Antibody Screen Crossmatch 01/18/20 01/18/20 01/19/20 Range/Units 21:20 23:20 01:25 WBC (4.5-11.0) X10^3/uL RBC (4.0-5.2) X10^6/uL Hgb 9.4 L (12.0-16.0) g/dL Hct 27.9 L (36-46) % MCV (80-100) fL MCH (26-34) PG MCHC (30-36) % RDW (11.6-14.8) % Plt Count (150-400) X10^3/uL Neut % (Auto) (50-75) % Lymph % (Auto) (25-40) % [place] % (Auto) (3-14) % Eos % (Auto) (2-4) % Baso % (Auto) (0-2) % Neut # (Auto) (7243-5294) /uL Lymph # (Auto) (2315-1217) /uL [place] # (Auto) (0-900) /uL Eos # (Auto) (0-450) /uL Baso # (Auto) (0-100) /uL PT (10.1-12.7) SECONDS INR (0.9-1.3) APTT (26.4-36.2) SECONDS Sodium (137-145) mmol/L Potassium (3.4-5.1) mmol/L Chloride (98-107) mmol/L Carbon Dioxide (22-32) mmol/L BUN (7-17) mg/dL Creatinine (0.52-1.04) mg/dL Estimated GFR (>60) mL/min BUN/Creatinine Ratio (6-22) Glucose (80-110) mg/dL Lactate 4.2 H* (0.7-2.1) mmol/L Calcium (8.4-10.2) mg/dL Total Bilirubin (0.2-1.3) mg/dL AST (14-36) IU/L ALT (<35) IU/L Alkaline Phosphatase (38-126) U/L Ammonia (9-30) umol/L Total Protein (6.3-8.2) g/dL Albumin (3.5-5.0) g/dL Globulin (1.7-4.1) g/dL Albumin/Globulin Ratio (1.0-2.8) Lipase (23-300) U/L Procalcitonin (<0.5) ng/mL COVID-19 PCR (Negative) Blood Type O Positive Antibody Screen Negative Crossmatch See Detail Point of Care Testing Test Results Negative Glucose POC 129 Urine Dip Bedside Urine Glucose Negative Bedside Urine Bilirubin - Negative Bedside Urine Ketone - Negative Urine Specific [place] 1.010 Bedside Urine Occult Blood + Bedside Urine pH 6 Bedside Urine Protein - Negative Bedside Urine Urobilinogen +/- 1mg Bedside Urine Nitrite - Negative Bedside Urine Leukocytes - Negative Esterase <Serenity Smalls MD - Last Filed: 01/19/20 02:06> Critical Care Time Critical Care Time: Yes Total Critical Care Time: 127 Attestation: Pt in the department for a total of 10 hours. Mangement of acute sepsis with new GI bleed and multifactorial shock for extended period with trying to find appropriate hospital placement for her. Discharge Plan Departure Patient Disposition: [facility] Clinical Impression: Acute upper gastrointestinal bleeding, Decubitus ulcer of sacral region, stage 4 Altered mental state Qualifiers: Altered mental status type: delirium Qualified Code(s): R41.0 - Disorientation, unspecified Sepsis Qualifiers: Sepsis type: sepsis due to unspecified organism Sepsis acute organ dysfunction status: with acute organ dysfunction Severe sepsis acute organ dysfunction type: encephalopathy Severe sepsis shock status: without septic shock Qualified Code(s): A41.9 - Sepsis, unspecified organism Discharge Date/Time: 01/19/20 01:45 Prescriptions: No Action bowujoieun-wzbuinjwmdoyb-wfbm 50-325-40 mg tablet 1 tab PO DAILY PRN (Reason: pain) RF: 0 omeprazole 20 mg capsule,delayed release(DR/EC) 20 mg PO QAM RF: 0 Mavyret 100-40 mg tablet 3 tab PO QPM RF: 0 chlorhexidine gluconate [Paroex Oral Rinse] 0.12 % mouthwash 15 ml BUCCAL BID Qty: 473 RF: 0 tramadol 100 mg tablet 50 - 100 mg PO Q12H PRN (Reason: pain) Qty: 10 RF: 0 furosemide 20 mg tablet 20 mg PO DAILY RF: 0 levofloxacin 500 mg tablet 500 mg PO DAILY RF: 0 spironolactone 50 mg tablet 50 mg PO DAILY RF: 0 Referrals: Frances Savage FNP-C [Primary Care Provider] -
[2020-01-18] MEDS: SODIUM CHLORIDE 0.9% 1,000 ML 1000 ML IV (15:54)
[2020-01-18 15:59] LABS: Add Manual Diff / Slide Review NO; Basophils Absolute Auto 100 /uL (0-100); Basophils Percent Auto 0.5 % (0-2); Eosinophils Absolute Auto 0 /uL (0-450); Eosinophils Percent Auto 0.1 % (2-4); Hematocrit 28.2 % (36-46); Hemoglobin 9.1 g/dL (12.0-16.0); Lymphocytes Absolute Auto 5000 /uL (1100-4500); Lymphocytes Percent Auto 33.6 % (25-40); Mean Corpuscular HGB Conc 32.2 % (30-36); Mean Corpuscular Hemoglobin 29.3 PG (26-34); Mean Corpuscular Volume 90.9 fL (80-100); Monocytes Absolute Auto 1300 /uL (0-900); Monocytes Percent Auto 8.4 % (3-14); Neutrophils Absolute Auto 8600 /uL (1500-7000); Neutrophils Percent Auto 57.4 % (50-75); Platelet Count 368 X10^3/uL (150-400); White Blood Cell Count 14.9 X10^3/uL (4.5-11.0)
[2020-01-18 16:05] LABS: INR 1.8 (0.9-1.3)
[2020-01-18 16:07] LABS: PTT Partial Thromboplastin Tim 30 SECONDS (26.4-36.2)
[2020-01-18 16:09] LABS: Alanine Aminotransferase 26 IU/L (<35); Albumin 3.3 g/dL (3.5-5.0); Alkaline Phosphatase 74 U/L (38-126); Aspartate Aminotransferase 41 IU/L (14-36); BUN Creatinine Ratio 98.1 (6-22); Bilirubin Total 0.5 mg/dL (0.2-1.3); Blood Urea Nitrogen 53 mg/dL (7-17); Carbon Dioxide 19 mmol/L (22-32); Chloride 109 mmol/L (98-107); Estimated Glomerular Filt Rate > 60.0 mL/min (>60); Globulin 3.3 g/dL (1.7-4.1); Glucose 101 mg/dL (80-110); HEMOLYSIS 26 (0-50); Lipase 83 U/L (23-300); Potassium 4.5 mmol/L (3.4-5.1); Sodium 138 mmol/L (137-145); Total Protein 6.6 g/dL (6.3-8.2)
[2020-01-18 16:20] LABS: Lactate (Lactic Acid) 6.1 mmol/L (0.7-2.1)
--- NOTE | 2020-01-18 16:21 | PC.NURSE ---
pt is paraplegic and unable to ambulate
[2020-01-18 16:26] LABS: Procalcitonin 0.06 ng/mL (<0.5)
--- NOTE | 2020-01-18 16:28 | DI.CT.S_ITS ---
PROCEDURE: CT ABDOMEN PELVIS W CON INDICATIONS: ab pain nausea TECHNIQUE: After the administration of intravenous contrast, 5 mm thick sections acquired from the diaphragm to the symphysis. 5 mm coronal and sagittal reformats were acquired. For radiation dose reduction, the following was used: automated exposure control, adjustment of mA and/or kV according to patient size. COMPARISON: [facility], CT, CT ABDOMEN PELVIS W CON, 05/25/2019, 12:14. FINDINGS: Image quality: Excellent. ABDOMEN: Lung bases: Lung bases are clear. Heart size is normal. Bilateral mammoplasties. Solid organs: Cirrhotic liver. No focal liver mass identified. Gallbladder is contracted. Biliary system is non dilated. Pancreas enhances normally. Spleen is normal in size and enhancement. No adrenal nodules. Kidneys demonstrate normal size and enhancement, without hydronephrosis. Peritoneum and bowel: Bowel loops demonstrate normal wall thickness and caliber. No free fluid or air. Again noted is a posterior decubitus ulcer which may communicate with the rectum, improved since the previous study. Nodes and vessels: No retroperitoneal or mesenteric adenopathy by size criteria. Aorta and inferior vena cava are normal in size. Miscellaneous: No ventral hernias. PELVIS: Genitourinary: A Vo catheter is present in the bladder. There is a small amount of air present within the bladder. There is bladder wall thickening. The bladder is partially decompressed. Miscellaneous: No inguinal hernias or adenopathy. A large sacral decubitus ulcer has developed which extends to the sacrococcygeal region, with suspected osteomyelitis of the tip of the sacrum. There is development of a sacrococcygeal fracture since the prior study. Uterus is surgically absent. Bones: No suspicious bony lesions. No vertebral body compression fractures. Previous T10 through T12 posterior laminectomy and posterolateral fusion. IMPRESSION: 1. Previously identified posterior ulcer with possible communication to the rectum, improved. 2. Interval development of large presacral decubitus ulcer with probable osteomyelitis involving the distal sacrum. There is also a sacrococcygeal fracture which may be relatively chronic. 3. Cirrhosis. 4. Chronic bladder wall thickening. Dictated by: Kael Colvin M.D. on 01/18/2020 at 17:19 Approved by: Kael Colvin M.D. on 01/18/2020 at 17:30
[2020-01-18 16:44] LABS: Lipase 86 U/L (23-300)
--- NOTE | 2020-01-18 16:58 | PC.NURSE ---
notified Dr. Wong regarding critical Lactic Acid of 6.1 at 1616. Order to change Vo catheter
[2020-01-18] MEDS: PANTOPRAZOLE 40 MG VIAL IV ×2 (17:23→21:52)
[2020-01-18] MEDS: LACTATED RINGERS 498.95 ML IV (17:25)
[2020-01-18] MEDS: VANCOMYCIN 750 MG/150 ML FROZ.PIGGY 150 MG IV (17:27)
[2020-01-18 17:56] LABS: Reflexed Lactate in 2 Hours Y
[2020-01-18 18:34] LABS: Lactate 2HR (Lactic Acid Rflx) 6.2 mmol/L (0.7-2.1)
--- NOTE | 2020-01-18 18:55 | PC.NURSE ---
pt has large pressure ulcer on coccyx that is being cared for by wound care, covered with dressing. Dressing was changed earlier today.
[2020-01-18 19:39] LABS: COVID19 -Nasal RAPID Negative (Negative)
[2020-01-18 19:55] LABS: Hemoglobin 7.4 g/dL (12.0-16.0)
[2020-01-18 19:56] LABS: Hematocrit 22.8 % (36-46)
[2020-01-18] MEDS: PIPERACILLIN-TAZO 3.375 GM/50 ML FROZ.PIGGY IV (20:06)
[2020-01-18 20:15] LABS: Ammonia (NH3) 10 umol/L (9-30)
[2020-01-18 20:54] LABS: Reflexed Lactate in 2 Hours Y
[2020-01-18 21:03] LABS: Lactate (Lactic Acid) 3.6 mmol/L (0.7-2.1)
[2020-01-18] MEDS: PANTOPRAZOLE 80 MG in SODIUM CHLORIDE 0.9% 100 ML 10 ML IV (21:18)
--- NOTE | 2020-01-18 21:32 | PC.NURSE ---
Report given to FERNANDO Espinoza
--- NOTE | 2020-01-18 21:42 | DI.RAD.S_ITS ---
PROCEDURE: XR CHEST FOR PICC 1V INDICATIONS: Central line placement verification TECHNIQUE: One view of the chest was acquired. COMPARISON: [facility], , XR CHEST 1V, 01/18/2020, 15:53. FINDINGS: Surgical changes and devices: None a right IJ central line is in place, with its tip projecting to the SVC right atrial junction. Lungs and pleura: Lungs are clear. No pleural effusions or pneumothorax. Mediastinum: Mediastinal contours appear normal. Heart size is normal. Bones and chest wall: No suspicious bony lesions. Overlying soft tissues appear unremarkable. IMPRESSION: Central line in satisfactory position. Dictated by: Kael Colvin M.D. on 01/18/2020 at 22:00 Approved by: Kael Colvin M.D. on 01/18/2020 at 22:00
[2020-01-18] MEDS: LACTATED RINGERS 500 ML 1000 ML IV (22:00)
[2020-01-18 22:45] LABS: Reflexed Lactate in 2 Hours Y
[2020-01-18] MEDS: OCTREOTIDE 500 MCG in SODIUM CHLORIDE 0.9% 100 ML 5.05 ML IV (23:24)
[2020-01-18] MEDS: LACTATED RINGERS 1,000 ML 150 ML IV (23:27)
[2020-01-18] MEDS: OCTREOTIDE 100 MCG/ML VIAL 50 MCG IV (23:32)
[2020-01-18 23:42] LABS: Lactate (Lactic Acid) 4.2 mmol/L (0.7-2.1)
[2020-01-19] VITALS (10 sets, daily range): BP systolic 84–121; BP diastolic 51–101; PULSE 81–93; RESP 22–55; TEMP 36.5–36.6; O2SAT 99–100
[2020-01-19 01:26] LABS: Reflexed Lactate in 2 Hours Y
--- NOTE | 2020-01-19 01:33 | PC.NURSE ---
Patients Octreotide still running for during transfer @5.05mL/hr Protonix gtt still running @10mL/hr at transfer and LR still running at 150mL/hr at transfer
[2020-01-19 01:35] LABS: Hematocrit 27.9 % (36-46); Hemoglobin 9.4 g/dL (12.0-16.0)
== END 2020-01-19 01:45 | disposition short-term general hospital (02) ==
PROVIDERS: Emergency Medicine; Emergency Provider Emergency Medicine; PCP Nurse Practitioner
DX: K92.2 Gastrointestinal hemorrhage, unspecified (principal); L89.154 Pressure ulcer of sacral region, stage 4; A41.9 Sepsis, unspecified organism; R11.0 Nausea; R41.0 Disorientation, unspecified
CPT/HCPCS: 36415; 36430; 51701; 51705; 71045; 74177; 80053; 81003; 81025; 82140; 82962; 83605; 83690; 84145; 85014; 85018; 85025; 85610; 85730; 86850; 86900; 86901; 86927; 87040; 87635; 93005; 96361; 96365; 96366; 96367; 96368; 96375; 96376; 99285; 99291; 99292; P9016; C9113; J1642; J2354; J2543; J3370

== ENCOUNTER → 2020-01-21 13:23 | Outpatient (CLI) | payer OTHER, MEDICAID, SELFPAY ==
[2019-11-15 18:43] VITALS: BMI 16.7
== END ==
PROVIDERS: PCP Nurse Practitioner; Referring Provider Nurse Practitioner; Visit Provider Family Medicine
DX: L89.154 Pressure ulcer of sacral region, stage 4 (principal); E43 Unspecified severe protein-calorie malnutrition; M46.28 Osteomyelitis of vertebra, sacral and sacrococcygeal region; K74.69 Other cirrhosis of liver; Z86.19 Personal history of other infectious and parasitic diseases; G82.21 Paraplegia, complete
CPT/HCPCS: 99213; 99214

== ENCOUNTER → 2020-01-29 15:01 | Outpatient (CLI) | payer OTHER, MEDICAID, SELFPAY ==
[2019-11-15 18:43] VITALS: BMI 16.7
== END ==
PROVIDERS: PCP Nurse Practitioner; Referring Provider Nurse Practitioner; Visit Provider Family Medicine
DX: L89.154 Pressure ulcer of sacral region, stage 4 (principal); E43 Unspecified severe protein-calorie malnutrition; M46.28 Osteomyelitis of vertebra, sacral and sacrococcygeal region; K74.69 Other cirrhosis of liver; Z86.19 Personal history of other infectious and parasitic diseases; G82.21 Paraplegia, complete
CPT/HCPCS: 99213

== ENCOUNTER → 2020-02-12 14:35 | Outpatient (CLI) | payer OTHER, MEDICAID, SELFPAY ==
[2019-11-15 18:43] VITALS: BMI 16.7
== END ==
PROVIDERS: PCP Nurse Practitioner; Referring Provider Nurse Practitioner; Visit Provider Family Medicine
DX: L89.154 Pressure ulcer of sacral region, stage 4 (principal); E43 Unspecified severe protein-calorie malnutrition; M46.28 Osteomyelitis of vertebra, sacral and sacrococcygeal region; K74.69 Other cirrhosis of liver; Z86.19 Personal history of other infectious and parasitic diseases; G82.21 Paraplegia, complete; Z79.2 Long term (current) use of antibiotics
CPT/HCPCS: 36415; 80053; 84134; 85025; 86140; 99213

== ENCOUNTER → 2020-02-12 15:08 | Outpatient (CLI) | payer OTHER, MEDICAID, SELFPAY ==
[2019-11-15 18:43] VITALS: BMI 16.7
[2020-02-12 17:56] LABS: Alanine Aminotransferase 17 IU/L (<35); Albumin 3.4 g/dL (3.5-5.0); Albumin Globulin Ratio 1.1 (1.0-2.8); Alkaline Phosphatase 141 U/L (38-126); Aspartate Aminotransferase 27 IU/L (14-36); BUN Creatinine Ratio 25.9 (6-22); Bilirubin Total 0.4 mg/dL (0.2-1.3); Blood Urea Nitrogen 14 mg/dL (7-17); C-Reactive Protein Quant 0.6 mg/dL (<1.0); Calcium 8.6 mg/dL (8.4-10.2); Carbon Dioxide 26 mmol/L (22-32); Chloride 104 mmol/L (98-107); Estimated Glomerular Filt Rate > 60.0 mL/min (>60); Globulin 3.1 g/dL (1.7-4.1); Glucose 89 mg/dL (80-110); HEMOLYSIS < 15 (0-50); Potassium 3.8 mmol/L (3.4-5.1); Sodium 136 mmol/L (137-145); Total Protein 6.5 g/dL (6.3-8.2)
[2020-02-12 17:59] LABS: Add Manual Diff / Slide Review NO; Basophils Absolute Auto 0 /uL (0-100); Basophils Percent Auto 0.6 % (0-2); Eosinophils Absolute Auto 200 /uL (0-450); Eosinophils Percent Auto 2.6 % (2-4); Hematocrit 32.4 % (36-46); Hemoglobin 10.4 g/dL (12.0-16.0); Lymphocytes Absolute Auto 2000 /uL (1100-4500); Lymphocytes Percent Auto 26.9 % (25-40); Mean Corpuscular HGB Conc 32.1 % (30-36); Mean Corpuscular Hemoglobin 27.2 PG (26-34); Mean Corpuscular Volume 84.7 fL (80-100); Monocytes Absolute Auto 500 /uL (0-900); Monocytes Percent Auto 6.7 % (3-14); Neutrophils Absolute Auto 4800 /uL (1500-7000); Neutrophils Percent Auto 63.2 % (50-75); Platelet Count 247 X10^3/uL (150-400); Red Blood Cell Count 3.83 X10^6/uL (4.0-5.2); Red Cell Distribution Width 17.5 % (11.6-14.8); White Blood Cell Count 7.6 X10^3/uL (4.5-11.0)
[2020-02-12 18:02] LABS: Prealbumin 12.5 mg/dL (17.6-36.0)
== END ==
PROVIDERS: PCP Nurse Practitioner; Referring Provider Family Medicine; Visit Provider Family Medicine
DX: L89.154 Pressure ulcer of sacral region, stage 4 (principal); E43 Unspecified severe protein-calorie malnutrition; M46.28 Osteomyelitis of vertebra, sacral and sacrococcygeal region
CPT/HCPCS: 36415; 80053; 84134; 85025; 85651; 86140

== ENCOUNTER → 2020-02-21 15:51 | Outpatient (ROUT) | payer OTHER, MEDICAID, SELFPAY ==
[2019-11-15 18:43] VITALS: BMI 16.7
[2020-02-21 16:08] LABS: Add Manual Diff / Slide Review NO; Basophils Absolute Auto 0 /uL (0-100); Basophils Percent Auto 0.5 % (0-2); Eosinophils Absolute Auto 200 /uL (0-450); Eosinophils Percent Auto 2.5 % (2-4); Hematocrit 26.7 % (36-46); Hemoglobin 8.5 g/dL (12.0-16.0); Lymphocytes Absolute Auto 2300 /uL (1100-4500); Lymphocytes Percent Auto 35.8 % (25-40); Mean Corpuscular HGB Conc 31.8 % (30-36); Mean Corpuscular Hemoglobin 26.1 PG (26-34); Mean Corpuscular Volume 82.2 fL (80-100); Monocytes Absolute Auto 800 /uL (0-900); Neutrophils Absolute Auto 3100 /uL (1500-7000); Neutrophils Percent Auto 49.2 % (50-75); Platelet Count 230 X10^3/uL (150-400); Red Blood Cell Count 3.25 X10^6/uL (4.0-5.2); White Blood Cell Count 6.3 X10^3/uL (4.5-11.0)
[2020-02-21 16:23] LABS: Alanine Aminotransferase 13 IU/L (<35); Albumin 2.8 g/dL (3.5-5.0); Alkaline Phosphatase 118 U/L (38-126); Aspartate Aminotransferase 22 IU/L (14-36); BUN Creatinine Ratio 36.8 (6-22); Bilirubin Total 0.3 mg/dL (0.2-1.3); Blood Urea Nitrogen 14 mg/dL (7-17); C-Reactive Protein Quant 0.6 mg/dL (<1.0); Calcium 8.1 mg/dL (8.4-10.2); Carbon Dioxide 26 mmol/L (22-32); Chloride 104 mmol/L (98-107); Estimated Glomerular Filt Rate > 60.0 mL/min (>60); Globulin 2.9 g/dL (1.7-4.1); Glucose 105 mg/dL (80-110); HEMOLYSIS < 15 (0-50); Potassium 3.6 mmol/L (3.4-5.1); Sodium 133 mmol/L (137-145); Total Protein 5.7 g/dL (6.3-8.2)
== END ==
PROVIDERS: PCP Nurse Practitioner; Visit Provider Internal Medicine Infectious Disease
DX: M46.28 Osteomyelitis of vertebra, sacral and sacrococcygeal region (principal)
CPT/HCPCS: 80053; 85025; 86140

== ENCOUNTER → 2020-03-05 13:30 | Outpatient (CLI) | payer OTHER, MEDICAID, SELFPAY ==
[2019-11-15 18:43] VITALS: BMI 16.7
== END ==
PROVIDERS: PCP Nurse Practitioner; Referring Provider Nurse Practitioner; Visit Provider Family Medicine
DX: L89.154 Pressure ulcer of sacral region, stage 4 (principal); M46.28 Osteomyelitis of vertebra, sacral and sacrococcygeal region; G82.21 Paraplegia, complete
CPT/HCPCS: 97605; 99213

== ENCOUNTER → 2020-03-10 16:22 | Outpatient (CLI) | payer OTHER, MEDICAID, SELFPAY ==
[2019-11-15 18:43] VITALS: BMI 16.7
== END ==
PROVIDERS: PCP Nurse Practitioner; Referring Provider Nurse Practitioner; Visit Provider Family Medicine
DX: L89.154 Pressure ulcer of sacral region, stage 4 (principal); M46.28 Osteomyelitis of vertebra, sacral and sacrococcygeal region; K74.69 Other cirrhosis of liver; Z86.19 Personal history of other infectious and parasitic diseases; G82.21 Paraplegia, complete; Z79.2 Long term (current) use of antibiotics
CPT/HCPCS: 11042; 97605; 99212

== ENCOUNTER → 2020-03-17 15:10 | Outpatient (CLI) | payer OTHER, MEDICAID, SELFPAY ==
[2019-11-15 18:43] VITALS: BMI 16.7
== END ==
PROVIDERS: PCP Nurse Practitioner; Referring Provider Nurse Practitioner; Visit Provider Family Medicine
DX: L89.154 Pressure ulcer of sacral region, stage 4 (principal); M46.28 Osteomyelitis of vertebra, sacral and sacrococcygeal region; K74.69 Other cirrhosis of liver; Z86.19 Personal history of other infectious and parasitic diseases; G82.21 Paraplegia, complete; Z79.2 Long term (current) use of antibiotics
CPT/HCPCS: 11042; 97605

== ENCOUNTER → 2020-03-25 13:21 | Outpatient (CLI) | payer OTHER, MEDICAID, SELFPAY ==
[2019-11-15 18:43] VITALS: BMI 16.7
== END ==
PROVIDERS: PCP Nurse Practitioner; Referring Provider Nurse Practitioner; Visit Provider Family Medicine
DX: L89.154 Pressure ulcer of sacral region, stage 4 (principal)
CPT/HCPCS: 97605

== ENCOUNTER → 2020-04-17 12:54 | Outpatient (CLI) | payer OTHER, MEDICAID, SELFPAY ==
[2019-11-15 18:43] VITALS: BMI 16.7
== END ==
PROVIDERS: PCP Nurse Practitioner; Referring Provider Nurse Practitioner; Visit Provider Family Medicine
DX: L89.154 Pressure ulcer of sacral region, stage 4 (principal); M46.28 Osteomyelitis of vertebra, sacral and sacrococcygeal region; K74.69 Other cirrhosis of liver; Z86.19 Personal history of other infectious and parasitic diseases; G82.21 Paraplegia, complete; Z79.2 Long term (current) use of antibiotics
CPT/HCPCS: 97605; 99212; 99214

== ENCOUNTER → 2020-04-17 14:21 | Outpatient (CLI) | payer OTHER, MEDICAID, SELFPAY ==
[2019-11-15 18:43] VITALS: BMI 16.7
[2020-04-17 15:57] LABS: Add Manual Diff / Slide Review NO; Basophils Absolute Auto 100 /uL (0-100); Basophils Percent Auto 0.7 % (0-2); Eosinophils Absolute Auto 100 /uL (0-450); Eosinophils Percent Auto 1.7 % (2-4); Hematocrit 35.4 % (36-46); Hemoglobin 10.9 g/dL (12.0-16.0); Lymphocytes Absolute Auto 1800 /uL (1100-4500); Lymphocytes Percent Auto 23.2 % (25-40); Mean Corpuscular HGB Conc 30.9 % (30-36); Mean Corpuscular Hemoglobin 22.5 PG (26-34); Mean Corpuscular Volume 72.8 fL (80-100); Monocytes Absolute Auto 500 /uL (0-900); Neutrophils Absolute Auto 5300 /uL (1500-7000); Neutrophils Percent Auto 67.4 % (50-75); Platelet Count 251 X10^3/uL (150-400); Red Blood Cell Count 4.87 X10^6/uL (4.0-5.2); Red Cell Distribution Width 20.6 % (11.6-14.8); White Blood Cell Count 7.8 X10^3/uL (4.5-11.0)
[2020-04-17 16:03] LABS: Alanine Aminotransferase 15 IU/L (<35); Albumin 3.8 g/dL (3.5-5.0); Albumin Globulin Ratio 1.1 (1.0-2.8); Alkaline Phosphatase 114 U/L (38-126); Aspartate Aminotransferase 28 IU/L (14-36); Bilirubin Total 0.2 mg/dL (0.2-1.3); Blood Urea Nitrogen 9 mg/dL (7-17); C-Reactive Protein Quant 1.2 mg/dL (<1.0); Carbon Dioxide 26 mmol/L (22-32); Chloride 105 mmol/L (98-107); Estimated Glomerular Filt Rate > 60.0 mL/min (>60); Globulin 3.5 g/dL (1.7-4.1); Glucose 92 mg/dL (80-110); HEMOLYSIS < 15 (0-50); Potassium 4.1 mmol/L (3.4-5.1); Sodium 137 mmol/L (137-145); Total Protein 7.3 g/dL (6.3-8.2)
[2020-04-17 16:08] LABS: Prealbumin 10.8 mg/dL (17.6-36.0)
[2020-04-17 16:20] LABS: Erythrocyte Sedimentation Rate 20 MM/HR (0-20)
[2020-04-17 16:21] LABS: Anisocytosis 2+; Hypochromasia 1+; Poikilocytosis 1+
== END ==
PROVIDERS: PCP Nurse Practitioner; Referring Provider Family Medicine; Visit Provider Family Medicine
DX: L08.9 Local infection of the skin and subcutaneous tissue, unspecified (principal); M46.28 Osteomyelitis of vertebra, sacral and sacrococcygeal region
CPT/HCPCS: 36415; 80053; 84134; 85025; 85651; 86140

== ENCOUNTER → 2020-04-30 15:33 | Outpatient (CLI) | payer OTHER, MEDICAID, SELFPAY ==
[2019-11-15 18:43] VITALS: BMI 16.7
[2020-04-30 17:06] LABS: Add Manual Diff / Slide Review NO; Basophils Absolute Auto 0 /uL (0-100); Basophils Percent Auto 0.5 % (0-2); Eosinophils Absolute Auto 0 /uL (0-450); Eosinophils Percent Auto 0.6 % (2-4); Hematocrit 35.7 % (36-46); Hemoglobin 11.1 g/dL (12.0-16.0); Lymphocytes Absolute Auto 1200 /uL (1100-4500); Lymphocytes Percent Auto 15.7 % (25-40); Mean Corpuscular HGB Conc 31.1 % (30-36); Mean Corpuscular Hemoglobin 22.3 PG (26-34); Mean Corpuscular Volume 71.6 fL (80-100); Monocytes Absolute Auto 500 /uL (0-900); Monocytes Percent Auto 6.3 % (3-14); Neutrophils Absolute Auto 5700 /uL (1500-7000); Neutrophils Percent Auto 76.9 % (50-75); Platelet Count 335 X10^3/uL (150-400); Red Blood Cell Count 4.98 X10^6/uL (4.0-5.2); Red Cell Distribution Width 20.5 % (11.6-14.8); White Blood Cell Count 7.4 X10^3/uL (4.5-11.0)
[2020-04-30 17:31] LABS: HEMOLYSIS < 15 (0-50); Hypochromasia 2+; Microcytosis 2+
[2020-04-30 17:36] LABS: Alanine Aminotransferase 15 IU/L (<35); Albumin 3.6 g/dL (3.5-5.0); Albumin Globulin Ratio 1.1 (1.0-2.8); Alkaline Phosphatase 112 U/L (38-126); Aspartate Aminotransferase 27 IU/L (14-36); BUN Creatinine Ratio 20.9 (6-22); Bilirubin Total 0.4 mg/dL (0.2-1.3); Blood Urea Nitrogen 9 mg/dL (7-17); Calcium 8.7 mg/dL (8.4-10.2); Carbon Dioxide 27 mmol/L (22-32); Chloride 105 mmol/L (98-107); Estimated Glomerular Filt Rate > 60.0 mL/min (>60); Globulin 3.3 g/dL (1.7-4.1); Glucose 106 mg/dL (80-110); Potassium 3.3 mmol/L (3.4-5.1); Sodium 138 mmol/L (137-145); Total Protein 6.9 g/dL (6.3-8.2)
[2020-04-30 18:29] LABS: C-Reactive Protein Quant 1.9 mg/dL (<1.0)
[2020-04-30 18:33] LABS: Prealbumin 7.8 mg/dL (17.6-36.0)
[2020-04-30 20:34] LABS: Erythrocyte Sedimentation Rate 14 MM/HR (0-20)
== END ==
PROVIDERS: PCP Nurse Practitioner; Referring Provider Internal Medicine Infectious Disease; Visit Provider Family Medicine
DX: R19.7 Diarrhea, unspecified (principal); Z79.2 Long term (current) use of antibiotics; M46.28 Osteomyelitis of vertebra, sacral and sacrococcygeal region
CPT/HCPCS: 36415; 80053; 84134; 85025; 85651; 86140

== ENCOUNTER → 2020-04-30 15:33 | Outpatient (CLI) | payer OTHER, MEDICAID, SELFPAY ==
[2019-11-15 18:43] VITALS: BMI 16.7
== END ==
PROVIDERS: PCP Nurse Practitioner; Referring Provider Nurse Practitioner; Visit Provider Family Medicine
DX: L89.154 Pressure ulcer of sacral region, stage 4 (principal); M46.28 Osteomyelitis of vertebra, sacral and sacrococcygeal region; K74.69 Other cirrhosis of liver; Z86.19 Personal history of other infectious and parasitic diseases; G82.21 Paraplegia, complete; Z79.2 Long term (current) use of antibiotics; R19.7 Diarrhea, unspecified; T36.95XA Adverse effect of unspecified systemic antibiotic, initial encounter
CPT/HCPCS: 97605; 99214

== ENCOUNTER → 2020-05-27 14:51 | Outpatient (CLI) | payer OTHER, MEDICAID, SELFPAY ==
[2019-11-15 18:43] VITALS: BMI 16.7
[2020-05-27 15:45] LABS: Reticulocyte Count, Percent 2.8 % (1.06-2.63)
[2020-05-27 15:51] LABS: Add Manual Diff / Slide Review NO; Basophils Absolute Auto 100 /uL (0-100); Basophils Percent Auto 0.7 % (0-2); Eosinophils Absolute Auto 100 /uL (0-450); Eosinophils Percent Auto 1.2 % (2-4); Hematocrit 33.2 % (36-46); Hemoglobin 10.9 g/dL (12.0-16.0); Lymphocytes Absolute Auto 1600 /uL (1100-4500); Lymphocytes Percent Auto 17.6 % (25-40); Mean Corpuscular HGB Conc 32.9 % (30-36); Mean Corpuscular Volume 69.9 fL (80-100); Monocytes Absolute Auto 1100 /uL (0-900); Monocytes Percent Auto 12.3 % (3-14); Neutrophils Absolute Auto 6300 /uL (1500-7000); Neutrophils Percent Auto 68.2 % (50-75); Platelet Count 433 X10^3/uL (150-400); Red Blood Cell Count 4.75 X10^6/uL (4.0-5.2); White Blood Cell Count 9.3 X10^3/uL (4.5-11.0)
[2020-05-27 16:06] LABS: Alanine Aminotransferase 17 IU/L (<35); Albumin 3.4 g/dL (3.5-5.0); Albumin Globulin Ratio 0.9 (1.0-2.8); Alkaline Phosphatase 108 U/L (38-126); Anisocytosis 1+; Aspartate Aminotransferase 24 IU/L (14-36); BUN Creatinine Ratio 18.9 (6-22); Bilirubin Total 0.5 mg/dL (0.2-1.3); Blood Urea Nitrogen 7 mg/dL (7-17); C-Reactive Protein Quant 3.9 mg/dL (<1.0); Calcium 8.3 mg/dL (8.4-10.2); Carbon Dioxide 25 mmol/L (22-32); Chloride 99 mmol/L (98-107); Estimated Glomerular Filt Rate > 60.0 mL/min (>60); Globulin 3.6 g/dL (1.7-4.1); Glucose 110 mg/dL (80-110); HEMOLYSIS < 15 (0-50); Potassium 2.9 mmol/L (3.4-5.1); Sodium 131 mmol/L (137-145)
[2020-05-27 16:11] LABS: Prealbumin 6.8 mg/dL (17.6-36.0)
== END ==
PROVIDERS: PCP Nurse Practitioner; Referring Provider Family Medicine; Visit Provider Family Medicine
DX: M46.28 Osteomyelitis of vertebra, sacral and sacrococcygeal region (principal); Z79.2 Long term (current) use of antibiotics
CPT/HCPCS: 36415; 80053; 84134; 85025; 85045; 86140

== ENCOUNTER → 2020-05-27 15:17 | Outpatient (CLI) | payer OTHER, MEDICAID, SELFPAY ==
[2019-11-15 18:43] VITALS: BMI 16.7
== END ==
PROVIDERS: PCP Nurse Practitioner; Referring Provider Nurse Practitioner; Visit Provider Family Medicine
DX: L89.154 Pressure ulcer of sacral region, stage 4 (principal); M46.28 Osteomyelitis of vertebra, sacral and sacrococcygeal region; Z86.19 Personal history of other infectious and parasitic diseases; G82.21 Paraplegia, complete; R19.7 Diarrhea, unspecified; T36.95XA Adverse effect of unspecified systemic antibiotic, initial encounter; A04.71 Enterocolitis due to Clostridium difficile, recurrent; Z79.2 Long term (current) use of antibiotics
CPT/HCPCS: 36415; 80053; 84134; 85025; 85045; 86140; 99212; 99214

== ENCOUNTER → 2020-06-30 13:42 | Outpatient (CLI) | payer OTHER, MEDICAID, SELFPAY ==
[2019-11-15 18:43] VITALS: BMI 16.7
== END ==
PROVIDERS: PCP Nurse Practitioner; Referring Provider Nurse Practitioner; Visit Provider Family Medicine
DX: L89.154 Pressure ulcer of sacral region, stage 4 (principal); M46.28 Osteomyelitis of vertebra, sacral and sacrococcygeal region; K74.69 Other cirrhosis of liver; G82.21 Paraplegia, complete; E87.6 Hypokalemia; F17.200 Nicotine dependence, unspecified, uncomplicated; Z99.3 Dependence on wheelchair
CPT/HCPCS: 11042; 99214

== ENCOUNTER → 2020-07-24 14:40 | Outpatient (CLI) | payer OTHER, MEDICAID, SELFPAY ==
[2019-11-15 18:43] VITALS: BMI 16.7
== END ==
PROVIDERS: PCP Nurse Practitioner; Referring Provider Nurse Practitioner; Visit Provider Family Medicine
DX: L89.154 Pressure ulcer of sacral region, stage 4 (principal); M46.28 Osteomyelitis of vertebra, sacral and sacrococcygeal region; K74.69 Other cirrhosis of liver; Z86.19 Personal history of other infectious and parasitic diseases; G82.21 Paraplegia, complete; E46 Unspecified protein-calorie malnutrition
CPT/HCPCS: 11042; 36415; 80053; 84134; 85025; 85651; 86140; 99213

== ENCOUNTER → 2020-07-24 14:47 | Outpatient (CLI) | payer OTHER, MEDICAID, SELFPAY ==
[2019-11-15 18:43] VITALS: BMI 16.7
[2020-07-24 15:17] LABS: Add Manual Diff / Slide Review NO; Basophils Absolute Auto 0 /uL (0-100); Basophils Percent Auto 0.6 % (0-2); Eosinophils Absolute Auto 100 /uL (0-450); Eosinophils Percent Auto 1.3 % (2-4); Hematocrit 36.1 % (36-46); Hemoglobin 11.3 g/dL (12.0-16.0); Lymphocytes Absolute Auto 1500 /uL (1100-4500); Lymphocytes Percent Auto 31.1 % (25-40); Mean Corpuscular HGB Conc 31.3 % (30-36); Mean Corpuscular Hemoglobin 22.8 PG (26-34); Mean Corpuscular Volume 72.9 fL (80-100); Monocytes Absolute Auto 400 /uL (0-900); Monocytes Percent Auto 7.8 % (3-14); Neutrophils Absolute Auto 2800 /uL (1500-7000); Neutrophils Percent Auto 59.2 % (50-75); Platelet Count 223 X10^3/uL (150-400); Red Blood Cell Count 4.96 X10^6/uL (4.0-5.2); White Blood Cell Count 4.7 X10^3/uL (4.5-11.0)
[2020-07-24 15:33] LABS: Alanine Aminotransferase 15 IU/L (<35); Albumin 3.6 g/dL (3.5-5.0); Albumin Globulin Ratio 1.1 (1.0-2.8); Alkaline Phosphatase 122 U/L (38-126); Aspartate Aminotransferase 23 IU/L (14-36); BUN Creatinine Ratio 24.4 (6-22); Bilirubin Total 0.3 mg/dL (0.2-1.3); Blood Urea Nitrogen 11 mg/dL (7-17); C-Reactive Protein Quant 1.1 mg/dL (<1.0); Calcium 9.3 mg/dL (8.4-10.2); Carbon Dioxide 22 mmol/L (22-32); Chloride 107 mmol/L (98-107); Estimated Glomerular Filt Rate > 60.0 mL/min (>60); Globulin 3.4 g/dL (1.7-4.1); Glucose 96 mg/dL (80-110); HEMOLYSIS < 15 (0-50); Potassium 4.2 mmol/L (3.4-5.1); Sodium 136 mmol/L (137-145)
[2020-07-24 15:40] LABS: Prealbumin 10.9 mg/dL (17.6-36.0)
[2020-07-24 15:49] LABS: Anisocytosis 1+; Erythrocyte Sedimentation Rate 15 MM/HR (0-20); Microcytosis 1+
== END ==
PROVIDERS: PCP Nurse Practitioner; Referring Provider Family Medicine; Visit Provider Family Medicine
DX: L89.154 Pressure ulcer of sacral region, stage 4 (principal); E46 Unspecified protein-calorie malnutrition
CPT/HCPCS: 36415; 80053; 84134; 85025; 85651; 86140

== ENCOUNTER → 2021-04-07 15:43 | Outpatient (CLI) | payer OTHER, MEDICAID, SELFPAY ==
[2019-11-15 18:43] VITALS: BMI 16.7
== END ==
PROVIDERS: PCP Nurse Practitioner; Referring Provider Nurse Practitioner; Visit Provider Family Medicine
DX: L89.213 Pressure ulcer of right hip, stage 3 (principal); L89.154 Pressure ulcer of sacral region, stage 4; M86.68 Other chronic osteomyelitis, other site; G82.21 Paraplegia, complete; E46 Unspecified protein-calorie malnutrition; Z91.19 Patient's noncompliance with other medical treatment and regimen; Z72.0 Tobacco use
CPT/HCPCS: 11042; 99213; 99214

== ENCOUNTER → 2021-05-06 12:04 | Outpatient (CLI) | payer OTHER, MEDICAID, SELFPAY ==
[2021-05-20 14:45] VITALS: BMI 16.7
== END ==
PROVIDERS: PCP Nurse Practitioner; Referring Provider Nurse Practitioner; Visit Provider Family Medicine

== ENCOUNTER 2021-05-26 19:09 | Emergency (ER) | payer OTHER, MEDICAID, SELFPAY ==
[2021-05-20 14:45] VITALS: BMI 16.7
[2021-05-26] VITALS (15 sets, daily range): BP systolic 97–132; BP diastolic 56–74; PULSE 70–95; RESP 16; TEMP 36.4; O2SAT 94–99
--- NOTE | 2021-05-26 19:38 | ED.FEMALEGU ---
HPI - Female Genitourinary <Pantera Fofana PA-C - Last Filed: 05/26/21 21:06> General Chief complaint: Urogenital-Female Stated complaint: bladder infection Time Seen by Provider: 05/26/21 19:14 Source: patient Mode of arrival: Wheelchair History of Present Illness HPI Narrative: 61-year-old female with past medical history neurogenic bladder, flaccid paraplegia, hepatic cirrhosis, hepatitis C, pressure ulcers of the sacral and hip regions, soteomyelitis presents to the ED with 2 weeks of hematuria. Patient states that she has been self catheterizing for the last several decades, has had the current catheter in for about a month. Patient endorses chronic ulcers in the sacral region and right-sided hip and pain at the sites of the ulcers. Patient denies fever, chills, chest pain, shortness of breath, nausea, vomiting, abdominal pain, flank pain, lightheadedness, dizziness, syncope. Related Data Home Medications Medication Instructions Recorded Confirmed kyujznhwgh-dhifhytzurmgh-ewpwqyqk 1 tab PO DAILY PRN 12/01/18 11/15/19 50 mg-325 mg-40 mg tablet omeprazole 20 mg capsule,delayed 20 mg PO QAM 12/01/18 11/15/19 release glecaprevir 100 mg-pibrentasvir 40 3 tab PO QPM 05/25/19 11/16/19 mg tablet (Mavyret) furosemide 20 mg tablet 20 mg PO DAILY 11/15/19 11/15/19 levofloxacin 500 mg tablet 500 mg PO DAILY 11/15/19 11/15/19 spironolactone 50 mg tablet 50 mg PO DAILY 11/15/19 11/15/19 lactobacillus combination no.9 4 4,000 mmu cells PO DAILY 03/12/20 03/12/20 billion cell capsule (Adult 50 Plus Probiotic) oxycodone 10 mg tablet 10 mg PO Q6H PRN 03/12/20 03/12/20 Previous Rx's Medication Instructions Recorded chlorhexidine gluconate 0.12 % 15 ml BUCCAL BID #473 ml 07/29/19 mouthwash (Paroex Oral Rinse) ospemifene 60 mg tablet (Osphena) 60 mg PO DAILY #90 tab 03/13/20 cefuroxime axetil 500 mg tablet 500 mg PO BID #14 tab 05/26/21 Allergies Allergy/AdvReac Type Severity Reaction Status Date / Time amitriptyline Allergy Verified 03/12/20 15:10 gabapentin Allergy Verified 03/12/20 15:10 Review of Systems <Pantera Fofana PA-C - Last Filed: 05/26/21 21:06> Review of Systems ROS Unobtainable: All systems reviewed & are unremarkable except as noted in HPI and below Constitutional Constitutional: Denies chills, Denies fatigue, Denies fever(s), Denies frequent falls, Denies lethargy and Denies weakness Eyes Eyes: Denies change in vision, Denies eye discharge, Denies irritation and Denies loss of vision ENT Ears, Nose, Mouth, and Throat: Denies change in voice, Denies dizziness, Denies neck pain, Denies sore throat and Denies throat swelling Cardiovascular Cardiovascular: Denies chest pain, Denies irregular heart rhythm, Denies lightheadedness, Denies palpitations, Denies dyspnea, Denies dyspnea on exertion and Denies orthopnea Respiratory Respiratory: Denies cough, Denies dyspnea, Denies dyspnea on exertion and Denies wheezing Gastrointestinal Gastrointestinal: Denies abdominal pain, Denies change in bowel habits, Denies diarrhea, Denies nausea and Denies vomiting Genitourinary Genitourinary: Reports hematuria, Denies flank pain, Denies urinary incontinence and Denies urinary urgency Musculoskeletal Musculoskeletal: Denies back pain, Denies muscle weakness, Denies neck pain, Denies numbness and Denies tingling Integumentary/Breasts Skin/Breast: Denies pruritus, Denies erythema, Denies rash and Denies wounds Comments: Pain for pressure ulcers on sacrum, right hip Neurologic Neurologic: Denies behavioral changes, Denies confusion, Denies dizziness, Denies frequent falls, Denies loss of vision, Denies numbness, Denies tingling and Denies weakness Psychiatric Psychiatric: Denies anxiety, Denies behavioral changes, Denies confusion, Denies depression, Denies homicidal ideation and Denies suicidal ideation Endocrine Endocrine: Denies fatigue, Denies flushing and Denies palpitations Hematologic/Lymphatic Hematologic/Lymphatic: Denies easy bruising Allergic/Immunologic Allergic/Immunologic: Denies urticaria, Denies throat swelling and Denies wheezing Patient History <Pantera Fofana PA-C - Last Filed: 05/26/21 21:06> Medical History Acute hepatic encephalopathy Altered mental status Flaccid neurogenic bladder Hepatic cirrhosis Hepatitis C History of UTI Liver disease Migraine headache Osteoporosis Paraplegia Self-catheterizes urinary bladder Smoker Wheelchair bound Surgical History History of bladder surgery Hx of tubal ligation S/P fusion of thoracic spine Status post colonoscopy Status post eye surgery Status post hysterectomy Family History Brother Age: 65 Blind Grandmother Age: 102 Pancreatic cancer alcohol intake frequency: holidays/special occasions only Substance Use Type: marijuana Exam <Pantera Fofana PA-C - Last Filed: 05/26/21 21:06> Initial Vital Signs Initial Vital Signs: Vital Signs Temperature 97.6 F 05/26/21 19:10 Pulse Rate 94 H 05/26/21 19:10 Respiratory Rate 16 05/26/21 19:10 Blood Pressure 110/74 05/26/21 19:10 Pulse Oximetry 98 05/26/21 19:10 Const General: cooperative, comfortable, disheveled and frail appearing HENAR Head: normal to inspection Eyes General: appearance normal, both eyes and all related structures Neck Neck: normal visual inspection Resp Effort & Inspection: normal respiratory effort Auscultation: clear to auscultation bilaterally Cardio Rate: regular rate Rhythm: regular rhythm GI Other: Abdomen is soft, nondistended, nontender to palpation. General: No CVA tenderness Skin Other: Pressure ulcers on sacrum, right hip. Ulcer on the right hip appears erythematous with some purulent discharge. Tender to palpation Neuro General: patient alert, patient awake and patient oriented x3 Psych Appearance: grossly normal Mental Status: mental status grossly normal <Dl Blanton DO - Last Filed: 05/27/21 00:34> Initial Vital Signs Initial Vital Signs: Vital Signs Temperature 97.6 F 05/26/21 19:10 Pulse Rate 94 H 05/26/21 19:10 Respiratory Rate 16 05/26/21 19:10 Blood Pressure 110/74 05/26/21 19:10 Pulse Oximetry 98 05/26/21 19:10 Course <Pantera Fofana PA-C - Last Filed: 05/26/21 21:06> Orders Ordered: ED Orders 05/26/21 19:24 Ictotest Urine Stat Urinalysis and Microscopic Stat Urine Culture Stat 05/26/21 19:28 Consult to BASS VIOL REPAIRER - Microbiology Teacher Stat 05/26/21 20:05 CBC Auto Diff [Complete Blood Count AUTO DIFF] Stat CMP [Comprehensive Metabolic Panel] Stat CRP [C-Reactive Protein Quant] Stat ESR [Erythrocyte Sedimentation Rate] Stat Lactate (Lactic Acid) Stat Lipase Stat 05/26/21 20:39 IVP [CT abdomen pelvis wo/w con] Stat 05/26/21 20:52 Blood Culture Stat Discontinued Medications Ceftriaxone Sodium (Ceftriaxone 2,000 Mg Vial) 1,000 mg IM NOW ONE Stop: 05/26/21 20:39 Hydromorphone HCl (Hydromorphone 1 Mg Inj) 1 mg IV NOW ONE Stop: 05/26/21 22:49 Last Admin: 05/26/21 22:54 Dose: 1 mg Documented by: LORY Ceftriaxone Sodium 1,000 mg/ (Sodium Chloride) 100 mls @ 200 mls/hr IV NOW ONE Stop: 05/26/21 20:42 Last Infusion: 05/26/21 21:53 Dose: 0 mls/hr Documented by: Admin: 05/26/21 21:18 Dose: 200 mls/hr Documented by: LORY Vital Signs Vital signs: Vital Signs - 8 hr 05/26/21 19:10 05/26/21 19:18 05/26/21 19:19 Temperature 97.6 F Pulse Rate 94 H 92 H 95 H Respiratory Rate 16 Blood Pressure 110/74 110/74 Pulse Oximetry 98 98 98 05/26/21 19:30 05/26/21 20:00 05/26/21 20:30 Temperature Pulse Rate 80 70 74 Respiratory Rate Blood Pressure 110/62 99/62 97/56 L Pulse Oximetry 97 96 97 05/26/21 21:22 05/26/21 21:24 05/26/21 21:29 Temperature Pulse Rate 81 80 75 Respiratory Rate Blood Pressure 118/57 L Pulse Oximetry 94 99 98 05/26/21 21:30 05/26/21 22:00 05/26/21 22:30 Temperature Pulse Rate 74 73 86 Respiratory Rate Blood Pressure 110/57 L 108/56 L Pulse Oximetry 98 98 98 05/26/21 22:31 05/26/21 23:02 05/26/21 23:05 Temperature Pulse Rate 86 83 Respiratory Rate Blood Pressure 121/58 L 132/58 L Pulse Oximetry 99 94 99 <Dlroberto Blanton, DO - Last Filed: 05/27/21 00:34> Orders Ordered: ED Orders 05/26/21 19:24 Ictotest Urine Stat Urinalysis and Microscopic Stat Urine Culture Stat 05/26/21 19:28 Consult to BASS VIOL REPAIRER - Microbiology Teacher Stat 05/26/21 20:05 CBC Auto Diff [Complete Blood Count AUTO DIFF] Stat CMP [Comprehensive Metabolic Panel] Stat CRP [C-Reactive Protein Quant] Stat ESR [Erythrocyte Sedimentation Rate] Stat Lactate (Lactic Acid) Stat Lipase Stat 05/26/21 20:39 IVP [CT abdomen pelvis wo/w con] Stat 05/26/21 20:52 Blood Culture Stat Discontinued Medications Ceftriaxone Sodium (Ceftriaxone 2,000 Mg Vial) 1,000 mg IM NOW ONE Stop: 05/26/21 20:39 Hydromorphone HCl (Hydromorphone 1 Mg Inj) 1 mg IV NOW ONE Stop: 05/26/21 22:49 Last Admin: 05/26/21 22:54 Dose: 1 mg Documented by: LORY Ceftriaxone Sodium 1,000 mg/ (Sodium Chloride) 100 mls @ 200 mls/hr IV NOW ONE Stop: 05/26/21 20:42 Last Infusion: 05/26/21 21:53 Dose: 0 mls/hr Documented by: Admin: 05/26/21 21:18 Dose: 200 mls/hr Documented by: LORY Vital Signs Vital signs: Vital Signs - 8 hr 05/26/21 19:10 05/26/21 19:18 05/26/21 19:19 Temperature 97.6 F Pulse Rate 94 H 92 H 95 H Respiratory Rate 16 Blood Pressure 110/74 110/74 Pulse Oximetry 98 98 98 05/26/21 19:30 05/26/21 20:00 05/26/21 20:30 Temperature Pulse Rate 80 70 74 Respiratory Rate Blood Pressure 110/62 99/62 97/56 L Pulse Oximetry 97 96 97 05/26/21 21:22 05/26/21 21:24 05/26/21 21:29 Temperature Pulse Rate 81 80 75 Respiratory Rate Blood Pressure 118/57 L Pulse Oximetry 94 99 98 05/26/21 21:30 05/26/21 22:00 05/26/21 22:30 Temperature Pulse Rate 74 73 86 Respiratory Rate Blood Pressure 110/57 L 108/56 L Pulse Oximetry 98 98 98 05/26/21 22:31 05/26/21 23:02 05/26/21 23:05 Temperature Pulse Rate 86 83 Respiratory Rate Blood Pressure 121/58 L 132/58 L Pulse Oximetry 99 94 99 MDM - Female Genitourinary <Pantera Fofana PA-C - Last Filed: 05/26/21 21:06> Lab Data Lab results narrative: UA positive for UTI Result diagrams: 05/26/21 20:05 05/26/21 20:05 Labs: Lab Results 05/26/21 05/26/21 05/26/21 Range/Units 19:24 20:05 20:05 WBC 7.9 (4.5-11.0) X10^3/uL RBC 4.78 (4.0-5.2) X10^6/uL Hgb 13.9 (12.0-16.0) g/dL Hct 42.4 (36-46) % MCV 88.7 (80-100) fL MCH 29.1 (26-34) PG MCHC 32.8 (30-36) % RDW 15.7 H (11.6-14.8) % Plt Count 232 (150-400) X10^3/uL Neut % (Auto) 62.8 (50-75) % Lymph % (Auto) 27.6 (25-40) % [place] % (Auto) 7.8 (3-14) % Eos % (Auto) 1.2 L (2-4) % Baso % (Auto) 0.6 (0-2) % Neut # (Auto) 4900 (0817-5840) /uL Lymph # (Auto) 2200 (1726-0497) /uL [place] # (Auto) 600 (0-900) /uL Eos # (Auto) 100 (0-450) /uL Baso # (Auto) 0 (0-100) /uL ESR (0-20) MM/HR Sodium 135 L (137-145) mmol/L Potassium 4.3 (3.4-5.1) mmol/L Chloride 103 (98-107) mmol/L Carbon Dioxide 29 (22-32) mmol/L BUN 16 (7-17) mg/dL Creatinine 0.50 L (0.52-1.04) mg/dL Estimated GFR > 60.0 (>60) mL/min BUN/Creatinine Ratio 32.0 H (6-22) Glucose 69 L (80-110) mg/dL Lactate (0.7-2.1) mmol/L Calcium 9.2 (8.4-10.2) mg/dL Total Bilirubin 0.7 (0.2-1.3) mg/dL AST 27 (14-36) IU/L ALT 18 (<35) IU/L Alkaline Phosphatase 104 (38-126) U/L C-Reactive Protein (<1.0) mg/dL Total Protein 7.4 (6.3-8.2) g/dL Albumin 4.0 (3.5-5.0) g/dL Globulin 3.4 (1.7-4.1) g/dL Albumin/Globulin Ratio 1.2 (1.0-2.8) Lipase 46 (23-300) U/L Urine Color Red Urine Appearance Cloudy Urine pH 8.5 H (4.5-8.0) Ur Specific [place] <=1.005 (1.000-1.035) Urine Protein 3+ H (Negative) Urine Glucose (UA) Negative (Negative) g/dL Urine Ketones Trace H (NEGATIVE) Urine Occult Blood 3+ H (Negative) Urine Nitrate Positive H (Negative) Urine Bilirubin 1+ H (NEGATIVE) Ur Bilirubin Confirm Positive H (Negative) Urine Urobilinogen 1.0 (0.2) E.U./dL Ur Leukocyte Esterase 2+ H (NEGATIVE) Urine RBC 5-10/hpf H (0-5/HPF) Urine WBC 5-10/hpf H (0-5/HPF) Amorphous Sediment 3+ Urine Bacteria Many (>30) H (None) Ur Culture Indicated? Specimen cultured 05/26/21 05/26/21 05/26/21 Range/Units 20:05 20:05 20:05 WBC (4.5-11.0) X10^3/uL RBC (4.0-5.2) X10^6/uL Hgb (12.0-16.0) g/dL Hct (36-46) % MCV (80-100) fL MCH (26-34) PG MCHC (30-36) % RDW (11.6-14.8) % Plt Count (150-400) X10^3/uL Neut % (Auto) (50-75) % Lymph % (Auto) (25-40) % [place] % (Auto) (3-14) % Eos % (Auto) (2-4) % Baso % (Auto) (0-2) % Neut # (Auto) (2364-2506) /uL Lymph # (Auto) (9966-7940) /uL [place] # (Auto) (0-900) /uL Eos # (Auto) (0-450) /uL Baso # (Auto) (0-100) /uL ESR 9 (0-20) MM/HR Sodium (137-145) mmol/L Potassium (3.4-5.1) mmol/L Chloride (98-107) mmol/L Carbon Dioxide (22-32) mmol/L BUN (7-17) mg/dL Creatinine (0.52-1.04) mg/dL Estimated GFR (>60) mL/min BUN/Creatinine Ratio (6-22) Glucose (80-110) mg/dL Lactate 1.4 (0.7-2.1) mmol/L Calcium (8.4-10.2) mg/dL Total Bilirubin (0.2-1.3) mg/dL AST (14-36) IU/L ALT (<35) IU/L Alkaline Phosphatase (38-126) U/L C-Reactive Protein 2.3 H (<1.0) mg/dL Total Protein (6.3-8.2) g/dL Albumin (3.5-5.0) g/dL Globulin (1.7-4.1) g/dL Albumin/Globulin Ratio (1.0-2.8) Lipase (23-300) U/L Urine Color Urine Appearance Urine pH (4.5-8.0) Ur Specific [place] (1.000-1.035) Urine Protein (Negative) Urine Glucose (UA) (Negative) g/dL Urine Ketones (NEGATIVE) Urine Occult Blood (Negative) Urine Nitrate (Negative) Urine Bilirubin (NEGATIVE) Ur Bilirubin Confirm (Negative) Urine Urobilinogen (0.2) E.U./dL Ur Leukocyte Esterase (NEGATIVE) Urine RBC (0-5/HPF) Urine WBC (0-5/HPF) Amorphous Sediment Urine Bacteria (None) Ur Culture Indicated? MDM Narrative Medical decision making narrative: 61-year-old female with past medical history neurogenic bladder, flaccid paraplegia, hepatic cirrhosis, hepatitis C, pressure ulcers of the sacral and hip regions, osteomyeltis presents to the ED with 2 weeks of hematuria. Concern for UTI versus anemia versus urolithiasis versus bladder neoplasm vs osteomyelitis. Will order labs, lactate, UA, CT IVP, ESR, CRP. Will give toradol for pain. UA positive for UTI. Will treat with ceftriaxone 1g IV. Will reassess. <Dl Blanton DO - Last Filed: 05/27/21 00:34> Lab Data Labs: Lab Results 05/26/21 05/26/21 05/26/21 Range/Units 19:24 20:05 20:05 WBC 7.9 (4.5-11.0) X10^3/uL RBC 4.78 (4.0-5.2) X10^6/uL Hgb 13.9 (12.0-16.0) g/dL Hct 42.4 (36-46) % MCV 88.7 (80-100) fL MCH 29.1 (26-34) PG MCHC 32.8 (30-36) % RDW 15.7 H (11.6-14.8) % Plt Count 232 (150-400) X10^3/uL Neut % (Auto) 62.8 (50-75) % Lymph % (Auto) 27.6 (25-40) % [place] % (Auto) 7.8 (3-14) % Eos % (Auto) 1.2 L (2-4) % Baso % (Auto) 0.6 (0-2) % Neut # (Auto) 4900 (4837-7789) /uL Lymph # (Auto) 2200 (8118-8856) /uL [place] # (Auto) 600 (0-900) /uL Eos # (Auto) 100 (0-450) /uL Baso # (Auto) 0 (0-100) /uL ESR (0-20) MM/HR Sodium 135 L (137-145) mmol/L Potassium 4.3 (3.4-5.1) mmol/L Chloride 103 (98-107) mmol/L Carbon Dioxide 29 (22-32) mmol/L BUN 16 (7-17) mg/dL Creatinine 0.50 L (0.52-1.04) mg/dL Estimated GFR > 60.0 (>60) mL/min BUN/Creatinine Ratio 32.0 H (6-22) Glucose 69 L (80-110) mg/dL Lactate (0.7-2.1) mmol/L Calcium 9.2 (8.4-10.2) mg/dL Total Bilirubin 0.7 (0.2-1.3) mg/dL AST 27 (14-36) IU/L ALT 18 (<35) IU/L Alkaline Phosphatase 104 (38-126) U/L C-Reactive Protein (<1.0) mg/dL Total Protein 7.4 (6.3-8.2) g/dL Albumin 4.0 (3.5-5.0) g/dL Globulin 3.4 (1.7-4.1) g/dL Albumin/Globulin Ratio 1.2 (1.0-2.8) Lipase 46 (23-300) U/L Urine Color Red Urine Appearance Cloudy Urine pH 8.5 H (4.5-8.0) Ur Specific [place] <=1.005 (1.000-1.035) Urine Protein 3+ H (Negative) Urine Glucose (UA) Negative (Negative) g/dL Urine Ketones Trace H (NEGATIVE) Urine Occult Blood 3+ H (Negative) Urine Nitrate Positive H (Negative) Urine Bilirubin 1+ H (NEGATIVE) Ur Bilirubin Confirm Positive H (Negative) Urine Urobilinogen 1.0 (0.2) E.U./dL Ur Leukocyte Esterase 2+ H (NEGATIVE) Urine RBC 5-10/hpf H (0-5/HPF) Urine WBC 5-10/hpf H (0-5/HPF) Amorphous Sediment 3+ Urine Bacteria Many (>30) H (None) Ur Culture Indicated? Specimen cultured 05/26/21 05/26/21 05/26/21 Range/Units 20:05 20:05 20:05 WBC (4.5-11.0) X10^3/uL RBC (4.0-5.2) X10^6/uL Hgb (12.0-16.0) g/dL Hct (36-46) % MCV (80-100) fL MCH (26-34) PG MCHC (30-36) % RDW (11.6-14.8) % Plt Count (150-400) X10^3/uL Neut % (Auto) (50-75) % Lymph % (Auto) (25-40) % [place] % (Auto) (3-14) % Eos % (Auto) (2-4) % Baso % (Auto) (0-2) % Neut # (Auto) (5179-2958) /uL Lymph # (Auto) (6404-5358) /uL [place] # (Auto) (0-900) /uL Eos # (Auto) (0-450) /uL Baso # (Auto) (0-100) /uL ESR 9 (0-20) MM/HR Sodium (137-145) mmol/L Potassium (3.4-5.1) mmol/L Chloride (98-107) mmol/L Carbon Dioxide (22-32) mmol/L BUN (7-17) mg/dL Creatinine (0.52-1.04) mg/dL Estimated GFR (>60) mL/min BUN/Creatinine Ratio (6-22) Glucose (80-110) mg/dL Lactate 1.4 (0.7-2.1) mmol/L Calcium (8.4-10.2) mg/dL Total Bilirubin (0.2-1.3) mg/dL AST (14-36) IU/L ALT (<35) IU/L Alkaline Phosphatase (38-126) U/L C-Reactive Protein 2.3 H (<1.0) mg/dL Total Protein (6.3-8.2) g/dL Albumin (3.5-5.0) g/dL Globulin (1.7-4.1) g/dL Albumin/Globulin Ratio (1.0-2.8) Lipase (23-300) U/L Urine Color Urine Appearance Urine pH (4.5-8.0) Ur Specific [place] (1.000-1.035) Urine Protein (Negative) Urine Glucose (UA) (Negative) g/dL Urine Ketones (NEGATIVE) Urine Occult Blood (Negative) Urine Nitrate (Negative) Urine Bilirubin (NEGATIVE) Ur Bilirubin Confirm (Negative) Urine Urobilinogen (0.2) E.U./dL Ur Leukocyte Esterase (NEGATIVE) Urine RBC (0-5/HPF) Urine WBC (0-5/HPF) Amorphous Sediment Urine Bacteria (None) Ur Culture Indicated? MDM Narrative Medical decision making narrative: 61-year-old female with past medical history neurogenic bladder, flaccid paraplegia, hepatic cirrhosis, hepatitis C, pressure ulcers of the sacral and hip regions, osteomyeltis presents to the ED with 2 weeks of hematuria. Concern for UTI versus anemia versus urolithiasis versus bladder neoplasm vs osteomyelitis. Will order labs, lactate, UA, CT IVP, ESR, CRP. Will give toradol for pain. UA positive for UTI. Will treat with ceftriaxone 1g IV. Will reassess. 1999 (Harvinder) -patient received in sign-out. I reviewed the clinical course up until this point as well as performed an independent history and physical exam. CT IVP ordered for reports of painless hematuria. The findings of were unremarkable. Vo catheter switched out and urine is now clear and yellow, hematuria resolved. Labs and imaging are very reassuring. Patient resting comfortably, no signs of sepsis. She is appropriate for discharge, return precautions given and questions answered to her apparent satisfaction Discharge Plan Departure Patient Disposition: Home Clinical Impression: UTI (urinary tract infection) Instructions: DI for Urinary Tract Infection (UTI) Activity Restrictions/Additional Instructions: *You have been diagnosed with [urinary tract infection. Your history and physical exam as well as labs and imaging are very reassuring. *What to do: *Please continue to take your regular medications as directed. [ x] New medication prescriptions sent to your pharmacy: [[facility] in [place] ] [ ] New medication written as a paper prescription [ ] No new medications given *Please follow up with your primary care provider in 2-3 days, call for an appointment. Let them know you were seen in the Emergency Department and that we ask that you be seen in follow up. We will electronically transmit a record of today's note if your PCP is in our system *If you do not have a primary care provider please contact the [facility] Resource line at [phone]. They will ask some questions about your medical history and help get you set up with a doctor in the community. *Return to Emergency Department if you should have any new, worsening or concerning symptoms, such as [fever greater than 101 F, shaking chills, worsening pain, persistent vomiting or other bothersome symptoms] Prescriptions: New cefuroxime axetil 500 mg tablet 500 mg PO BID Qty: 14 0RF No Action vakpisbnoq-qvygkdhklqwdc-hnib 50-325-40 mg tablet 1 tab PO DAILY PRN (Reason: pain) 0RF Label Comments: TAKE 1 TABLET BY MOUTH DAILY NEEDED FOR PAIN omeprazole 20 mg capsule,delayed release(DR/EC) 20 mg PO QAM 0RF Label Comments: take 1 capsule by mouth every morning before breakfast Mavyret 100-40 mg tablet 3 tab PO QPM 0RF Label Comments: patient states takes at 8 p.m. daily chlorhexidine gluconate [Paroex Oral Rinse] 0.12 % mouthwash 15 ml BUCCAL BID Qty: 473 0RF furosemide 20 mg tablet 20 mg PO DAILY 0RF Label Comments: 20 mg PO DAILY 30 days levofloxacin 500 mg tablet 500 mg PO DAILY 0RF Label Comments: take 1 tablet by mouth once daily for 14 days DO NOT TAKE LEVOFLO...(REFER TO PRESCRIPTION NOTES). spironolactone 50 mg tablet 50 mg PO DAILY 0RF Label Comments: 50 mg PO DAILY 30 days Adult 50 Plus Probiotic 4 billion cell capsule 4,000 mmu cells PO DAILY 0RF Rx Instructions: administer with a meal oxycodone 10 mg tablet 10 mg PO Q6H PRN0RF Osphena 60 mg tablet 60 mg PO DAILY Qty: 90 3RF Rx Instructions: must administer with food, preferably a high-fat meal Referrals: Frances Savage FNP-C [Primary Care Provider] -
[2021-05-26 20:20] LABS: Appearance Urine UA CLOUDY; Bilirubin Urine UA 1+ (NEGATIVE); Color Urine UA RED; Glucose Urine UA NEGATIVE (Negative); Ketones Urine UA TRACE (NEGATIVE); Leukocyte Esterase Urine UA 2+ (NEGATIVE); Nitrite Urine UA POSITIVE (Negative); Occult Blood Urine UA 3+ (Negative); Protein Urine UA 3+ (Negative); Specific Gravity Urine UA <=1.005 (1.000-1.035)
[2021-05-26 20:20] LABS: Add Manual Diff / Slide Review NO; Basophils Absolute Auto 0 /uL (0-100); Basophils Percent Auto 0.6 % (0-2); Eosinophils Absolute Auto 100 /uL (0-450); Eosinophils Percent Auto 1.2 % (2-4); Hematocrit 42.4 % (36-46); Hemoglobin 13.9 g/dL (12.0-16.0); Lymphocytes Absolute Auto 2200 /uL (1100-4500); Lymphocytes Percent Auto 27.6 % (25-40); Mean Corpuscular HGB Conc 32.8 % (30-36); Mean Corpuscular Hemoglobin 29.1 PG (26-34); Mean Corpuscular Volume 88.7 fL (80-100); Monocytes Absolute Auto 600 /uL (0-900); Monocytes Percent Auto 7.8 % (3-14); Neutrophils Absolute Auto 4900 /uL (1500-7000); Neutrophils Percent Auto 62.8 % (50-75); Platelet Count 232 X10^3/uL (150-400); Red Blood Cell Count 4.78 X10^6/uL (4.0-5.2); Red Cell Distribution Width 15.7 % (11.6-14.8); White Blood Cell Count 7.9 X10^3/uL (4.5-11.0)
[2021-05-26 20:21] LABS: pH Urine UA 8.5 (4.5-8.0)
[2021-05-26 20:27] LABS: Lactate (Lactic Acid) 1.4 mmol/L (0.7-2.1)
[2021-05-26 20:28] LABS: Amorphous Sediment Urine 3+; Bacteria Urine Many (>30); Culture Indicated Urine Specimen Cultured; Ictotest Urine Positive (Negative); WBC Urine 5-10/HPF (0-5/HPF)
[2021-05-26 20:28] LABS: Alanine Aminotransferase 18 IU/L (<35); Albumin Globulin Ratio 1.2 (1.0-2.8); Alkaline Phosphatase 104 U/L (38-126); Aspartate Aminotransferase 27 IU/L (14-36); Bilirubin Total 0.7 mg/dL (0.2-1.3); Blood Urea Nitrogen 16 mg/dL (7-17); Calcium 9.2 mg/dL (8.4-10.2); Carbon Dioxide 29 mmol/L (22-32); Chloride 103 mmol/L (98-107); Estimated Glomerular Filt Rate > 60.0 mL/min (>60); Globulin 3.4 g/dL (1.7-4.1); Glucose 69 mg/dL (80-110); HEMOLYSIS < 15 (0-50); Lipase 46 U/L (23-300); Potassium 4.3 mmol/L (3.4-5.1); Sodium 135 mmol/L (137-145); Total Protein 7.4 g/dL (6.3-8.2)
[2021-05-26 20:36] LABS: RBC Urine 5-10/HPF (0-5/HPF)
--- NOTE | 2021-05-26 20:39 | DI.CT.S_ITS ---
PROCEDURE: CT ABDOMEN PELVIS WO/W CON INDICATIONS: Hematuria TECHNIQUE: Optional 5 mm thick noncontrast images acquired from the diaphragm to the symphysis pubis. After the administration of intravenous contrast, 5 mm thick images acquired from the diaphragm to the symphysis pubis after a 10-minute delay. 2 mm thick coronal and sagittal reformats were then performed of the kidneys and ureters. For radiation dose reduction, the following was used: automated exposure control, adjustment of mA and/or kV according to patient size. COMPARISON: [facility], CT, CT ABDOMEN PELVIS W CON, 01/18/2020, 16:53. FINDINGS: Image quality: Excellent. Lung bases: Lung bases are clear. Visualized lung faust demonstrate mild to moderate emphysematous change. Heart size is normal. Urinary system: Both kidneys are normal in size, without hydronephrosis or nephrolithiasis on pre-contrast images. No perinephric fat stranding. There is normal bilateral renal enhancement. Renal calyces appear normal in morphology when filled with contrast. Opacified portions of both ureters demonstrate normal caliber. A Ov catheter is present in the bladder, which is partly decompressed. There is air present in the bladder, possibly secondary to Vo catheter placement. No calcified bladder stones. Other solid organs: Liver is normal in size and enhancement. Again noted is surface nodularity consistent with cirrhotic change. Gallbladder is unremarkable . Biliary system is non dilated. Pancreas enhances normally. Spleen is normal in size and enhancement. No adrenal nodules. Peritoneum and bowel: Bowel loops demonstrate normal wall thickness and caliber. No free fluid or air. Nodes and vessels: No retroperitoneal or mesenteric adenopathy by size criteria. Aorta and inferior vena cava are normal in size. Abdominal wall: No ventral hernias. Pelvis: No pathologic free pelvic fluid. No inguinal hernias or adenopathy. Uterus is surgically absent. There is marked posterior pelvic floor relaxation. The rectum extends approximately 4.4 cm below the pubococcygeal line. There has been significant interval improvement in a presacral ulcer, nearly completely closed. However, a small ulcer extends in close proximity to the sacrum with significant sclerotic appearance of S5, likely representing chronic osteomyelitis of the inferior sacrum. Bones: No suspicious bony lesions. No vertebral body compression fractures. Probable chronic osteomyelitis of the inferior sacrum. Remote laminectomy and posterior fusion at T11-T12. IMPRESSION: 1. No renal stones, ureteral stones, or hydronephrosis. 2. A Vo catheter is present in the bladder, which is mostly decompressed. There is a significant amount of air present in the bladder, which is presumed secondary to Vo catheter placement. 3. Cirrhosis. 4. Significant improvement in pre sacral ulcer. However, there is probable chronic osteomyelitis involving the inferior sacrum. 5. Impressive posterior pelvic floor relaxation. The rectum extends approximately 4.4 cm below its expected inferior aspect. Dictated by: Kael Colvin M.D. on 05/26/2021 at 21:24 Approved by: Kael Colvin M.D. on 05/26/2021 at 21:35
[2021-05-26 20:52] LABS: C-Reactive Protein Quant 2.3 mg/dL (<1.0)
[2021-05-26 21:04] LABS: Erythrocyte Sedimentation Rate 9 MM/HR (0-20)
[2021-05-26] MEDS: cefTRIAXone 1,000 MG in SODIUM CHLORIDE 0.9% 100 ML 200 ML IV (21:18)
[2021-05-26] MEDS: HYDROMORPHONE 1 MG INJ IV (22:54)
== END 2021-05-26 23:13 | disposition home or self-care (01) ==
PROVIDERS: Student in an Organized Health Care Education/Training Program; Emergency Provider Emergency Medicine; PCP Nurse Practitioner
DX: N39.0 Urinary tract infection, site not specified (principal)
CPT/HCPCS: 36415; 51702; 74178; 80053; 81001; 83605; 83690; 85025; 85651; 86140; 87040; 87077; 87086; 87186; 96365; 96375; 99284; J0696; J1170; Q9967

== ENCOUNTER → 2021-06-03 15:18 | Outpatient (CLI) | payer OTHER, MEDICAID, SELFPAY ==
[2021-05-20 14:45] VITALS: BMI 16.7
== END ==
PROVIDERS: PCP Nurse Practitioner; Referring Provider Nurse Practitioner; Visit Provider Family Medicine
DX: L89.213 Pressure ulcer of right hip, stage 3 (principal); L89.154 Pressure ulcer of sacral region, stage 4; M46.28 Osteomyelitis of vertebra, sacral and sacrococcygeal region; G82.21 Paraplegia, complete; E46 Unspecified protein-calorie malnutrition; K74.60 Unspecified cirrhosis of liver; R79.82 Elevated C-reactive protein (CRP); Z91.19 Patient's noncompliance with other medical treatment and regimen; Z72.0 Tobacco use; Z74.09 Other reduced mobility
CPT/HCPCS: 99213; 99214

== ENCOUNTER → 2021-07-01 14:40 | Outpatient (CLI) | payer OTHER, MEDICAID, SELFPAY ==
[2021-05-20 14:45] VITALS: BMI 16.7
== END ==
PROVIDERS: PCP Nurse Practitioner; Referring Provider Nurse Practitioner; Visit Provider Family Medicine
DX: L89.154 Pressure ulcer of sacral region, stage 4 (principal); M46.28 Osteomyelitis of vertebra, sacral and sacrococcygeal region; G82.21 Paraplegia, complete; R79.82 Elevated C-reactive protein (CRP); K74.69 Other cirrhosis of liver; Z63.8 Other specified problems related to primary support group; Z91.19 Patient's noncompliance with other medical treatment and regimen; Z72.0 Tobacco use; Z74.09 Other reduced mobility
CPT/HCPCS: 99213

== ENCOUNTER → 2021-08-05 14:46 | Outpatient (CLI) | payer OTHER, MEDICAID, SELFPAY ==
[2021-05-20 14:45] VITALS: BMI 16.7
== END ==
PROVIDERS: PCP Nurse Practitioner; Referring Provider Nurse Practitioner; Visit Provider Family Medicine
DX: L89.154 Pressure ulcer of sacral region, stage 4 (principal); M46.28 Osteomyelitis of vertebra, sacral and sacrococcygeal region; T83.028A Displacement of other urinary catheter, initial encounter; R32 Unspecified urinary incontinence; G82.20 Paraplegia, unspecified; K74.69 Other cirrhosis of liver; Z91.19 Patient's noncompliance with other medical treatment and regimen; Z63.8 Other specified problems related to primary support group; Z72.0 Tobacco use
CPT/HCPCS: 99213

== ENCOUNTER 2021-08-05 15:48 | Emergency (ER) | payer OTHER, MEDICAID, SELFPAY ==
[2021-05-20 14:45] VITALS: BMI 16.7
[2021-08-05 15:55] VITALS: BP 132/78; PULSE 88; RESP 14; TEMP 36.8; O2SAT 96
== END 2021-08-05 19:10 | disposition left against medical advice (07) ==
PROVIDERS: Emergency Provider Emergency Medicine; PCP Nurse Practitioner; Referring Provider Family Medicine
DX: R10.2 Pelvic and perineal pain (principal)

== ENCOUNTER 2022-01-27 18:08 | Emergency (ER) | payer OTHER, MEDICAID, SELFPAY ==
[2021-05-20 14:45] VITALS: BMI 16.7
[2022-01-27] VITALS (22 sets, daily range): BP systolic 117–142; BP diastolic 57–67; PULSE 71–95; O2SAT 91–96
--- NOTE | 2022-01-27 19:18 | PC.NURSE ---
pt c/o of inside rectum and vagina is painful. pt states she doesn't have feeling there, dr explained nerves from outside vs inside. pt understood. pt also ran out of her home morphine and oxycodone yesterday.
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
[2022-01-27 19:46] LABS: Appearance Urine UA SL CLOUDY; Bilirubin Urine UA NEGATIVE (NEGATIVE); Color Urine UA YELLOW; Glucose Urine UA NEGATIVE (Negative); Ketones Urine UA TRACE (NEGATIVE); Leukocyte Esterase Urine UA 3+ (NEGATIVE); Nitrite Urine UA POSITIVE (Negative); Occult Blood Urine UA 3+ (Negative); Protein Urine UA 2+ (Negative); Urobilinogen Urine UA 0.2 E.U./dL (0.2)
[2022-01-27] MEDS: OXYCODONE ER 20 MG TAB PO (19:47)
[2022-01-27 19:52] LABS: pH Urine UA 6.5 (4.5-8.0)
[2022-01-27 19:56] LABS: Bacteria Urine Many (>30); RBC Urine 1-5/HPF (0-5/HPF); Squamous Epithelial Cell Urine 0-1 /HPF (0-5/HPF); WBC Urine 10-30/HPF (0-5/HPF)
[2022-01-27 19:57] LABS: Culture Indicated Urine Specimen Cultured
[2022-01-27] MEDS: NITROFURANTOIN ER 100 MG CAPSULE PO (22:03)
[2022-01-27] MEDS: ACETAMINOPHEN 325 MG TABLET 650 MG PO (22:56)
== END 2022-01-27 23:02 | disposition home or self-care (01) ==
PROVIDERS: Emergency Provider Emergency Medicine; PCP Nurse Practitioner
DX: N39.0 Urinary tract infection, site not specified (principal)
CPT/HCPCS: 81001; 82962; 87077; 87086; 87186; 99283

== ENCOUNTER 2022-01-29 11:42 | Observation (INO) | payer OTHER, MEDICAID, SELFPAY ==
[2021-05-20 14:45] VITALS: BMI 16.7
[2022-01-29] VITALS (15 sets, daily range): BP systolic 102–150; BP diastolic 51–101; PULSE 76–115; RESP 15–33; TEMP 36.3–36.7; O2SAT 96–100; BMI 14.8
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
--- NOTE | 2022-01-29 13:11 | DI.CT.S_ITS ---
PROCEDURE: CT ABDOMEN PELVIS W CON INDICATIONS: gi bleed TECHNIQUE: After the administration of intravenous contrast, axial sections acquired from the lung bases to the pubic symphysis. Coronal and sagittal reformats were performed. For radiation dose reduction, the following was used: automated exposure control, adjustment of mA and/or kV according to patient size. COMPARISON: None. FINDINGS: Image quality: Excellent. Lung bases: Unremarkable. Breast implants are partially imaged. Heart: No significant findings. ABDOMEN: Liver: Nodular appearance of the liver is again consistent with cirrhosis. Gallbladder: Unremarkable. Biliary ducts: Unremarkable. Pancreas: Unremarkable. Spleen: Unremarkable. Adrenal Glands: Unremarkable. Kidneys and Ureters: Unremarkable. Stomach and Bowel: Diffuse bowel wall thickening throughout the colon is suspicious for a nonspecific colitis. No definite focal intraluminal contrast extravasation is seen. Peritoneum: No abnormal intraperitoneal fluid. No free air. Ventral Wall: No hernias. Abdominal Nodes: No retroperitoneal or mesenteric adenopathy by size criteria. Vessels: Aorta and inferior vena cava are normal in size. Moderate aortic atherosclerotic calcifications. PELVIS: Pelvic Organs: Unremarkable. Bladder: A 2.0 x 1.3 cm calcification is seen in the dependent portion of the bladder. Foci of gas are seen in the nondependent portion of the bladder. Pelvic Nodes: No enlarged lymph nodes. Miscellaneous: No hernias are seen. Bones: Previously seen soft tissue ulceration overlying the sacrum appears to have healed with residual subcutaneous scarring or edema. IMPRESSION: 1. Diffuse colonic wall thickening is nonspecific but may be secondary to a nonspecific colitis. No active contrast extravasation is seen into the GI lumen. 2. Gas within the nondependent portion of the bladder may be secondary to recent instrumentation or infection with a gas-forming organism. Recommend correlation with history and urinalysis if indicated. A 2 cm calcification is seen in the dependent portion of the bladder. 3. Hepatic cirrhosis. 4. Previously seen sacral decubitus ulcer appears improved with residual subcutaneous scarring or edema. Approved by: Kg Burrows M.D. on 01/29/2022 at 14:43
[2022-01-29 13:16] LABS: INR 1.3 (0.9-1.3); Prothrombin Time 15.4 SECONDS (10.1-12.7)
[2022-01-29 13:19] LABS: Add Manual Diff / Slide Review NO; Basophils Absolute Auto 0 /uL (0-100); Basophils Percent Auto 0.2 % (0-2); Eosinophils Absolute Auto 0 /uL (0-450); Eosinophils Percent Auto 0.1 % (2-4); Hematocrit 52.1 % (36-46); Hemoglobin 17.4 g/dL (12.0-16.0); Lymphocytes Absolute Auto 3200 /uL (1100-4500); Lymphocytes Percent Auto 26.2 % (25-40); Mean Corpuscular HGB Conc 33.4 % (30-36); Mean Corpuscular Hemoglobin 30.5 PG (26-34); Mean Corpuscular Volume 91.4 fL (80-100); Monocytes Absolute Auto 900 /uL (0-900); Monocytes Percent Auto 7.6 % (3-14); Neutrophils Absolute Auto 8100 /uL (1500-7000); Neutrophils Percent Auto 65.9 % (50-75); PTT Partial Thromboplastin Tim 39 SECONDS (26-36); Platelet Count 270 X10^3/uL (150-400); Red Cell Distribution Width 15.3 % (11.6-14.8); White Blood Cell Count 12.3 X10^3/uL (4.5-11.0)
[2022-01-29 13:22] LABS: Alanine Aminotransferase 27 IU/L (<35); Albumin 4.7 g/dL (3.5-5.0); Albumin Globulin Ratio 1.2 (1.0-2.8); Alkaline Phosphatase 121 U/L (38-126); Aspartate Aminotransferase 24 IU/L (14-36); BUN Creatinine Ratio 52.7 (6-22); Bilirubin Total 0.6 mg/dL (0.2-1.3); Blood Urea Nitrogen 29 mg/dL (7-17); Calcium 9.7 mg/dL (8.4-10.2); Carbon Dioxide 16 mmol/L (22-32); Chloride 111 mmol/L (98-107); Estimated Glomerular Filt Rate > 60 mL/min (>60); Globulin 3.9 g/dL (1.7-4.1); Glucose 111 mg/dL (80-110); HEMOLYSIS < 15 (0-50); Lactate (Lactic Acid) 1.6 mmol/L (0.7-2.1); Potassium 4.1 mmol/L (3.4-5.1); Sodium 144 mmol/L (137-145); Total Protein 8.6 g/dL (6.3-8.2)
--- NOTE | 2022-01-29 13:23 | PC.NURSE ---
allevyn dressing placed on coccyx area for open pressure sore. incontinence care provided. meeting with [employer].
[2022-01-29] MEDS: PANTOPRAZOLE 40 MG VIAL IV ×2 (13:25→21:49)
[2022-01-29 13:28] LABS: Acetaminophen < 10 ug/mL (10-30); Salicylate 15.6 mg/dL (<20)
[2022-01-29] MEDS: SODIUM CHLORIDE 0.9% 1,000 ML 500 ML IV (13:30)
--- NOTE | 2022-01-29 14:15 | PC.NURSE ---
VBG obtained and 18G US 1.75in placed under ultrasound. no complications and pt tolerated well.
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
[2022-01-29 14:27] LABS: HCO3 VBG 22 mmol/L (23-28); Oxygen Saturation VBG 44 % (70-75); PCO2 VBG 37.7 mmHg (45-50); PO2 VBG 25 mmHg (35-45); Total CO2 VBG 23 mmol/L (24-29); pH VBG 7.36 (7.33-7.43)
[2022-01-29] MEDS: cefTRIAXone 1,000 MG in SODIUM CHLORIDE 0.9% 100 ML 200 MG IV (14:46)
[2022-01-29] MEDS: HYDROMORPHONE 1 MG INJ IV (14:47)
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
[2022-01-29] MEDS: LACTATED RINGERS 1,000 ML 1000 ML IV (15:27)
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
[2022-01-29 18:25] LABS: COVID19 -Nasal RAPID Negative (Negative)
[2022-01-29 19:15] LABS: Appearance Urine UA CLOUDY; Bilirubin Urine UA NEGATIVE (NEGATIVE); Color Urine UA YELLOW; Glucose Urine UA NEGATIVE (Negative); Ketones Urine UA 1+ (NEGATIVE); Leukocyte Esterase Urine UA 2+ (NEGATIVE); Nitrite Urine UA NEGATIVE (Negative); Occult Blood Urine UA 3+ (Negative); Protein Urine UA 2+ (Negative); Specific Gravity Urine UA 1.015 (1.000-1.035); Urobilinogen Urine UA 0.2 E.U./dL (0.2)
[2022-01-29 19:22] LABS: Amorphous Sediment Urine 1+; Bacteria Urine Many (>30); Culture Indicated Urine Specimen Cultured; RBC Urine 1-5/HPF (0-5/HPF); Squamous Epithelial Cell Urine None Seen (0-5/HPF); WBC Urine 10-30/HPF (0-5/HPF)
[2022-01-29] MEDS: OXYCODONE IR 10 MG TABLET PO (22:01)
[2022-01-29] MEDS: MELATONIN 3 MG TABLET 6 MG PO (23:10)
[2022-01-30] VITALS: BP 96/51; PULSE 71; RESP 18; TEMP 36.4; O2SAT 97
[2022-01-30 06:00] VITALS: BP 113/65; PULSE 67; RESP 18; TEMP 36.3; O2SAT 98
[2022-01-30] MEDS: OXYCODONE IR 10 MG TABLET PO ×4 (06:43→23:19)
[2022-01-30 09:22] VITALS: BP 117/69; PULSE 76; RESP 18; TEMP 36.7; O2SAT 97
[2022-01-30] MEDS: SPIRONOLACTONE 25 MG TABLET 50 MG PO (11:04)
[2022-01-30] MEDS: PANTOPRAZOLE 40 MG VIAL IV ×2 (11:04→21:23)
[2022-01-30 14:21] LABS: Add Manual Diff / Slide Review NO; Basophils Absolute Auto 100 /uL (0-100); Basophils Percent Auto 0.9 % (0-2); Eosinophils Absolute Auto 0 /uL (0-450); Eosinophils Percent Auto 0.6 % (2-4); Hematocrit 43.4 % (36-46); Hemoglobin 14.8 g/dL (12.0-16.0); Lymphocytes Absolute Auto 3300 /uL (1100-4500); Lymphocytes Percent Auto 41.6 % (25-40); Mean Corpuscular Hemoglobin 31.4 PG (26-34); Mean Corpuscular Volume 92.2 fL (80-100); Monocytes Absolute Auto 700 /uL (0-900); Monocytes Percent Auto 8.7 % (3-14); Neutrophils Absolute Auto 3800 /uL (1500-7000); Neutrophils Percent Auto 48.2 % (50-75); Platelet Count 213 X10^3/uL (150-400); Red Blood Cell Count 4.71 X10^6/uL (4.0-5.2); Red Cell Distribution Width 15.2 % (11.6-14.8); White Blood Cell Count 7.9 X10^3/uL (4.5-11.0)
[2022-01-30 14:34] LABS: BUN Creatinine Ratio 24.6 (6-22); Blood Urea Nitrogen 16 mg/dL (7-17); Calcium 8.7 mg/dL (8.4-10.2); Carbon Dioxide 18 mmol/L (22-32); Chloride 111 mmol/L (98-107); Estimated Glomerular Filt Rate > 60 mL/min (>60); Glucose 91 mg/dL (80-110); HEMOLYSIS < 15 (0-50); Potassium 3.7 mmol/L (3.4-5.1); Sodium 141 mmol/L (137-145)
[2022-01-30] MEDS: cefTRIAXone 1,000 MG in SODIUM CHLORIDE 0.9% 100 ML 200 MG IV (14:43)
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
--- NOTE | 2022-01-30 15:55 | PC.NURSE ---
Pt reports burning sensation when urinating. When asked which location most of her pain resides, pt claimed it to be her mitchell area. Pt was given a shower this afternoon. Plan was for her to go home today, however, transportation is an issue. Pt states her vehicle no longer runs. horticultural manager attempted to have BLS for transportation; did not work out. Pt is paraplegic without her wheelchair; taxi was not an appropriate choice. Provider notified of the situation. Will hold off d/c for tomorrow.
[2022-01-30 16:20] VITALS: BP 105/64; PULSE 70; RESP 16; TEMP 36.4; O2SAT 99
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
--- NOTE | 2022-01-30 18:10 | PC.NURSE ---
Addendum entered by Philly Rdz R.N. 01/30/22 19:14: Patient will not be discharging today, most likely tomorrow. Original Note: Patient in/out cathed for 300cc of hay colored urine with sediment in it. She is parapeligic and has no feeling from waste down. Patient has been incontinent of urine but does retain. She is comfortable and pain medicaoitn given earlier.
[2022-01-30 19:30] VITALS: BP 127/70; PULSE 68; RESP 18; TEMP 36.6; O2SAT 97
[2022-01-30] MEDS: ACETAMINOPHEN 325 MG TABLET 650 MG PO (21:31)
[2022-01-31] MEDS: MELATONIN 3 MG TABLET 6 MG PO (01:13)
[2022-01-31 01:55] VITALS: BP 157/85; PULSE 73; RESP 18; TEMP 36.5; O2SAT 97
[2022-01-31] MEDS: OXYCODONE IR 10 MG TABLET PO ×2 (05:12→11:28)
[2022-01-31 05:25] LABS: Add Manual Diff / Slide Review NO; Basophils Absolute Auto 0 /uL (0-100); Basophils Percent Auto 0.6 % (0-2); Eosinophils Absolute Auto 100 /uL (0-450); Eosinophils Percent Auto 1.2 % (2-4); Hematocrit 37.6 % (36-46); Hemoglobin 12.9 g/dL (12.0-16.0); Lymphocytes Absolute Auto 3100 /uL (1100-4500); Lymphocytes Percent Auto 50.5 % (25-40); Mean Corpuscular HGB Conc 34.4 % (30-36); Mean Corpuscular Hemoglobin 31.3 PG (26-34); Mean Corpuscular Volume 91.1 fL (80-100); Monocytes Absolute Auto 500 /uL (0-900); Monocytes Percent Auto 8.8 % (3-14); Neutrophils Absolute Auto 2400 /uL (1500-7000); Neutrophils Percent Auto 38.9 % (50-75); Platelet Count 156 X10^3/uL (150-400); Red Blood Cell Count 4.12 X10^6/uL (4.0-5.2); Red Cell Distribution Width 15.2 % (11.6-14.8); White Blood Cell Count 6.2 X10^3/uL (4.5-11.0)
[2022-01-31 05:36] LABS: BUN Creatinine Ratio 31.4 (6-22); Blood Urea Nitrogen 16 mg/dL (7-17); Calcium 8.2 mg/dL (8.4-10.2); Carbon Dioxide 19 mmol/L (22-32); Chloride 113 mmol/L (98-107); Estimated Glomerular Filt Rate > 60 mL/min (>60); Glucose 83 mg/dL (80-110); HEMOLYSIS < 15 (0-50); Potassium 3.7 mmol/L (3.4-5.1); Sodium 140 mmol/L (137-145)
[2022-01-31] MEDS: PANTOPRAZOLE 40 MG VIAL IV (08:15)
[2022-01-31] MEDS: SPIRONOLACTONE 25 MG TABLET 50 MG PO (08:15)
--- NOTE | 2022-01-31 09:11 | CM.DPC ---
Addendum entered by Christina Moses R.N. 01/31/22 10:39: DCP able to talk with pt brother. Pt brother confirms that he will be at the house waiting for pt arrival. DCP verbalized the BLS transport and brother is OK with this plan. Christina Moses RN/ALIA Original Note: DCP Cont: Pt is medically stable for discharge. Pt is needing transport and BLS transport set up for 1345 today. DCP attempted to contact the brother 2x this morning with no answer. Unable to leave message today as his mailbox not able to receive messages. [facility] contacted and referral made. DCP to fax over information. Christina Moses RN/ALIA
[2022-01-31 12:00] VITALS: BP 111/61; PULSE 72; RESP 14; O2SAT 97
[2022-01-31] MEDS: cefTRIAXone 1,000 MG in SODIUM CHLORIDE 0.9% 100 ML 200 MG IV (12:41)
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
--- NOTE | 2022-01-31 14:40 | PC.NURSE ---
Discharge Note Patient A&O, VSS, RA, no complaints of pain/discomfort. Patient agreeable to discharge plan. Discharge packet reviewed with patient, all questions/concerns addressed. PIV discontinued. Patient able to change and dress self with minimal assistance. Patient assisted with packing of belongings. Patient transported home via ambulance.
== END 2022-01-31 14:15 | disposition home health service (06) ==
LOC: ED 13:02 → AC 15:56
PROVIDERS: Admitting Provider Student in an Organized Health Care Education/Training Program; Emergency Provider Emergency Medicine; PCP Nurse Practitioner; Referring Provider Emergency Medicine; Visit Provider Student in an Organized Health Care Education/Training Program
DX: K92.1 Melena (principal); R33.8 Other retention of urine; N30.00 Acute cystitis without hematuria; G89.29 Other chronic pain; L89.159 Pressure ulcer of sacral region, unspecified stage; K74.69 Other cirrhosis of liver; G82.20 Paraplegia, unspecified; F17.210 Nicotine dependence, cigarettes, uncomplicated; Z99.3 Dependence on wheelchair; Z20.822 Contact with and (suspected) exposure to COVID-19
CPT/HCPCS: 36415; 74177; 80048; 80053; 80329; 81001; 82272; 82805; 83605; 85025; 85610; 85730; 86850; 86900; 86901; 87086; 87635; 93005; 96361; 96365; 96366; 96375; 96376; 99284; C9803; G0378; C9113; G0480; J0696; J1170; Q9967